=== PATIENT | male | born 1945 | race Caucasian/White ===

== ENCOUNTER 2018-02-23 17:27 | Inpatient (IN) ==
[2018-02-23] MEDS ORDERED: Sod Chloride 0.9% Inj 1,000 ML IV.SIG SCH ×2 (17:45→18:45)
[2018-02-23 18:09] LABS: Baso # (Auto) 0.1 th/mm3 (0.0-0.2); Baso % (Auto) 0.5 % (0.0-2.0); Eos # (Auto) 0.1 th/mm3 (0.0-0.4); Hematocrit 32.7 % (39.0-51.0); Hemoglobin 10.7 gm/dL (13.0-17.0); Lymph # (Auto) 1.8 th/mm3 (1.0-4.8); Mean Corpuscular HGB Conc 32.6 % (32.0-36.0); Mean Corpuscular Hemoglobin 29.9 pg (27.0-34.0); Mean Corpuscular Volume 91.6 fL (80.0-100.0); Mean Platelet Volume 8.6 fL (7.0-11.0); Mono # (Auto) 1.1 th/mm3 (0.0-0.9); Mono % (Auto) 7.4 % (0.0-8.0); Neut # (Auto) 11.9 th/mm3 (1.8-7.7); Neut % (Auto) 79.1 % (16.0-70.0); Platelet Count 286 th/mm3 (150-450); Red Blood Count 3.57 mil/mm3 (4.50-5.90); Red Cell Distribution Width 14.4 % (11.6-17.2)
--- NOTE | 2018-02-23 18:14 | ED ---
HPI General Chief complaint: Weakness Stated complaint: Medical,Evac Time Seen by Provider: 02/23/18 17:37 History of Present Illness HPI Narrative: This is a 72-year-old male with history of hypertension, diabetes mellitus, recent pneumonia, recent congestive heart failure, renal insufficiency, who presents via the [place] [facility] for complaints of weakness and low blood pressure. Apparently last night he was noted to have low blood pressure at the [facility]. It continued into today and when they noted his blood pressure to be below 100 systolic, they called 911 for EMS evaluation. When paramedics arrived, they found him to have a systolic blood pressure in the 60s. Given his CHF and renal insufficiency history, they administered 500 cc of normal saline. It did bring his blood pressure up into the 80s systolic. The patient started to perk up however we did appear to be confused. Son is at the bedside states that his father was doing okay yesterday when they went to visit him however he definitely seems more confused than baseline. Related Data Home Medications Medication Instructions Recorded Confirmed amoxicillin-pot clavulanate 1 tab PO Q12H 02/23/18 02/23/18 [Augmentin] atenolol [Tenormin] 50 mg PO DAILY 02/23/18 02/23/18 budesonide-formoterol [Symbicort] 2 puff INHALATION BID 02/23/18 02/23/18 clopidogrel [Plavix] 75 mg PO DAILY 02/23/18 02/23/18 cyanocobalamin (vitamin B-12) 1,000 mcg IM QMONTH 02/23/18 02/23/18 dexamethasone sodium phosphate 4 mg IV QWEEK 02/23/18 02/23/18 doxazosin 2 mg PO DAILY 02/23/18 02/23/18 fexofenadine [Shiloh Allergy] 60 mg PO BID 02/23/18 02/23/18 furosemide [Lasix] 40 mg PO BID 02/23/18 02/23/18 gabapentin 300 mg PO TID 02/23/18 02/23/18 glipizide 5 mg PO DAILY 02/23/18 02/23/18 guaifenesin [Mucinex] 600 mg PO Q12H 02/23/18 02/23/18 ipratropium-albuterol 3 ml INHALATION QID 02/23/18 02/23/18 lisinopril 10 mg PO DAILY 02/23/18 02/23/18 melatonin 3 mg PO HS PRN 02/23/18 02/23/18 montelukast 10 mg PO QPM 02/23/18 02/23/18 oxycodone-acetaminophen [Percocet] 1 tab PO Q4H PRN 02/23/18 02/23/18 pantoprazole [Protonix] 40 mg PO DAILY 02/23/18 02/23/18 potassium chloride 20 meq PO BID 02/23/18 02/23/18 propranolol 40 mg PO BID 02/23/18 02/23/18 ropinirole [Requip] 2 mg PO HS 02/23/18 02/23/18 sertraline [Zoloft] 50 mg PO DAILY 02/23/18 02/23/18 trazodone 150 mg PO DAILY 02/23/18 02/23/18 Allergies Allergy/AdvReac Type Severity Reaction Status Date / Time codeine Allergy Mild Constipatio Verified 02/23/18 17:36 n Review of Systems ROS Unobtainable ROS Unobtainable: unobtainable due to mental status ROS: all other systems reviewed are negative Constitutional Denies chills and Denies fever(s) Eyes Reports system reviewed and no additional complaints, except as docu ENT Reports system reviewed and no additional complaints, except as docu Cardiovascular Denies chest pain and Reports dyspnea Respiratory Reports chest congestion, Denies cough and Reports dyspnea Gastrointestinal Denies abdominal pain, Denies nausea and Denies vomiting Genitourinary Reports other (Decreased urine output.) Musculoskeletal Reports system reviewed and no additional complaints, except as docu Neurologic Reports confusion, Denies headache(s) and Reports weakness (Generalized) [facility] History Medical History CKD (chronic kidney disease) (Acute) COPD (chronic obstructive pulmonary disease) (Acute) Hypertension (Acute) Surgical History Surgical History Hx of BKA (Acute) Social History Social History Substance History: No History of Abuse Second Hand Smoke Exposure: No Smoking Status: Never smoker How Often Do You Have a Drink Containing Alcohol: Never Recent Travel in [facility] within the Last 8 Weeks: No Recent Out of Country Travel within the Last 8 Weeks: No Immunization History Tetanus Immunization: >5 Years Exam Narrative Exam Narrative: GENERAL: Well-developed well-nourished male in mild respiratory discomfort. SKIN: Focused skin assessment warm/dry. HEAD: Atraumatic. Normocephalic. EYES: No scleral icterus. No injection or drainage. ENT: No nasal bleeding or discharge. Mucous membranes pink and moist. NECK: Trachea midline. No JVD. Supple. CARDIOVASCULAR: Regular rate and rhythm. No murmur appreciated. RESPIRATORY: No obvious rales. Patient does have decreased respiratory effort. GASTROINTESTINAL: Abdomen soft, obese, non-tender, nondistended. MUSCULOSKELETAL: No obvious deformities. No clubbing. No cyanosis. Trace pretibial edema. NEUROLOGICAL: Awake and mildly confused. No obvious cranial nerve deficits. Motor grossly within normal limits. Normal speech. Course Initial Documented Vital Signs Temperature 98.7 F 02/23/18 17:27 Pulse Rate 56 L 02/23/18 17:27 Respiratory Rate 14 02/23/18 17:27 Blood Pressure 82/48 L 02/23/18 17:27 Pulse Oximetry 90 L 02/23/18 17:27 Last Documented Vital Signs Temperature 98.7 F 02/23/18 17:27 Pulse Rate 55 L 02/23/18 18:10 Respiratory Rate 14 02/23/18 18:10 Blood Pressure 81/48 L 02/23/18 18:10 Pulse Oximetry 96 02/23/18 18:10 Critical Care Time Critical Care Time: Yes Total Critical Care Time: 45 Attestation: Aggregate critical care time was 45 minutes. Time to perform other separately billable procedures was not included in the critical care time. My time did not include minutes spent treating any other patients simultaneously or on activities that did not directly contribute to the patient's treatment. The services I provided to this patient were to treat and/or prevent clinically significant deterioration that could result in: I provided critical care services requiring my management, as noted below: Chart data review, documentation time, medication orders and management, vital sign assessments/reviewing monitor data, ordering and reviewing lab tests, ordering and interpreting/reviewing x-rays and diagnostic studies, care of the patient and discussion of the patient with the admitting physicians. Medical Decision Making MDM Narrative Medical decision making narrative: This is a 72-year-old male who was reportedly recently admitted and discharged from [facility] for pneumonia and fluid overload, presents from the [facility] with reported hypotension. Patient reportedly had a systolic blood pressure in the 60s when paramedics arrived. Given his CHF history and fluid overload, they gave him 500 cc of fluid. This brought his blood pressure up into the 80s systolic. Labs show that his creatinine is extremely elevated from baseline. It is above 6. It usually in the 1-2 range. He is been given a second liter of IV fluid. His potassium was also 5.6. He was given 1 g of calcium chloride and 50 mEq of sodium bicarb. Urinalysis also showed a urinary tract infection for which he was given Rocephin. He has cultures pending at this time. Case was discussed with Dr. Treadwell, instructional design manager, who agrees with the above admission. He will see the patient and write admission orders. Medical Screen Exam Complete: Yes Emergency Medical Condition: Yes Differential Diagnosis Differential Diagnosis: Acute kidney injury versus metabolic derangement versus sepsis versus over diuresed Lab Data Result diagrams: 02/23/18 17:45 02/23/18 17:45 Lab Results 02/23/18 02/23/18 02/23/18 Range/Units 17:32 17:45 17:45 WBC 15.0 H (4.0-11.0) th/mm3 RBC 3.57 L (4.50-5.90) mil/mm3 Hgb 10.7 L (13.0-17.0) gm/dL Hct 32.7 L (39.0-51.0) % MCV 91.6 (80.0-100.0) fL MCH 29.9 (27.0-34.0) pg MCHC 32.6 (32.0-36.0) % RDW 14.4 (11.6-17.2) % Plt Count 286 (150-450) th/mm3 MPV 8.6 (7.0-11.0) fL Prelim Diff (Auto) Director Human Services Neut % (Auto) 79.1 H (16.0-70.0) % Lymph % (Auto) 12.0 (9.0-44.0) % [place] % (Auto) 7.4 (0.0-8.0) % Eos % (Auto) 1.0 (0.0-4.0) % Baso % (Auto) 0.5 (0.0-2.0) % Neut # (Auto) 11.9 H (1.8-7.7) th/mm3 Lymph # (Auto) 1.8 (1.0-4.8) th/mm3 [place] # (Auto) 1.1 H (0.0-0.9) th/mm3 Eos # (Auto) 0.1 (0.0-0.4) th/mm3 Baso # (Auto) 0.1 (0.0-0.2) th/mm3 WBC Differential . Differential Comment Auto diff final Sodium (136-145) meq/L Potassium (3.5-5.1) meq/L Chloride (98-107) meq/L Carbon Dioxide (21.0-32.0) meq/L Anion Gap (5-15) meq/L BUN (7-18) mg/dL Creatinine (0.60-1.30) mg/dL Estimated GFR (>89) mL/min Random Glucose (74-106) mg/dL Lactic Acid 0.9 (0.4-2.0) mmol/L Calcium (8.5-10.1) mg/dL Magnesium (1.5-2.5) mg/dL Total Bilirubin (0.2-1.0) mg/dL AST (15-37) U/L ALT (12-78) U/L Alkaline Phosphatase (45-117) U/L Total Creatine Kinase Cancelled CK-MB (CK-2) (0.5-3.6) ng/mL CK-MB (CK-2) % (0.0-4.0) % Troponin I Cancelled Total Protein (6.4-8.2) g/dL Albumin (3.4-5.0) g/dL Urine Color (Yellw/Straw) Urine Clarity (Clear) Urine pH (5.0-8.5) Ur Specific [place] (1.002-1.035) Urine Protein (Neg-Trace) mg/dL Urine Glucose (UA) (Negative) mg/dL Urine Ketones (Negative) mg/dL Urine Occult Blood (Negative) Urine Nitrate (Negative) Urine Bilirubin (Negative) Urine Ictotest (Negative) Urine Urobilinogen (Less than 2) mg/dL Ur Leukocyte Esterase (Negative) Urine RBC (0-3) /hpf Urine WBC (0-5) /hpf Ur Squamous Epith Cells (0-5) /hpf Calcium Oxalate Crystal (None) /hpf Hyaline Casts (0-3) /lpf Micro UA Comment Ur Microscopic Review Urine Culture Comments 02/23/18 02/23/18 Range/Units 17:45 18:00 WBC (4.0-11.0) th/mm3 RBC (4.50-5.90) mil/mm3 Hgb (13.0-17.0) gm/dL Hct (39.0-51.0) % MCV (80.0-100.0) fL MCH (27.0-34.0) pg MCHC (32.0-36.0) % RDW (11.6-17.2) % Plt Count (150-450) th/mm3 MPV (7.0-11.0) fL Prelim Diff (Auto) Neut % (Auto) (16.0-70.0) % Lymph % (Auto) (9.0-44.0) % [place] % (Auto) (0.0-8.0) % Eos % (Auto) (0.0-4.0) % Baso % (Auto) (0.0-2.0) % Neut # (Auto) (1.8-7.7) th/mm3 Lymph # (Auto) (1.0-4.8) th/mm3 [place] # (Auto) (0.0-0.9) th/mm3 Eos # (Auto) (0.0-0.4) th/mm3 Baso # (Auto) (0.0-0.2) th/mm3 WBC Differential Differential Comment Sodium 133 L (136-145) meq/L Potassium 5.6 H (3.5-5.1) meq/L Chloride 96 L (98-107) meq/L Carbon Dioxide 26.8 (21.0-32.0) meq/L Anion Gap 10 (5-15) meq/L BUN 61 H (7-18) mg/dL Creatinine 6.18 H (0.60-1.30) mg/dL Estimated GFR 9 L (>89) mL/min Random Glucose 97 (74-106) mg/dL Lactic Acid (0.4-2.0) mmol/L Calcium 7.9 L (8.5-10.1) mg/dL Magnesium 2.5 (1.5-2.5) mg/dL Total Bilirubin 0.5 (0.2-1.0) mg/dL AST 43 H (15-37) U/L ALT 27 (12-78) U/L Alkaline Phosphatase 76 (45-117) U/L Total Creatine Kinase 561 H CK-MB (CK-2) 1.4 (0.5-3.6) ng/mL CK-MB (CK-2) % 0.2 (0.0-4.0) % Troponin I Less than 0.02 L Total Protein 7.3 (6.4-8.2) g/dL Albumin 2.7 L (3.4-5.0) g/dL Urine Color Yellow (Yellw/Straw) Urine Clarity Cloudy H (Clear) Urine pH 5.0 (5.0-8.5) Ur Specific [place] 1.023 (1.002-1.035) Urine Protein 100 H (Neg-Trace) mg/dL Urine Glucose (UA) Negative (Negative) mg/dL Urine Ketones Trace H (Negative) mg/dL Urine Occult Blood Moderate H (Negative) Urine Nitrate Negative (Negative) Urine Bilirubin Negative (Negative) Urine Ictotest Negative (Negative) Urine Urobilinogen Less than 2 (Less than 2) mg/dL Ur Leukocyte Esterase Large H (Negative) Urine RBC 91 H (0-3) /hpf Urine WBC 50 H (0-5) /hpf Ur Squamous Epith Cells 1 (0-5) /hpf Calcium Oxalate Crystal Occasional H (None) /hpf Hyaline Casts 24 (0-3) /lpf Micro UA Comment Culture indicated Ur Microscopic Review Not Reportable Urine Culture Comments Culture indicated Imaging Data Radiologist's impression: Chest X-Ray 02/23/18 17:38 CONCLUSION: Dense consolidation right lung base with moderate right effusion. Mild left basilar airspace disease. Differential diagnosis includes pneumonia and parapneumonic effusion. Discharge Plan Discharge Disposition Patient Disposition: ED Admit(ED Internal Use Only) Discharge Order Discharge Orders: ED Use Only Admit Order (Routine); Ordered 02/23/18 Ordered By: Eduardo Price Discharge Details Diagnosis: Hypotension, [id number] kidney injury, History of pneumonia, Urinary tract infection Physicians Team ED Provider: Eduardo Price Primary Care Provider: Shahrzad Nevarez Attending Provider: Chay Treadwell Discharge Interventions Interventions: Vital Signs Last Done: 02/23/18 18:10 Status ED Status: Admitted Patient
[2018-02-23 18:20] LABS: Alanine Aminotransferase 27 U/L (12-78); Albumin 2.7 g/dL (3.4-5.0); Anion Gap 10 meq/L (5-15); Aspartate Aminotransferase 43 U/L (15-37); Blood Urea Nitrogen 61 mg/dL (7-18); Calcium 7.9 mg/dL (8.5-10.1); Carbon Dioxide 26.8 meq/L (21.0-32.0); Chloride 96 meq/L (98-107); Glomerular Filtration Rate 9 mL/min (>89); Glucose,Random 97 mg/dL (74-106); Magnesium 2.5 mg/dL (1.5-2.5); Potassium 5.6 meq/L (3.5-5.1); Sodium 133 meq/L (136-145)
[2018-02-23 18:25] LABS: Alkaline Phosphatase 76 U/L (45-117); Creatine Kinase 561 U/L (39-308); Total Protein 7.3 g/dL (6.4-8.2)
[2018-02-23 18:38] LABS: CKMB Percent 0.2 % (0.0-4.0); Creatine Kinase MB 1.4 ng/mL (0.5-3.6)
[2018-02-23 18:41] LABS: Calcium Oxalate Crystals,Urine Occasional /hpf; Clarity,Urine Cloudy (Clear); Glucose,Urine (UA) Negative (Negative); Hyaline Casts,Urine 24 /lpf (0-3); Leukocyte Esterase,Urine Large (Negative); Nitrite,Urine Negative (Negative); Specific Gravity,Urine 1.023 (1.002-1.035); Squamous Epithelial Cell,Urine 1 /hpf (0-5)
--- NOTE | 2018-02-23 18:47 | XR ---
EXAM DATE: 02/23/2018 6:31 PM EST AGE/SEX: 72 years / Male INDICATIONS: Fever and short of breath. CLINICAL DATA: This is the patient's initial encounter. Patient reports that signs and symptoms have been present for 3 days and indicates a pain score of 0/10. MEDICAL/SURGICAL HISTORY: . COPD, CHF, diabetic None. COMPARISON: [facility] [place], CHEST SINGLE AP, 11/03/2012. . FINDINGS: Bilateral airspace disease worse at the bases and right greater than left. Moderate right effusion. F indings are new prior exam from 2012. Previous fixation cervical spine. CONCLUSION: Dense consolidation right lung base with moderate right effusion. Mild left basilar airspace disease. Differential diagnosis includes pneumonia and parapneumonic effusion. Electronically signed by: Anam Escobar MD Board Certified Radiologist 02/23/2018 6:46 PM EST
[2018-02-23 18:49] LABS: Bilirubin,Urine Negative (Negative); Color,Urine Yellow (Yellw/Straw); Ictotest,Urine Negative (Negative)
[2018-02-23] MEDS ORDERED: Calcium Chloride Inj 1 GM/10 ML Syringe IV.PUSH ONE (18:50)
[2018-02-23] MEDS ORDERED: Bisacodyl 10 MG Supp RECTAL PRN (19:37)
[2018-02-23] MEDS ORDERED: DOPamine Inj 800 MG in Sodium Chlor 0.9% Inj 500 ML IV.CONT PRN (19:52)
--- NOTE | 2018-02-23 20:10 | P.HPCC ---
History of Present Illness Service: Critical care medicine Primary Care Physician: Shahrzad Nevarez MD Chief Complaint: Generalized weakness, altered mental status History of Present Illness: 72-year-old male with a medical history significant for diabetes mellitus, hypertension, CHF, CKD who was recently discharged from [facility] after being treated for questionable pneumonia and CHF. He was reportedly over diuresed. He was [facility] back to the [place] [facility] where he developed weakness and low blood pressure. EMS was called and patient was noted to have systolic blood pressure in the 60s. He was given 500 cc of normal saline and brought to the ER at [facility]. He was also noted to be bradycardic with heart rate in the 50s. He is on 2 beta blockers on his medication list including propranolol and atenolol in addition to lisinopril. On arrival in the ER he was given an additional 1 L normal saline bolus as he was felt to be dehydrated with over diuresis. He was also noted to be in worsening renal failure with creatinine of 6 and hyperkalemia. He was otherwise awake and alert and denied any chest pain. He was comfortable on nasal cannula. Denied any fevers or chills recently. His altered mental status improved somewhat after receiving fluids with improvement in his blood pressure. Patient was accepted for admission by critical care medicine service. When I evaluated the patient he was maintaining his mean arterial pressure at 65 with systolic blood pressure in the upper 80s. His heart rate was in the 60s. He was maintaining O2 sats on 3 L nasal cannula. Patient is not a very good historian possibly second to altered mental status. 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 Inpatient Certification: I certify that the inpatient services were ordered in accordance with Medicare regulations governing the order. 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 - Medical History Medical History: Medical History (Last Updated 02/23/18 @ 17:34 by Cuca Anderson) CKD (chronic kidney disease) COPD (chronic obstructive pulmonary disease) Hypertension - Surgical History Surgical History: Surgical History (Last Updated 02/23/18 @ 17:34 by Cuca Anderson) Hx of BKA - Tobacco History Second Hand Smoke Exposure: No Smoking Status: Never smoker - Alcohol History How Often Do You Have a Drink Containing Alcohol: Never - Substance Use History Substance History: No History of Abuse - Travel History Recent Travel in the [place] Within the Last 8 Weeks: No Recent Travel Out of the Country Within the Last 8 Weeks: No - Immunization History Tetanus Immunization: >5 Years Medications and Allergies Active Medications: Active Medications Al Hydroxide/Mg Hydroxide (Milk Of Magnesia Liq) 30 ml PO Q12H PRN PRN Reason: Mild Constipation Albuterol (Albuterol Neb (Denice)) 2.5 mg NEB Q2HR NEB PRN PRN Reason: SHORTNESS OF BREATH/WHEEZING Albuterol (Duoneb Neb (Prn)) 1 ampul NEB Q6HR NEB DENICE Bisacodyl (Dulcolax Supp) 10 mg RECTAL DAILY PRN PRN Reason: SEVERE CONSITIPATION Chlorhexidine Gluconate (Chlorhexidine 2% Cloth) 3 pack TOPICAL DAILY@0400 DENICE Stop: 03/01/18 03:59 Chlorhexidine Gluconate (Chlorhexidine 2% Cloth) 3 pack TOPICAL DAILY@0400 PRN PRN Reason: Extra cloth needed Stop: 03/01/18 03:59 Heparin Sodium (Porcine) (Heparin Inj) 5,000 units SQ Q12H [facility] Sodium Chloride (Ns Inj) 1,000 mls @ 84 mls/hr IV.CONT .[id number] [facility] Dopamine HCl 800 mg/ Sodium (Chloride) 520 mls @ 7.78 mls/hr IV.CONT TITRATE PRN; Protocol PRN Reason: See Protocol Lactulose (Lactulose Liq) 30 ml PO DAILY PRN PRN Reason: SEVERE CONSITIPATION Ondansetron HCl (Zofran Inj) 4 mg IV.PUSH Q6H PRN PRN Reason: NAUSEA OR VOMITING Senna/Docusate Sodium (Jo-Colace) 1 tab PO BID [facility] Sennosides (Senokot) 17.2 mg PO Q12H PRN PRN Reason: Moderate Constipation Sodium Chloride (Ns Flush) 2 ml IV.FLUSH BID [facility] Sodium Chloride (Ns Flush) 2 ml IV.FLUSH PRN PRN PRN Reason: FLUSH AFTER USING IV ACCESS Sodium Polystyrene Sulfonate (Kayexalate Liq) 30 gm PO Q2H DENICE Stop: 02/23/18 23:46 Terbutaline Sulfate (Brethine Inj) 1 mg SQ ONCE PRN PRN Reason: Extravasation Allergies Allergy/AdvReac Type Severity Reaction Status Date / Time codeine Allergy Mild Constipatio Verified 02/23/18 17:36 n Home Medications Medication Instructions Recorded Confirmed Type amoxicillin-pot clavulanate 1 tab PO Q12H 02/23/18 02/23/18 History [Augmentin] atenolol [Tenormin] 50 mg PO DAILY 02/23/18 02/23/18 History budesonide-formoterol [Symbicort] 2 puff INHALATION BID 02/23/18 02/23/18 History clopidogrel [Plavix] 75 mg PO DAILY 02/23/18 02/23/18 History cyanocobalamin (vitamin B-12) 1,000 mcg IM QMONTH 02/23/18 02/23/18 History dexamethasone sodium phosphate 4 mg IV QWEEK 02/23/18 02/23/18 History doxazosin 2 mg PO DAILY 02/23/18 02/23/18 History fexofenadine [Shiloh Allergy] 60 mg PO BID 02/23/18 02/23/18 History furosemide [Lasix] 40 mg PO BID 02/23/18 02/23/18 History gabapentin 300 mg PO TID 02/23/18 02/23/18 History glipizide 5 mg PO DAILY 02/23/18 02/23/18 History guaifenesin [Mucinex] 600 mg PO Q12H 02/23/18 02/23/18 History ipratropium-albuterol 3 ml INHALATION QID 02/23/18 02/23/18 History lisinopril 10 mg PO DAILY 02/23/18 02/23/18 History melatonin 3 mg PO HS PRN 02/23/18 02/23/18 History montelukast 10 mg PO QPM 02/23/18 02/23/18 History oxycodone-acetaminophen [Percocet] 1 tab PO Q4H PRN 02/23/18 02/23/18 History pantoprazole [Protonix] 40 mg PO DAILY 02/23/18 02/23/18 History potassium chloride 20 meq PO BID 02/23/18 02/23/18 History propranolol 40 mg PO BID 02/23/18 02/23/18 History ropinirole [Requip] 2 mg PO HS 02/23/18 02/23/18 History sertraline [Zoloft] 50 mg PO DAILY 02/23/18 02/23/18 History trazodone 150 mg PO DAILY 02/23/18 02/23/18 History Results - Labs CBC & Chem 7: 02/23/18 17:45 02/23/18 17:45 Labs: Short CBC 02/23/18 Range/Units 17:45 WBC 15.0 H (4.0-11.0) th/mm3 Hgb 10.7 L (13.0-17.0) gm/dL Hct 32.7 L (39.0-51.0) % Plt Count 286 (150-450) th/mm3 BMP 02/23/18 17:45 Sodium 133 L Potassium 5.6 H Chloride 96 L Carbon Dioxide 26.8 BUN 61 H Creatinine 6.18 H Calcium 7.9 L Cardiac Enzymes 02/23/18 02/23/18 Range/Units 17:45 17:45 Total Creatine Kinase Cancelled 561 H CK-MB (CK-2) 1.4 (0.5-3.6) ng/mL Troponin I Cancelled Less than 0.02 L Liver Function 02/23/18 Range/Units 17:45 Total Bilirubin 0.5 (0.2-1.0) mg/dL AST 43 H (15-37) U/L ALT 27 (12-78) U/L Alkaline Phosphatase 76 (45-117) U/L Albumin 2.7 L (3.4-5.0) g/dL Urine 02/23/18 Range/Units 18:00 Urine Color Yellow (Yellw/Straw) Urine Clarity Cloudy H (Clear) Urine pH 5.0 (5.0-8.5) Ur Specific [place] 1.023 (1.002-1.035) Urine Protein 100 H (Neg-Trace) mg/dL Urine Glucose (UA) Negative (Negative) mg/dL - Imaging Impressions Chest X-Ray 02/23/18 17:38 CONCLUSION: Dense consolidation right lung base with moderate right effusion. Mild left basilar airspace disease. Differential diagnosis includes pneumonia and parapneumonic effusion. Exam Vital signs: Vital Signs 02/23/18 17:27 02/23/18 17:48 02/23/18 18:10 Temperature 98.7 F Pulse Rate 56 L 55 L 55 L Respiratory Rate 14 14 Blood Pressure 82/48 L 81/48 L Pulse Oximetry 90 L 97 96 Intake & Output 02/23/18 02/23/18 02/24/18 06:59 18:59 06:59 Intake Total 1000 / 1000 Balance 1000 / 1000 Weight 99.79 kg Intake: IV 1000 / 1000 NS Inj 1,000 ML @ 1000 mls/hr 1000 / 1000 IV.SIG BOLUS DENICE Rx#:[id number] Narrative: HEENT/Neuro: No pallor or icterus, tongue moist, LIANG, Awake alert, however otherwise confused, nonfocal grossly, moving all 4 extremities Neck: No JVD Chest/pulmonary: Air entry decreased bilaterally, scattered rhonchi, no wheezing Cardiovascular: S1-S2 regular no gallop or murmur GI/abdomen: Soft, nontender, bowel sounds present Extremities: Left BKA status noted warm bilaterally, no edema Caprini VTE Risk Assessment Caprini VTE Risk Assessment: Moderate/High Risk (score >= 2) Caprini Risk Assessment Model: Point Value = 1 Point Value = 2 Point Value = 3 Point Value = 5 Age 41-60 Minor surgery BMI > 25 kg/m2 Swollen legs Varicose veins or History of unexplained or recurrent spontaneous Oral contraceptives or hormone replacement Sepsis (< 1 month) Serious lung disease, including pneumonia (< 1 month) Abnormal pulmonary function Acute myocardial infarction Congestive heart failure (< 1 month) History of inflammatory bowel disease Medical patient at bed rest Age 61-74 Arthroscopic surgery Major open surgery (> 45 min) Laparoscopic surgery (> 45 min) Malignancy Confined to bed (> 72 hours) Immobilizing plaster cast Central venous access Age >= 75 History of VTE Family history of VTE Factor V Leiden Prothrombin [id number] Lupus anticoagulant Anticardiolipin antibodies Elevated serum homocysteine Heparin-induced thrombocytopenia Other congenital or acquired thrombophilia Stroke (< 1 month) Elective arthroplasty Hip, pelvis, or leg fracture Acute spinal cord injury (< 1 month) Prophylaxis Regimen: Total Risk Factor Score Risk Level Prophylaxis Regimen 0-1 Low Early ambulation 2 Moderate Order ONE of the following: *Sequential Compression Device (SCD) *Heparin 5000 units SQ BID 3-4 Higher Order ONE of the following medications: *Heparin 5000 units SQ TID *Enoxaparin/Lovenox 40 mg SQ daily (WT < 150 kg, CrCl > 30 mL/min) *Enoxaparin/Lovenox 30 mg SQ daily (WT < 150 kg, CrCl > 10-29 mL/min) *Enoxaparin/Lovenox 30 mg SQ BID (WT < 150 kg, CrCl > 30 mL/min) AND/OR *Sequential Compression Device (SCD) 5 or more Highest Order ONE of the following medications: *Heparin 5000 units SQ TID (Preferred with Epidurals) *Enoxaparin/Lovenox 40 mg SQ daily (WT < 150 kg, CrCl > 30 mL/min) *Enoxaparin/Lovenox 30 mg SQ daily (WT < 150 kg, CrCl > 10-29 mL/min) *Enoxaparin/Lovenox 30 mg SQ BID (WT < 150 kg, CrCl > 30 mL/min) AND *Sequential Compression Device (SCD) Assessment and Plan - Assessment and Plan Plan: 72-year-old male with: Hypotension which is probably multifactorial secondary to overdiuresis, antihypertensives BETSEY/CKD Hyperkalemia History of CHF COPD Leukocytosis Possible sepsis History of hypertension Plan: Neuro: Avoid sedatives and narcotics, follow neuro status. Continue gabapentin Cardiovascular: Status post IV fluids. Initiate dopamine as needed to maintain MAP greater than 65. Hold all antihypertensives. Continue antiplatelet therapy. Troponin negative. Check BNP, 2D echo. Cardiology consult for further evaluation of CHF/cardiomyopathy Pulmonary: Supplemental O2, bronchodilators. GI/liver: Renal diet Renal/: Ordered CT abdomen pelvis to evaluate for obstruction. 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 Will consult nephrology for further evaluation of BETSEY/CKD. Hold lisinopril, antihypertensives, diuretics. Gentle hydration. ID: On oral Augmentin for recent diagnosis of pneumonia. Will initiate IV cefepime while awaiting culture results. Obtain medical records from [facility] regarding recent treatment Heme: Follow CBC Endocrine: Watch for hyperglycemia, SSI for glycemic control if needed Prophylaxis: Pepcid/SCDs. Subcu heparin Condition critical Time spent on critical care excluding procedures 60 minutes
[2018-02-23] MEDS: Sod Chloride 0.9% Inj 1,000 ML IV.CONT SCH (21:00)
[2018-02-23] MEDS: Heparin - SQ 10,000 UNITS/ML Vial SQ SCH (21:03)
[2018-02-23] MEDS: Sodium Polystyrene Sulfonate/Sorbitol Liq 15 GM/60 ML UDC PO SCH ×2 (21:10→22:41)
--- NOTE | 2018-02-23 21:25 | CT ---
EXAM DATE: 02/23/2018 9:03 PM EST AGE/SEX: 72 years / Male INDICATIONS: Acute kidney injury. Hypotension. CLINICAL DATA: This is the patient's initial encounter. Patient reports that signs and symptoms have been present for 1 day and indicates a pain score of 5/10. MEDICAL/SURGICAL HISTORY: Chronic obstructive pulmonary disease. Hypertension. None. RADIATION DOSE: 16.28 CTDI (mGy) COMPARISON: [facility], CT ABDOMEN AND PELVIS W/ CONTRAST, 07/13/2016. . TECHNIQUE: Multiple contiguous axial images were obtained through the abdomen. Images were obtained using multiple row detector helical technique. Using automated exposure control and adjustment of the mA and/or kV according to patient size, radiation dose was kept as low as reasonably achievable to o btain optimal diagnostic quality images. DICOM format image data is available electronically for rev iew and comparison. FINDINGS: Comparison is 2016. There is dense consolidation at the right lung base with right pleural effusion t hat appears to be at least partially loculated. Dependent atelectasis left lung base. No acute findings in the liver, spleen, adrenals, kidneys or pancreas. Previous cholecystectomy. There is no free fluid. No bowel obstruction. No adenopathy. Valdez catheter present in the bladder. CONCLUSION: 1. No acute findings within the abdomen and pelvis. Previous cholecystectomy. Mild renal cortical at rophy. Valdez catheter in the bladder. Small fat-containing umbilical hernia. 2. Dense consolidation right lung base with probable partially loculated right pleural effusion. Electronically signed by: Anam Escobar MD Board Certified Radiologist 02/23/2018 9:23 PM EST
[2018-02-23] MEDS: Senna/Docusate Sodium 8.6/50 MG Tablet PO SCH (22:37)
[2018-02-23 23:53] LABS: Calcium 8.5 mg/dL (8.5-10.1); Carbon Dioxide 26.9 meq/L (21.0-32.0); Potassium 4.3 meq/L (3.5-5.1)
[2018-02-24] MEDS: Sodium Polystyrene Sulfonate/Sorbitol Liq 15 GM/60 ML UDC PO SCH (01:08)
[2018-02-24 03:09] LABS: Baso % (Auto) 0.3 % (0.0-2.0); Eos # (Auto) 0.2 th/mm3 (0.0-0.4); Eos % (Auto) 1.3 % (0.0-4.0); Hematocrit 30.8 % (39.0-51.0); Hemoglobin 10.1 gm/dL (13.0-17.0); Lymph # (Auto) 1.5 th/mm3 (1.0-4.8); Lymph % (Auto) 13.5 % (9.0-44.0); Mean Corpuscular HGB Conc 32.8 % (32.0-36.0); Mean Corpuscular Hemoglobin 29.8 pg (27.0-34.0); Mean Corpuscular Volume 90.8 fL (80.0-100.0); Mean Platelet Volume 8.3 fL (7.0-11.0); Mono # (Auto) 1.1 th/mm3 (0.0-0.9); Mono % (Auto) 9.7 % (0.0-8.0); Neut # (Auto) 8.6 th/mm3 (1.8-7.7); Neut % (Auto) 75.2 % (16.0-70.0); Platelet Count 229 th/mm3 (150-450); Red Blood Count 3.39 mil/mm3 (4.50-5.90); Red Cell Distribution Width 14.5 % (11.6-17.2); White Blood Count 11.4 th/mm3 (4.0-11.0)
[2018-02-24 03:35] LABS: Alanine Aminotransferase 23 U/L (12-78); Albumin 2.5 g/dL (3.4-5.0); Anion Gap 9 meq/L (5-15); Aspartate Aminotransferase 21 U/L (15-37); Blood Urea Nitrogen 64 mg/dL (7-18); Carbon Dioxide 27.8 meq/L (21.0-32.0); Chloride 99 meq/L (98-107); Glomerular Filtration Rate 9 mL/min (>89); Glucose,Random 100 mg/dL (74-106); Magnesium 2.4 mg/dL (1.5-2.5); Potassium 4.3 meq/L (3.5-5.1); Sodium 136 meq/L (136-145)
[2018-02-24 03:37] LABS: Alkaline Phosphatase 71 U/L (45-117); Total Protein 6.8 g/dL (6.4-8.2)
[2018-02-24 03:57] LABS: Phosphorus 9.2 mg/dL (2.5-4.9)
[2018-02-24] MEDS ORDERED: Chlorhexidine Gluconate 2% 1 Pack (2 Cloths) TOPICAL PRN (04:00)
[2018-02-24] MEDS: Chlorhexidine Gluconate 2% 1 Pack (2 Cloths) TOPICAL SCH (04:00)
--- NOTE | 2018-02-24 05:58 | XR ---
EXAM DATE: 02/24/2018 5:18 AM EST AGE/SEX: 72 years / Male INDICATIONS: Shortness of breath, pneumonia and congestion by history. CLINICAL DATA: This is the patient's subsequent encounter. Patient reports that signs and symptoms h ave been present for 4 - 6 days and indicates a pain score of 0/10. MEDICAL/SURGICAL HISTORY: Chronic obstructive pulmonary disease. Congestive heart failure. Di abetes. Fusion, cervical. COMPARISON: [facility] – [place], CHEST 1V SINGLE AP, 02/23/2018. . FINDINGS: A single AP semierect view of the chest was obtained. This demonstrates a moderate size right pleural effusion and small left effusion. Hazy opacity remains in both lungs right greater than left. The he art size appears enlarged. The bony thorax is intact multiple overlying electrocardiogram leads. Neeru ent is status post lower cervical fusion. CONCLUSION: No significant change. The bilateral airspace disease and bilateral effusions remain right greater th an left. Electronically signed by: Dejon Avalos MD Board Certified Radiologist 02/24/2018 5:57 AM EST
[2018-02-24] MEDS: Sod Chloride 0.9% Inj 1,000 ML IV.CONT SCH ×2 (08:06→22:35)
[2018-02-24] MEDS: Heparin - SQ 10,000 UNITS/ML Vial SQ SCH ×2 (08:07→20:09)
[2018-02-24] MEDS: Senna/Docusate Sodium 8.6/50 MG Tablet PO SCH ×2 (08:07→21:11)
--- NOTE | 2018-02-24 12:30 | MB ---
cc: Ephraim Thacker MD DATE: 02/24/2018 REASON FOR CONSULTATION: Acute on chronic renal disease management. HISTORY OF PRESENT ILLNESS: This is a 72-year-old male with history of chronic kidney disease. 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 The patient apparently has a history of CKD otherwise. He was followed in the [facility] and was apparently admitted here yesterday. At the [facility], there was concern that the patient had developed volume depletion as well as overdiuresis for an underlying history of CHF. Apparently in the field, the patient was found to have a systolic blood pressure in the 60s and a heart rate in the 50s, as he had been on beta blockers as well. The patient was admitted here to the ICU. He was started on IV fluids and given dopamine initially and his systolic blood pressure has improved to the 100s now. Regarding his renal function, the patient presented with a creatinine level of 6.1 and potassium level of 5.6. Overnight with fluids, the creatinine has improved slightly to a level of 5.9 with a potassium of 4.3. He made 120 mL of urine output overnight; however, over the last 4 hours, he has made another 120 mL of urine. At this point, the patient is resting in bed comfortably. He denies any acute complaints other than some soreness on his hip. Nephrology was consulted for further evaluation. REVIEW OF SYSTEMS: The patient denies any fevers, chills. No nausea, no vomiting. Has had decreased p.o. intake, apparently for several weeks per the patient. No diarrhea, no constipation. Otherwise, review of systems negative. PAST MEDICAL HISTORY: Includes COPD, CKD, hypertension, dyslipidemia, diabetes with BKA, CHF. SOCIAL HISTORY: No alcohol, tobacco or drug use noted. The patient lives at [facility]. FAMILY HISTORY: Unknown. ALLERGIES: Include CODEINE allergy. ALLERGIES AT HOME: Included: 1. Augmentin 2. Tenormin. 3. Symbicort. 4. Plavix. 5. Vitamin B12. 6. Colace. 7. Doxazosin. 8. Lasix 40 mg p.o. b.i.d. 9. Gabapentin. 10. Glipizide. 11. Mucinex. 12. Albuterol. 13. Lisinopril 10 mg p.o. daily. 14. Melatonin. 15. Montelukast. 16. Percocet p.r.n. 17. Protonix. 18. Potassium chloride 20 mEq p.o. b.i.d. 19. Propranolol 40 mg p.o. b.i.d. 20. Ropinirole. 21. Zoloft. 22. Trazodone 150 mg p.o. daily. PHYSICAL EXAMINATION: GENERAL: At time of evaluation, awake, alert, some confusion; however, no apparent distress. HEENT: Neck is soft, supple. CARDIAC: Regular rate and rhythm. PULMONARY: Clear to auscultation. Decreased breath sounds at the bases. ABDOMEN: Soft, obese, nontender, nondistended. EXTREMITIES: No edema. NEUROLOGIC: Right BKA. VITAL SIGNS: Temperature 98.5, pulse 53, respiratory rate 17, blood pressure 81/49. LABORATORY DATA: Sodium 136, potassium 4.3, chloride 99, bicarbonate 27.8, BUN 64, creatinine 5.9 with glucose of 90, phosphorus of 9.2, calcium 8.0, albumin 2.5. White count 11.4, hemoglobin 10.1, hematocrit 30.8 with a platelet count of 229. ASSESSMENT AND PLAN: 1. Acute on chronic kidney disease, unknown baseline renal function. Previous creatinine level; however, of 1.8 in September 2017. Patient presented here with a creatinine of 6.1, which is improved slightly to a level of 5.9 today. The patient has urinalysis with significant hyaline cast suggestive of volume depletion. In addition, he presented with systolic blood pressures in the 60s. There was a concern of possible over diuresis from the [facility]. At this point, agree with IV fluids. The patient has been receiving IV fluids here currently with normal saline, currently at 80 mL an hour. He received IV fluid boluses previously. He also has been receiving dopamine and this is being titrated down as tolerated. The patient is making some urine output now, which is encouraging. He has made 125 mL of urine output over the last 4 hours. Continue with the fluid repletion at this point and blood pressure support as tolerated. No acute indication for dialysis at this point. His potassium level improved from a level of 5.6 to 4.3. We will continue to monitor for improvement in potassium level as well as creatinine levels with increasing in urine output. If there is little improvement or worsening dysfunction, hemodialysis may be considered. However, at this point his volume status and electrolytes are otherwise stable. Continue with IV fluids. 2. Hyperkalemia. The patient had initial potassium of 5.6, this is improved at this point to a level of 4.3. He had been receiving p.o. potassium supplementation at the [facility] as well. Continue with IV fluids. Hold any potassium supplementation at this point and continue to monitor. 3. Diabetes. Continue to monitor glucose levels. 4. Hypertension. The patient presented with hypotension here. Hold blood pressure medications and continue to monitor for improvement with volume repletion. 5. Congestive heart failure. The patient had been receiving Lasix p.o. at the [facility] with 40 mg p.o. b.i.d. dosing. At this point, hold any diuretics and continue to monitor for further improvement. The patient's volume status is stable at this point. 6. Bradycardia. The patient has a heart rate in the 50s. He has been on beta blockers at the [facility]. Continue to follow with the critical care team. 7. Recent pneumonia. Apparently, the patient had a recent pneumonia and had been on Augmentin. The patient is also coming from the [facility]. Continue followup with critical care. 8. Chronic kidney disease. We will evaluate renal ultrasound to evaluate for any signs of chronic kidney disease. MD GALILEA MontesP/ct , 11:56 AM , 12:08 PM MTDReagan
--- NOTE | 2018-02-24 13:42 | P.PNCC ---
Subjective Subjective Remarks/Hospital Course: 02/24: Patient alert and oriented. GCS of 15 patient continues on IV hydration per nephrology recommendations 84 cc/an hour. Renal diet initiated. The patient remains normotensive. No requirements for dopamine infusion last evening. Objective Vital Signs / I&O: Vital Signs 02/23/18 17:27 02/23/18 17:48 02/23/18 18:10 Temperature 98.7 F Pulse Rate 56 L 55 L 55 L Respiratory Rate 14 14 Blood Pressure 82/48 L 81/48 L Pulse Oximetry 90 L 97 96 02/23/18 19:00 02/23/18 19:30 02/23/18 20:00 Temperature Pulse Rate 54 L 56 L 62 Respiratory Rate 19 18 18 Blood Pressure 91/55 L 86/53 L 104/57 L Pulse Oximetry 97 96 100 02/23/18 21:22 02/23/18 21:29 02/23/18 21:30 Temperature 97.6 F Pulse Rate 65 68 57 L Respiratory Rate 24 18 Blood Pressure 99/55 L Pulse Oximetry 72 L 02/23/18 21:49 02/23/18 22:00 02/23/18 22:30 Temperature Pulse Rate 61 59 L 60 Respiratory Rate 12 23 12 Blood Pressure 99/53 L 94/51 L Pulse Oximetry 91 L 99 97 02/23/18 23:00 02/23/18 23:30 02/24/18 00:00 Temperature 97.6 F Pulse Rate 59 L 57 L 54 L Respiratory Rate 17 11 L 12 Blood Pressure 93/55 L 88/50 L 84/51 L Pulse Oximetry 97 100 100 02/24/18 00:30 02/24/18 01:00 02/24/18 01:28 Temperature Pulse Rate 53 L 51 L 57 L Respiratory Rate 9 L 8 L 20 Blood Pressure 85/49 L 83/48 L 94/50 L Pulse Oximetry 99 99 98 02/24/18 01:30 02/24/18 02:00 02/24/18 02:34 Temperature Pulse Rate 56 L 52 L 50 L Respiratory Rate 20 16 8 L Blood Pressure 100/52 L 90/54 L 92/51 L Pulse Oximetry 99 99 100 02/24/18 03:00 02/24/18 03:07 02/24/18 03:22 Temperature Pulse Rate 49 L 50 L 50 L Respiratory Rate 10 L 13 12 Blood Pressure 82/48 L 90/52 L Pulse Oximetry 100 100 02/24/18 03:30 02/24/18 04:00 02/24/18 04:30 Temperature 97.6 F Pulse Rate 49 L 50 L 49 L Respiratory Rate 14 13 8 L Blood Pressure 89/53 L 90/50 L 87/54 L Pulse Oximetry 100 100 100 02/24/18 05:00 02/24/18 05:30 02/24/18 06:00 Temperature Pulse Rate 51 L 52 L 51 L Respiratory Rate 10 L 12 15 Blood Pressure 98/55 L 91/52 L 91/53 L Pulse Oximetry 100 99 99 02/24/18 06:30 02/24/18 07:00 02/24/18 07:30 Temperature Pulse Rate 51 L 51 L 53 L Respiratory Rate 18 11 L 16 Blood Pressure 88/50 L 95/51 L 98/57 L Pulse Oximetry 99 100 99 02/24/18 08:00 02/24/18 08:30 02/24/18 09:00 Temperature 98.5 F Pulse Rate 51 L 52 L 53 L Respiratory Rate 15 17 33 H Blood Pressure 93/54 L 93/55 L 81/49 L Pulse Oximetry 100 100 99 02/24/18 09:06 02/24/18 09:30 02/24/18 10:00 Temperature Pulse Rate 52 L 51 L 51 L Respiratory Rate 20 14 16 Blood Pressure 90/52 L 98/53 L Pulse Oximetry 96 98 98 02/24/18 10:30 02/24/18 11:00 02/24/18 11:30 Temperature Pulse Rate 55 L 53 L 51 L Respiratory Rate 17 11 L 11 L Blood Pressure 95/76 L 101/59 L 101/57 L Pulse Oximetry 97 97 97 02/24/18 12:00 02/24/18 12:30 02/24/18 13:00 Temperature 97.5 F L Pulse Rate 51 L 52 L 53 L Respiratory Rate 11 L 15 31 H Blood Pressure 95/55 L 112/56 L 104/59 L Pulse Oximetry 97 98 96 02/24/18 13:30 Temperature Pulse Rate 60 Respiratory Rate 38 H Blood Pressure 106/57 L Pulse Oximetry 95 Intake & Output 02/23/18 02/24/18 02/24/18 18:59 06:59 18:59 Intake Total 1000 / 1000 1100 / 1100 1100 / 1100 Output Total 125 / 125 Balance 1000 / 1000 975 / 975 1100 / 1100 Weight 99.79 kg 108.9 kg Intake: IV 1000 / 1000 1100 / 1100 1100 / 1100 NS Inj 1,000 ML @ 84 mls/hr IV. 1000 / 1000 CONT .[id number] BASIL Rx#:[id number] Maxipime Inj 1,000 MG In NS Inj 100 / 100 100 / 100 100 ML @ 200 mls/hr IV.SIG Q12H BASIL Rx#:[id number] NS Inj 1,000 ML @ 1000 mls/hr 1000 / 1000 1000 / 1000 IV.SIG BOLUS BSAIL Rx#:[id number] Output: Urine Amount (Catheter) 125 / 125 Indwelling Urethral Catheter 125 / 125 Other: Date of Last Bowel Movement 02/24/18 # Bowel Movements 0 Weight On Admission 107.7 kg Result Diagrams: 02/24/18 02:35 02/24/18 02:35 Other Results: Laboratory Results WBC 11.4 th/mm3 (4.0-11.0) H 02/24/18 02:35 RBC 3.39 mil/mm3 (4.50-5.90) L 02/24/18 02:35 Hgb 10.1 gm/dL (13.0-17.0) L 02/24/18 02:35 Hct 30.8 % (39.0-51.0) L 02/24/18 02:35 MCV 90.8 fL (80.0-100.0) 02/24/18 02:35 MCH 29.8 pg (27.0-34.0) 02/24/18 02:35 MCHC 32.8 % (32.0-36.0) 02/24/18 02:35 RDW 14.5 % (11.6-17.2) 02/24/18 02:35 Plt Count 229 th/mm3 (150-450) 02/24/18 02:35 MPV 8.3 fL (7.0-11.0) 02/24/18 02:35 Prelim Diff (Auto) Bulb Packer 02/23/18 17:45 Neut % (Auto) 75.2 % (16.0-70.0) H 02/24/18 02:35 Lymph % (Auto) 13.5 % (9.0-44.0) 02/24/18 02:35 [place] % (Auto) 9.7 % (0.0-8.0) H 02/24/18 02:35 Eos % (Auto) 1.3 % (0.0-4.0) 02/24/18 02:35 Baso % (Auto) 0.3 % (0.0-2.0) 02/24/18 02:35 Neut # (Auto) 8.6 th/mm3 (1.8-7.7) H 02/24/18 02:35 Lymph # (Auto) 1.5 th/mm3 (1.0-4.8) 02/24/18 02:35 [place] # (Auto) 1.1 th/mm3 (0.0-0.9) H 02/24/18 02:35 Eos # (Auto) 0.2 th/mm3 (0.0-0.4) 02/24/18 02:35 Baso # (Auto) 0.0 th/mm3 (0.0-0.2) 02/24/18 02:35 WBC Differential . 02/24/18 02:35 Differential Comment Auto diff final 02/24/18 02:35 Sodium 136 meq/L (136-145) 02/24/18 02:35 Potassium 4.3 meq/L (3.5-5.1) 02/24/18 02:35 Chloride 99 meq/L (98-107) 02/24/18 02:35 Carbon Dioxide 27.8 meq/L (21.0-32.0) 02/24/18 02:35 Anion Gap 9 meq/L (5-15) 02/24/18 02:35 BUN 64 mg/dL (7-18) H 02/24/18 02:35 Creatinine 5.91 mg/dL (0.60-1.30) H 02/24/18 02:35 Estimated GFR 9 mL/min (>89) L 02/24/18 02:35 POC Glucose 90 mg/dl (68-110) 02/24/18 10:39 Random Glucose 100 mg/dL (74-106) 02/24/18 02:35 Lactic Acid 0.5 mmol/L (0.4-2.0) 02/24/18 02:35 Calcium 8.0 mg/dL (8.5-10.1) L 02/24/18 02:35 Phosphorus 9.2 mg/dL (2.5-4.9) H 02/24/18 02:35 Magnesium 2.4 mg/dL (1.5-2.5) 02/24/18 02:35 Total Bilirubin 0.4 mg/dL (0.2-1.0) 02/24/18 02:35 AST 21 U/L (15-37) 02/24/18 02:35 ALT 23 U/L (12-78) 02/24/18 02:35 Alkaline Phosphatase 71 U/L (45-117) 02/24/18 02:35 Total Creatine Kinase 561 U/L (39-308) H 02/23/18 17:45 CK-MB (CK-2) 1.4 ng/mL (0.5-3.6) 02/23/18 17:45 CK-MB (CK-2) % 0.2 % (0.0-4.0) 02/23/18 17:45 Troponin I Less than 0.02 ng/mL (0.02-0.05) L 02/23/18 17:45 B-Natriuretic Peptide 175 pg/mL (0-100) H 02/23/18 17:45 Total Protein 6.8 g/dL (6.4-8.2) 02/24/18 02:35 Albumin 2.5 g/dL (3.4-5.0) L 02/24/18 02:35 Urine Color Yellow (Yellw/Straw) 02/23/18 18:00 Urine Clarity Cloudy (Clear) H 02/23/18 18:00 Urine pH 5.0 (5.0-8.5) 02/23/18 18:00 Ur Specific [place] 1.023 (1.002-1.035) 02/23/18 18:00 Urine Protein 100 mg/dL (Neg-Trace) H 02/23/18 18:00 Urine Glucose (UA) Negative mg/dL (Negative) 02/23/18 18:00 Urine Ketones Trace mg/dL (Negative) H 02/23/18 18:00 Urine Occult Blood Moderate (Negative) H 02/23/18 18:00 Urine Nitrate Negative (Negative) 02/23/18 18:00 Urine Bilirubin Negative (Negative) 02/23/18 18:00 Urine Ictotest Negative (Negative) 02/23/18 18:00 Urine Urobilinogen Less than 2 mg/dL (Less than 2) 02/23/18 18:00 Ur Leukocyte Esterase Large (Negative) H 02/23/18 18:00 Urine RBC 91 /hpf (0-3) H 02/23/18 18:00 Urine WBC 50 /hpf (0-5) H 02/23/18 18:00 Ur Squamous Epith Cells 1 /hpf (0-5) 02/23/18 18:00 Calcium Oxalate Crystal Occasional /hpf (None) H 02/23/18 18:00 Hyaline Casts 24 /lpf (0-3) 02/23/18 18:00 Micro UA Comment Culture indicated 02/23/18 18:00 Ur Microscopic Review Not Reportable 02/23/18 18:00 Urine Culture Comments Culture indicated 02/23/18 18:00 Nasal Screen MRSA (PCR) Not detected (Negative) 02/23/18 21:30 Impressions Abdomen/Pelvis CT 02/23/18 00:00 CONCLUSION: 1. No acute findings within the abdomen and pelvis. Previous cholecystectomy. Mild renal cortical atrophy. Valdez catheter in the bladder. Small fat- containing umbilical hernia. 2. Dense consolidation right lung base with probable partially loculated right pleural effusion. Chest X-Ray 02/24/18 06:00 CONCLUSION: No significant change. The bilateral airspace disease and bilateral effusions remain right greater than left. Objective Remarks: GENERAL: A well-developed well-nourished elderly gentleman pleasantly conversant in no acute distress SKIN: Warm and dry. Ecchymotic bruising noted bilateral upper HEAD: Atraumatic. Normocephalic. EYES: Pupils equal and round. No scleral icterus. No injection or drainage. ENT: No nasal bleeding or discharge. Mucous membranes pink and moist. NECK: Trachea midline. No JVD. CARDIOVASCULAR: Normal rate, regular rhythm. RESPIRATORY: No accessory muscle use. Clear to auscultation. Breath sounds equal bilaterally. GASTROINTESTINAL: Abdomen soft, non-tender, nondistended. No guarding. MUSCULOSKELETAL: Extremities without clubbing, cyanosis, or edema. Right BKA NEUROLOGICAL: Awake and alert. RASS 0. No gross focal/sensory deficits. Follows commands in all 4 extremities. Assessment and Plan - Assessment and Plan Plan: 72-year-old male with: Hypotension which is probably multifactorial secondary to overdiuresis, antihypertensives BETSEY/CKD Hyperkalemia History of CHF COPD Leukocytosis Possible sepsis History of hypertension Plan: Neuro: Avoid sedatives and narcotics, follow neuro status. Continue gabapentin Cardiovascular: Status post IV fluids. Initiate dopamine as needed to maintain MAP greater than 65. Hold all antihypertensives. Continue antiplatelet therapy. Troponin negative. F/U BNP, 2D echo. Cardiology consult for further evaluation of CHF/cardiomyopathy Pulmonary: Supplemental O2, bronchodilators. GI/liver: Renal diet Renal/: Ordered CT abdomen pelvis to evaluate for obstruction. 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 Will consult nephrology for further evaluation of BETSEY/CKD. Hold lisinopril, antihypertensives, diuretics. Gentle hydration. ID: On oral Augmentin for recent diagnosis of pneumonia. Continue IV cefepime while awaiting culture results. Obtain medical records from [facility] regarding recent treatment Heme: Follow CBC Endocrine: Watch for hyperglycemia, SSI for glycemic control if needed Prophylaxis: Pepcid/SCDs. Subcu heparin Level 2 follow up Code Status: Full Discussed Condition With: Patient, son, and FOOD BEVERAGE SUPERVISOR at bedside
--- NOTE | 2018-02-24 14:05 | US ---
EXAM DATE: 02/24/2018 1:55 PM EST AGE/SEX: 72 years / Male INDICATIONS: Increased BUN/Creatnine. CLINICAL DATA: This is the patient's initial encounter. Patient reports that signs and symptoms have been present for 1 day and indicates a pain score of 0/10. MEDICAL/SURGICAL HISTORY: Chronic obstructive pulmonary disease. Hypertension. Chronic kidney disease. None. COMPARISON: No prior exams available for comparison. MEASUREMENTS: Right Kidney:__8.2 x 4.6 x 5.3 cm Left Kidney:__10.1 x 4.7 x 5.4 cm FINDINGS: Right Kidney: Increased echogenicity. No mass or hydronephrosis. Left Kidney: Increased echogenicity. No mass or hydronephrosis. Bladder: Valdez catheter is present. Bladder decompressed. Other: None. CONCLUSION: 1. Negative renal sonogram. Electronically signed by: Alexandria Womack MD Board Certified Radiologist 02/24/2018 2:04 PM EST
[2018-02-24] MEDS ORDERED: Dextrose 50% in Water 50 ML Vial IV.PUSH PRN (14:37)
--- NOTE | 2018-02-24 15:14 | ECHRPT ---
Indication: Cardiomyopathy CONCLUSIONS Normal left ventricular size. Mildly dilated right heart Mild concentric left ventricular hypertrophy. The left ventricular systolic function is normal with an estimated ejection fraction in the range of 55-60%. Trace mitral valve regurgitation. There is moderate tricuspid regurgitation. The estimated pulmonary arterial pressure is 71 mmHg. Moderate to severe pulmonary HTN Mild pulmonary valve regurgitation. BP: 106 / 57 HR: Rhythm: MEASUREMENTS (Male / Female) Normal Values Technical Quality:Technically difficult study 2D ECHO LV Diastolic Diameter PLAX 2.8 cm 4.2 - 5.9 / 3.9 - 5.3 cm LV Systolic Diameter PLAX 2.1 cm IVS Diastolic Thickness 1.2 cm 0.6 - 1.0 / 0.6 - 0.9 cm LVPW Diastolic Thickness 1.2 cm 0.6 - 1.0 / 0.6 - 0.9 cm LV Relative Wall Thickness 0.9 LVOT Diameter 2.2 cm Aortic Root Diameter 3.2 cm LA Systolic Diameter LX 3.3 cm 3.0 - 4.0 / 2.7 - 3.8 cm DOPPLER AV Peak Velocity 153.0 cm/s AV Peak Gradient 9.4 mmHg LVOT Peak Velocity 107.0 cm/s LVOT Peak Gradient 4.6 mmHg AV Area Cont Eq pk 2.7 cm Mitral E Point Velocity 99.7 cm/s Mitral A Point Velocity 79.0 cm/s Mitral E to A Ratio 1.3 LV E' Lateral Velocity 13.4 cm/s Mitral E to LV E' Lateral Ratio 7.4 LV E' Septal Velocity 5.9 cm/s Mitral E to LV E' Septal Ratio 17.0 TR Peak Velocity 391.0 cm/s TR Peak Gradient 61.2 mmHg Right Atrial Pressure 10.0 mmHg Pulmonary Artery Systolic Pressu 71.2 mmHg Right Ventricular Systolic Press 71.2 mmHg PV Peak Velocity 106.0 cm/s PV Peak Gradient 4.5 mmHg FINDINGS LEFT VENTRICLE Normal left ventricular size. Mild concentric left ventricular hypertrophy. The left ventricular systolic function is normal with an estimated ejection fraction in the range of 55-60%. RIGHT VENTRICLE The right ventricle is mildly dilated. LEFT ATRIUM The left atrial size is normal. RIGHT ATRIUM The right atrial size is mildly dilated. ATRIAL SEPTUM Normal atrial septal thickness without atrial level shunting by limited color doppler interrogation. AORTA The aortic root and proximal ascending aorta are normal in size on limited imaging. MITRAL VALVE Trace mitral valve regurgitation. AORTIC VALVE Trileaflet aortic valve. TRICUSPID VALVE There is moderate tricuspid regurgitation. The estimated pulmonary arterial pressure is 71 mmHg. There is estimated moderate to severe pulmonary hypertension present ( > 70 mmHg). PULMONARY VALVE Mild pulmonary valve regurgitation. VESSELS The inferior vena cava is normal in size. PERICARDIUM No pericardial effusion. Elliott Reyna MD (Electronically Signed) Final Date:24 February 2018 15:13
[2018-02-24] MEDS: Insulin NovoLOG Aspart Correctional Sugar Inj SQ SCH ×3 (16:26→21:32)
[2018-02-24] MEDS ORDERED: Sodium Chlor 0.9% Inj 250 ML IV.SIG ONE (17:00)
--- NOTE | 2018-02-24 17:03 | MB ---
cc: Ignacio Ledemsa MD DATE: 02/24/2018 LEAD MINER BLASTING: Dionte Garcia MD ATTENDING PROVIDER: Chay Treadwell MD PRIMARY CARE PHYSICIAN: Shahrzad Nevarez MD REASON FOR CONSULTATION: I was asked to evaluate the patient with bradycardia and hypotension. Andrea Cotton is a very pleasant 72-year-old gentleman with a past medical history significant for diabetes mellitus, hypertension, chronic renal disease and congestive heart failure attributed to diastolic dysfunction. He was recently discharged from [facility] for pneumonia and congestive heart failure. He was discharged to a [place] [facility]. He is now admitted for hypotension and bradycardia. His heart rate was noted to be in the 50s and systolic blood pressure 60s mmHg. Apparently, he was on 2 beta blockers, atenolol and propranolol in addition to being on lisinopril. He is a vague historian. He reports no recent episodes of chest pain suggestive of angina. He has baseline shortness of breath that has not significantly increased. He is interviewed and examined in the intensive care unit. Presently, he offers no complaints. MEDICATIONS: Reviewed and noted in MAR. PAST MEDICAL HISTORY: As above. Additionally, he has a history of chronic renal insufficiency, acute renal failure, COPD, hypertension. PAST SURGICAL HISTORY: Status post right BKA. SOCIAL HISTORY: He has never smoked. He does not drink alcohol. FAMILY HISTORY: No history of substance abuse. REVIEW OF SYSTEMS: As above, 12-point review of systems reviewed and noted. He denies recent fever, chills, cough and sputum production. No recent gastrointestinal or genitourinary symptoms. PHYSICAL EXAMINATION: VITAL SIGNS: Temperature 97.8, pulse 58, blood pressure 103/57, O2 saturation 94%. GENERAL: He is morbidly obese. HEENT: Anicteric. No acute distress. PERRLA. No xanthelasmas. Thick neck. No carotid bruit. LUNGS: Few bibasilar crackles. HEART: Regular rate and rhythm. Distant, soft. 1-2/6 systolic murmur at left lower sternal border. ABDOMEN: Soft and nontender. EXTREMITIES: Status post right BKA. Left lower extremity with 2+ pitting edema. LABORATORY DATA: WBC 11.4, hemoglobin is 10.1, hematocrit is 30.8, platelet count 229,000. Sodium 136, potassium 4.3, BUN 64, creatinine 5.91. Lactic acid 0.5, calcium 8.0. CPK 561. Troponin less than 0.02. ECHOCARDIOGRAM: Normal left ventricle size with mild concentric hypertrophy, normal systolic function, ejection fraction 55%-60%. Mild right ventricle dilatation. Moderate tricuspid valve regurgitation, pulmonary artery systolic pressure 71 mmHg. Mild pulmonic valve regurgitation. IVC is normal in size. IMPRESSION: 1. Hypotension, likely due to volume depletion and beta blockers. 2. Bradycardia secondary to being on 2 beta blockers. 3. Normal left ventricular systolic function. 4. Pulmonary hypertension. Pulmonary artery systolic pressure greater than 70 mmHg. 5. History of hypertension. 6. Acute on chronic renal insufficiency. 7. Diabetes mellitus. 8. Recent pneumonia. PLAN: 1. Continue IV fluid resuscitation. 2. Okay to hold dopamine for now, to keep heart rate greater than 50 BPM and MAP greater than 65. 3. Beta blockers and CHAPIN inhibitors have been discontinued. 4. Lovenox subcutaneously, high risk for DVT/PE. 5. May need right heart catheterization to evaluate volume status to evaluate for volume depletion versus sepsis syndrome for persistent hypotension. MD NICKY MosesV/ct , 04:21 PM , 04:33 PM
--- NOTE | 2018-02-24 17:32 | MB ---
cc: Dragan Julio MD DATE: 02/24/2018 REQUESTING PHYSICIAN: Chay Treadwell MD REASON FOR CONSULTATION: Shortness of breath and COPD. HISTORY OF PRESENT ILLNESS: Mr. Cotton is a 72-year-old white male with hypertension, chronic lung disease, CHF, and COPD, is oxygen dependent, uses oxygen 3 liters nasal cannula. The patient lives in the [facility] for the last 3 years or so is not able to ambulate because of his right BKA. He was using prosthetic before, he is not using it. The patient was sent to the ER with episode of hypotension and worsening of his renal function. The patient was evaluated in the emergency room. His creatinine was high, potassium was high. He was given IV fluid bolus and is admitted to the intensive care unit. He is currently weaned down to 3 liters nasal cannula. Has mild shortness of breath with no wheezing. No fever, chills. No night sweats. PAST MEDICAL HISTORY: Significant history of hypertension, chronic kidney disease, diabetes mellitus, COPD, is oxygen dependent, history of right below-knee amputation. MEDICATIONS: He is currently takin. Albuterol nebulizer treatment. 2. Atrovent nebulizer treatment. 3. Dulcolax. 4. Phosphorus. 5. Cefepime 1 gram q.12 hours. 2. Heparin 5000 q.12 hours. 3. Insulin medication. ALLERGIES: ALLERGIC TO CODEINE. SOCIAL HISTORY: He has a history of smoking, which he quit 28 years ago. He used to drink before. He was injured in [place] and he has right BKA. He is disabled. FAMILY HISTORY: He is a , [facility]. He has 3 children. REVIEW OF SYSTEMS: He does not walk because of his BKA. No seizure, stroke, or epilepsy. PHYSICAL EXAMINATION: GENERAL: Well-built, well-nourished male, mildly short of breath, not in any acute distress. VITAL SIGNS: His blood pressure 95/52, heart rate 58, respirations 20, temperature 98. HEENT: Pupils are equal and reactive to light. Oral mucosa and nasal mucosa normal. NECK: Supple. JVD not raised. CHEST: With decreased breath sounds at the bases. HEART: S1, S2 normal. ABDOMEN: Soft, nondistended. Bowel sounds are present. EXTREMITIES: Right BKA. IMPRESSION: 1. Chronic obstructive pulmonary disease with mild exacerbation. 2. Acute on chronic renal failure, possible over diuresis. 3. Hyperkalemia, improved. 4. Right BKA. 5. Pleural effusion. PLAN: I discussed with the patient he has weaned down to 3 liter nasal cannula supplement to keep saturation greater than 90% aerosol treatment. He is getting gentle hydration, monitor his renal function. Monitor pleural effusion. If effusion increases, then he will need thoracentesis. Further treatment depending on the course in the hospital. Thank you Dr. Chay Treadwell for this consult. Dragan Julio MD ADA/ct/rr , 03:07 PM , 03:17 PM [email or web address]
--- NOTE | 2018-02-24 19:51 | ECG ---
Date Performed: 02/23/2018 Time Performed: 17:33:15 PTAGE: 72 years EKG: SINUS BRADYCARDIA Compared to previous tracing, HR IS SLOWER, OTHERWISE NO SIGNIFICANT HUMPHREY GE BORDERLINE ECG PREVIOUS TRACING : 03/18/2014 14.09 DOCTOR: Juvenal Trent Interpretating Date/Time 02/24/2018 19:51:17
[2018-02-25] MEDS: Insulin NovoLOG Aspart Correctional Sugar Inj SQ SCH ×5 (03:07→22:26)
[2018-02-25] MEDS: Chlorhexidine Gluconate 2% 1 Pack (2 Cloths) TOPICAL SCH (03:50)
[2018-02-25 05:08] LABS: Baso % (Auto) 0.3 % (0.0-2.0); Eos # (Auto) 0.2 th/mm3 (0.0-0.4); Eos % (Auto) 3.1 % (0.0-4.0); Hematocrit 30.2 % (39.0-51.0); Hemoglobin 9.9 gm/dL (13.0-17.0); Lymph # (Auto) 1.2 th/mm3 (1.0-4.8); Lymph % (Auto) 16.1 % (9.0-44.0); Mean Corpuscular HGB Conc 32.7 % (32.0-36.0); Mean Corpuscular Hemoglobin 30.1 pg (27.0-34.0); Mean Platelet Volume 8.3 fL (7.0-11.0); Mono # (Auto) 0.9 th/mm3 (0.0-0.9); Mono % (Auto) 11.2 % (0.0-8.0); Neut # (Auto) 5.4 th/mm3 (1.8-7.7); Neut % (Auto) 69.3 % (16.0-70.0); Platelet Count 222 th/mm3 (150-450); Red Blood Count 3.28 mil/mm3 (4.50-5.90); Red Cell Distribution Width 14.6 % (11.6-17.2); White Blood Count 7.8 th/mm3 (4.0-11.0)
[2018-02-25 05:42] LABS: Calcium 7.6 mg/dL (8.5-10.1); Carbon Dioxide 25.3 meq/L (21.0-32.0); Magnesium 2.5 mg/dL (1.5-2.5); Phosphorus 7.9 mg/dL (2.5-4.9); Potassium 4.2 meq/L (3.5-5.1)
[2018-02-25] MEDS: Heparin - SQ 10,000 UNITS/ML Vial SQ SCH ×2 (08:38→22:16)
[2018-02-25] MEDS: Senna/Docusate Sodium 8.6/50 MG Tablet PO SCH ×2 (08:39→22:17)
[2018-02-25] MEDS: Sod Chloride 0.9% Inj 1,000 ML IV.CONT SCH ×2 (10:23→22:23)
--- NOTE | 2018-02-25 11:03 | P.PNIM ---
Subjective Interval history: 72-year-old male admitted for hypotension and secondary acute kidney injury. His blood pressures have remained stable over the last 24 hours. He has no new complaints, eating breakfast and sitting in bed comfortably. Physical Exam Vital signs: Last Vital Signs Temp 97.9 F 02/25/18 08:00 Pulse 60 02/25/18 10:00 Resp 15 02/25/18 10:00 BP 132/60 02/25/18 10:00 Pulse Ox 95 02/25/18 10:00 Intake & Output 02/23/18 02/24/18 02/25/18 02/26/18 06:59 06:59 06:59 06:59 Intake Total 2100 / 2100 3350 / 3350 1200 / 1200 Output Total 125 / 125 700 / 700 Balance 1974 2650 / 2650 1200 / 1200 Weight 108.9 kg 108.9 kg Narrative: GENERAL: AAOx3, no acute distress SKIN: Warm and dry. No rashes HEAD: Atruamtic, normocephalic. EYES: No scleral icterus. No injection or drainage. ENT: Moist mucous membranes, patent nares, no erythema of oropharynx. NECK: Supple, trachea midline. No JVD or lymphadenopathy. Normal thyroid. CARDIOVASCULAR: Regular rate and rhythm. No murmurs, gallops, or rubs. RESPIRATORY: Breath sounds clear equal bilaterally. No crackles or wheezes. No accessory muscle use. GASTROINTESTINAL: Abdomen soft, non-tender, nondistended, normal active bowel sounds MUSCULOSKELETAL: BKA right leg, left leg is weak at baseline, trace edema left ankle NEURO: CN II-XII grossly intact, no focal deficits, no slurring of speech Urinary Catheter Management Indwelling Urethral Catheter: Cath placed during this visit: no Results Labs CBC & Chem 7: 02/25/18 04:00 02/25/18 04:00 Labs: Microbiology 02/23/18 18:00 Clean Catch Urine Urine Culture - Preliminary Yeast species 02/23/18 17:50 Blood - Peripheral Aerobic Blood Culture - Preliminary No growth in 1 day 02/23/18 17:50 Blood - Peripheral Anaerobic Blood Culture - Preliminary No growth in 1 day 02/23/18 17:45 Blood - Peripheral Aerobic Blood Culture - Preliminary No growth in 1 day 02/23/18 17:45 Blood - Peripheral Anaerobic Blood Culture - Preliminary No growth in 1 day Imaging Imaging: Impressions Abdomen/Bladder Ultrasound 02/24/18 11:56 CONCLUSION: 1. Negative renal sonogram. Assessment and Plan Plan 72-year-old male admitted for hypotension and acute kidney injury Hypotension Likely secondary to overdiuresis, dehydration, antihypertensives He was rehydrated and his pressures have remained stable for the last 24 hours Continue with gentle IV fluids Patient is stable for transfer to [facility] Acute kidney injury Patient has chronic kidney disease, creatinine last September was 1.82 Markedly elevated on admission to 6.3 secondary to dehydration, hypoperfusion Creatinines are improving daily, down to 4.67 today Continue gentle IV fluids, continue daily BMP to monitor creatinine Leukocytosis, sepsis risk Patient was risky for sepsis due to hypotension, though this was likely more of a picture of dehydration Continue empiric coverage with cefepime Follow blood culture results h/o COPD Stable on this admission PRN medications in place, nebulizer, supplemental oxygen DVT Prophylaxis Heparin Progress Note: Quality VTE Deep Vein Thrombosis/Pulmonary Embolism Present on Admission: No
--- NOTE | 2018-02-25 11:22 | P.PNNP ---
Subjective Interval history: Feeling better today Physical Exam Vital signs: Vital Signs 02/24/18 11:30 02/24/18 12:00 02/24/18 12:30 Temperature 97.5 F L Pulse Rate 51 L 51 L 52 L Respiratory Rate 11 L 11 L 15 Blood Pressure 101/57 L 95/55 L 112/56 L Pulse Oximetry 97 97 98 02/24/18 13:00 02/24/18 13:30 02/24/18 14:00 Temperature Pulse Rate 53 L 60 58 L Respiratory Rate 31 H 38 H 16 Blood Pressure 104/59 L 106/57 L 95/52 L Pulse Oximetry 96 95 93 L 02/24/18 14:31 02/24/18 14:50 02/24/18 15:00 Temperature Pulse Rate 61 58 L 57 L Respiratory Rate 24 20 20 Blood Pressure 74/57 L 82/51 L Pulse Oximetry 83 L 100 02/24/18 16:00 02/24/18 17:00 02/24/18 18:00 Temperature 97.8 F Pulse Rate 58 L 52 L 49 L Respiratory Rate 16 9 L 10 L Blood Pressure 103/57 L 89/53 L 86/48 L Pulse Oximetry 94 L 97 97 02/24/18 19:00 02/24/18 19:01 02/24/18 20:00 Temperature 98.2 F Pulse Rate 57 L 58 L 55 L Respiratory Rate 29 H 22 14 Blood Pressure 112/57 L 121/56 L Pulse Oximetry 90 L 87 L 96 02/24/18 20:14 02/24/18 21:00 02/24/18 22:00 Temperature Pulse Rate 56 L 59 L 61 Respiratory Rate 16 54 H 21 Blood Pressure 103/54 L Pulse Oximetry 96 98 93 L 02/24/18 22:01 02/24/18 23:00 02/24/18 23:10 Temperature Pulse Rate 62 58 L 58 L Respiratory Rate 28 H 18 18 Blood Pressure 103/54 L 171/106 H Pulse Oximetry 88 L 96 95 02/24/18 23:38 02/24/18 23:40 02/24/18 23:43 Temperature Pulse Rate 52 L 51 L 53 L Respiratory Rate 9 L 9 L 8 L Blood Pressure 82/46 L 84/48 L 80/42 L Pulse Oximetry 99 99 98 02/24/18 23:44 02/25/18 00:00 02/25/18 00:01 Temperature 97.8 F Pulse Rate 53 L 58 L 58 L Respiratory Rate 8 L 20 12 Blood Pressure 82/46 L 104/56 L Pulse Oximetry 99 96 96 02/25/18 01:00 02/25/18 02:00 02/25/18 02:08 Temperature Pulse Rate 56 L 56 L 56 L Respiratory Rate 9 L 10 L 8 L Blood Pressure 109/57 L Pulse Oximetry 88 L 93 L 93 L 02/25/18 03:00 02/25/18 03:56 02/25/18 04:00 Temperature 97.1 F L Pulse Rate 56 L 54 L 60 Respiratory Rate 10 L 18 19 Blood Pressure 126/59 L 130/62 Pulse Oximetry 97 100 02/25/18 05:00 02/25/18 06:00 02/25/18 07:00 Temperature Pulse Rate 56 L 58 L 56 L Respiratory Rate 24 13 20 Blood Pressure 118/58 L 111/66 117/58 L Pulse Oximetry 97 97 99 02/25/18 08:00 02/25/18 08:29 02/25/18 09:00 Temperature 97.9 F Pulse Rate 56 L 56 L 65 Respiratory Rate 11 L 20 22 Blood Pressure 125/59 L 144/65 H Pulse Oximetry 97 95 91 L 02/25/18 10:00 Temperature Pulse Rate 60 Respiratory Rate 15 Blood Pressure 132/60 Pulse Oximetry 95 Intake & Output 02/24/18 02/25/18 02/25/18 18:59 06:59 18:59 Intake Total 1850 / 1850 1500 / 1500 1200 / 1200 Output Total 350 / 350 350 / 350 Balance 1500 / 1500 1150 / 1150 1200 / 1200 Weight 108.9 kg Intake: IV 1350 / 1350 1000 / 1000 1200 / 1200 NS Inj 1,000 ML @ 84 mls/hr IV. 1000 / 1000 1000 / 1000 1000 / 1000 CONT .[id number] [facility] Rx#:[id number] Maxipime Inj 1,000 MG In NS Inj 100 / 100 200 / 200 100 ML @ 200 mls/hr IV.SIG Q12H [facility] Rx#:[id number] NS Inj 250 ML @ As Directed IV. 250 / 250 SIG NOW ONE Rx#:[id number] Oral 500 / 500 500 / 500 Output: Urine Amount (Catheter) 350 / 350 350 / 350 Indwelling Urethral Catheter 350 / 350 350 / 350 Other: Date of Last Bowel Movement 02/24/18 02/24/18 02/24/18 # Bowel Movements 0 # Incontinent Bowel Movements 1 1 - Constitutional no acute distress - Routine HEENT Exam Head: Present: normocephalic Eye: Present: EOMI ENT: Present: mucous membranes moist - Routine Neck Exam Present: supple - Routine Respiratory Exam Present: decreased breath sounds - Routine Cardiovascular Exam Present: RRR - Routine Abdominal Exam Present: soft - Routine Skin Exam Present: intact - Routine Neurological Exam Present: alert, oriented X3 - Detailed Neurological Exam: Coma Scale Eye Opening: Spontaneous - Urinary Catheter Management Indwelling Urethral Catheter Cath placed during this visit: no Assessment and Plan - Assessment (1) [id number] kidney injury Code(s): N17.9 - Acute kidney failure, unspecified; N18.9 - Chronic kidney disease, unspecified Status: Acute Qualifiers: Acute renal failure type: unspecified Plan: BETSEY secondary to volume depletion/ over-diuresis Creatinine 1.8 in September of 2017 Creatinine 6.1 -> 5.9 -> 4.6 today On NS at 84cc/hour 700cc UOP/24 hours. Continue IVFs for now, renal function improving. Renal ultrasound with increased echogenicity, suggestive of CKD Apparently has seen a information systems operator as an outpatient before for CKD, however patient is uncertain as to who he saw. (2) Hyperkalemia Code(s): E87.5 - Hyperkalemia Status: Acute Plan: 6.1 on admisssion. Improved, continue to monitor (3) CHF (congestive heart failure) Code(s): I50.9 - Heart failure, unspecified Status: Acute Plan: On IVFs now, continue to monitor. (4) Diabetes Code(s): E11.9 - Type 2 diabetes mellitus without complications Status: Acute Plan: Continue to monitor glucose
--- NOTE | 2018-02-25 17:08 | P.PNCA ---
Subjective Interval history: Feels better. No complaints of chest pain or sob Heart rate improved 50-60s bpm Renal function also improved Medications and Allergies Active Medications: Active Medications Al Hydroxide/Mg Hydroxide (Milk Of Magnesia Liq) 30 ml PO Q12H PRN PRN Reason: Mild Constipation Albuterol (Albuterol Neb (Prn)) 2.5 mg NEB Q2HR NEB PRN PRN Reason: SHORTNESS OF BREATH/WHEEZING Albuterol (Duoneb Neb ([facility])) 1 ampul NEB Q6HR NEB [facility] Last Admin: 02/25/18 15:55 Dose: 1 ampul Bisacodyl (Dulcolax Supp) 10 mg RECTAL DAILY PRN PRN Reason: SEVERE CONSITIPATION Chlorhexidine Gluconate (Chlorhexidine 2% Cloth) 3 pack TOPICAL DAILY@0400 [facility] Stop: 03/01/18 03:59 Last Admin: 02/25/18 03:50 Dose: 3 pack Chlorhexidine Gluconate (Chlorhexidine 2% Cloth) 3 pack TOPICAL DAILY@0400 PRN PRN Reason: Extra cloth needed Stop: 03/01/18 03:59 Dextrose (D50w Vial) 50 ml IV.PUSH UNSCH PRN PRN Reason: PER HYPOGLYCEMIA PROTOCOL Glucagon (Glucagon Inj) 1 mg OTHER PRN PRN PRN Reason: for Hypoglycemia Protocol Heparin Sodium (Porcine) (Heparin Inj) 5,000 units SQ Q12H [facility] Last Admin: 02/25/18 08:38 Dose: 5,000 units Sodium Chloride (Ns Inj) 1,000 mls @ 84 mls/hr IV.CONT .[id number] [facility] Last Admin: 02/25/18 10:23 Dose: 84 mls/hr Cefepime HCl 1,000 mg/ Sodium (Chloride) 100 mls @ 200 mls/hr IV.SIG Q12H [facility] Last Infusion: 02/25/18 09:36 Dose: Infused Insulin Aspart (Novolog Insulin Correctional Sugar Inj) 0 unit SQ ACHS AND 3AM [facility]; Protocol Last Admin: 02/25/18 11:53 Dose: 4 unit Lactulose (Lactulose Liq) 30 ml PO DAILY PRN PRN Reason: SEVERE CONSITIPATION Ondansetron HCl (Zofran Inj) 4 mg IV.PUSH Q6H PRN PRN Reason: NAUSEA OR VOMITING Senna/Docusate Sodium (Jo-Colace) 1 tab PO BID [facility] Last Admin: 02/25/18 08:39 Dose: Not Given Sennosides (Senokot) 17.2 mg PO Q12H PRN PRN Reason: Moderate Constipation Sodium Chloride (Ns Flush) 2 ml IV.FLUSH BID [facility] Last Admin: 02/25/18 08:39 Dose: 2 ml Sodium Chloride (Ns Flush) 2 ml IV.FLUSH PRN PRN PRN Reason: FLUSH AFTER USING IV ACCESS Last Admin: 02/25/18 08:39 Dose: 2 ml Allergies Allergy/AdvReac Type Severity Reaction Status Date / Time codeine Allergy Mild Constipatio Verified 02/23/18 17:36 n Home Medications Medication Instructions Recorded Confirmed Type amoxicillin-pot clavulanate 1 tab PO Q12H 02/23/18 02/23/18 History [Augmentin] atenolol [Tenormin] 50 mg PO DAILY 02/23/18 02/23/18 History budesonide-formoterol [Symbicort] 2 puff INHALATION BID 02/23/18 02/23/18 History clopidogrel [Plavix] 75 mg PO DAILY 02/23/18 02/23/18 History cyanocobalamin (vitamin B-12) 1,000 mcg IM QMONTH 02/23/18 02/23/18 History dexamethasone sodium phosphate 4 mg IV QWEEK 02/23/18 02/23/18 History doxazosin 2 mg PO DAILY 02/23/18 02/23/18 History fexofenadine [Shiloh Allergy] 60 mg PO BID 02/23/18 02/23/18 History furosemide [Lasix] 40 mg PO BID 02/23/18 02/23/18 History gabapentin 300 mg PO TID 02/23/18 02/23/18 History glipizide 5 mg PO DAILY 02/23/18 02/23/18 History guaifenesin [Mucinex] 600 mg PO Q12H 02/23/18 02/23/18 History ipratropium-albuterol 3 ml INHALATION QID 02/23/18 02/23/18 History lisinopril 10 mg PO DAILY 02/23/18 02/23/18 History melatonin 3 mg PO HS PRN 02/23/18 02/23/18 History montelukast 10 mg PO QPM 02/23/18 02/23/18 History oxycodone-acetaminophen [Percocet] 1 tab PO Q4H PRN 02/23/18 02/23/18 History pantoprazole [Protonix] 40 mg PO DAILY 02/23/18 02/23/18 History potassium chloride 20 meq PO BID 02/23/18 02/23/18 History propranolol 40 mg PO BID 02/23/18 02/23/18 History ropinirole [Requip] 2 mg PO HS 02/23/18 02/23/18 History sertraline [Zoloft] 50 mg PO DAILY 02/23/18 02/23/18 History trazodone 150 mg PO DAILY 02/23/18 02/23/18 History Physical Exam Vital signs: Vital Signs 02/24/18 18:00 02/24/18 19:00 02/24/18 19:01 Temperature Pulse Rate 49 L 57 L 58 L Respiratory Rate 10 L 29 H 22 Blood Pressure 86/48 L 112/57 L Pulse Oximetry 97 90 L 87 L 02/24/18 20:00 02/24/18 20:14 02/24/18 21:00 Temperature 98.2 F Pulse Rate 55 L 56 L 59 L Respiratory Rate 14 16 54 H Blood Pressure 121/56 L Pulse Oximetry 96 96 98 02/24/18 22:00 02/24/18 22:01 02/24/18 23:00 Temperature Pulse Rate 61 62 58 L Respiratory Rate 21 28 H 18 Blood Pressure 103/54 L 103/54 L Pulse Oximetry 93 L 88 L 96 02/24/18 23:10 02/24/18 23:38 02/24/18 23:40 Temperature Pulse Rate 58 L 52 L 51 L Respiratory Rate 18 9 L 9 L Blood Pressure 171/106 H 82/46 L 84/48 L Pulse Oximetry 95 99 99 02/24/18 23:43 02/24/18 23:44 02/25/18 00:00 Temperature Pulse Rate 53 L 53 L 58 L Respiratory Rate 8 L 8 L 20 Blood Pressure 80/42 L 82/46 L Pulse Oximetry 98 99 96 02/25/18 00:01 02/25/18 01:00 02/25/18 02:00 Temperature 97.8 F Pulse Rate 58 L 56 L 56 L Respiratory Rate 12 9 L 10 L Blood Pressure 104/56 L Pulse Oximetry 96 88 L 93 L 02/25/18 02:08 02/25/18 03:00 02/25/18 03:56 Temperature Pulse Rate 56 L 56 L 54 L Respiratory Rate 8 L 10 L 18 Blood Pressure 109/57 L 126/59 L Pulse Oximetry 93 L 97 02/25/18 04:00 02/25/18 05:00 02/25/18 06:00 Temperature 97.1 F L Pulse Rate 60 56 L 58 L Respiratory Rate 19 24 13 Blood Pressure 130/62 118/58 L 111/66 Pulse Oximetry 100 97 97 02/25/18 07:00 02/25/18 08:00 02/25/18 08:29 Temperature 97.9 F Pulse Rate 56 L 56 L 56 L Respiratory Rate 20 11 L 20 Blood Pressure 117/58 L 125/59 L Pulse Oximetry 99 97 95 02/25/18 09:00 02/25/18 10:00 02/25/18 11:00 Temperature Pulse Rate 65 60 63 Respiratory Rate 22 15 16 Blood Pressure 144/65 H 132/60 134/62 Pulse Oximetry 91 L 95 87 L 02/25/18 12:00 02/25/18 13:00 02/25/18 14:00 Temperature 98.0 F Pulse Rate 71 64 55 L Respiratory Rate 28 H 12 9 L Blood Pressure 109/56 L 121/58 L 108/58 L Pulse Oximetry 92 L 93 L 96 02/25/18 15:00 02/25/18 15:55 02/25/18 16:00 Temperature 98.1 F Pulse Rate 58 L 63 66 Respiratory Rate 10 L 20 25 H Blood Pressure 119/59 L 126/59 L Pulse Oximetry 93 L 100 Intake & Output 02/24/18 02/25/18 02/25/18 18:59 06:59 18:59 Intake Total 1850 / 1850 1500 / 1500 1200 / 1200 Output Total 350 / 350 350 / 350 Balance 1500 / 1500 1150 / 1150 1200 / 1200 Weight 108.9 kg Intake: IV 1350 / 1350 1000 / 1000 1200 / 1200 NS Inj 1,000 ML @ 84 mls/hr IV. 1000 / 1000 1000 / 1000 1000 / 1000 CONT .[id number] [facility] Rx#:[id number] Maxipime Inj 1,000 MG In NS Inj 100 / 100 200 / 200 100 ML @ 200 mls/hr IV.SIG Q12H [facility] Rx#:[id number] NS Inj 250 ML @ As Directed IV. 250 / 250 SIG NOW ONE Rx#:[id number] Oral 500 / 500 500 / 500 Output: Urine Amount (Catheter) 350 / 350 350 / 350 Indwelling Urethral Catheter 350 / 350 350 / 350 Other: Date of Last Bowel Movement 02/24/18 02/24/18 02/24/18 # Bowel Movements 0 # Incontinent Bowel Movements 1 1 - Constitutional no acute distress - Routine HEENT Exam Head: Present: normocephalic Eye: Present: EOMI, PERRL ENT: Present: mucous membranes moist - Routine Neck Exam Present: supple - Routine Respiratory Exam Present: CTA bilaterally - Routine Cardiovascular Exam Present: RRR, murmur - Routine Abdominal Exam Present: soft, normoactive bowel sounds - Routine Extremities Exam Present: normal capillary refill - Routine Skin Exam Present: dry - Routine Neurological Exam Present: alert, oriented X3 - Detailed Neurological Exam: Coma Scale Eye Opening: Spontaneous Verbal Response: Oriented - Routine Psychiatric Exam Present: normal affect - Urinary Catheter Management Indwelling Urethral Catheter Cath placed during this visit: no Results 02/25/18 04:00 02/25/18 04:00 Cardiac Enzymes 02/23/18 02/23/18 02/23/18 Range/Units 17:45 17:45 17:45 AST 43 H (15-37) U/L CK-MB (CK-2) 1.4 (0.5-3.6) ng/mL Troponin I Cancelled Less than 0.02 L B-Natriuretic Peptide 175 H (0-100) pg/mL 02/24/18 02/25/18 Range/Units 02:35 04:00 AST 21 (15-37) U/L CK-MB (CK-2) (0.5-3.6) ng/mL Troponin I B-Natriuretic Peptide 337 H (0-100) pg/mL Coagulation 02/23/18 02/25/18 Range/Units 17:45 04:00 B-Natriuretic Peptide 175 H 337 H (0-100) pg/mL CBC 02/23/18 02/24/18 02/25/18 Range/Units 17:45 02:35 04:00 WBC 15.0 H 11.4 H 7.8 (4.0-11.0) th/mm3 RBC 3.57 L 3.39 L 3.28 L (4.50-5.90) mil/mm3 Hgb 10.7 L 10.1 L 9.9 L (13.0-17.0) gm/dL Hct 32.7 L 30.8 L 30.2 L (39.0-51.0) % Plt Count 286 229 222 (150-450) th/mm3 Neut # (Auto) 11.9 H 8.6 H 5.4 (1.8-7.7) th/mm3 Lymph # (Auto) 1.8 1.5 1.2 (1.0-4.8) th/mm3 [place] # (Auto) 1.1 H 1.1 H 0.9 (0.0-0.9) th/mm3 Eos # (Auto) 0.1 0.2 0.2 (0.0-0.4) th/mm3 Baso # (Auto) 0.1 0.0 0.0 (0.0-0.2) th/mm3 Comprehensive Metabolic Panel 02/23/18 02/23/18 02/24/18 Range/Units 17:45 22:54 02:35 Sodium 133 L 134 L 136 (136-145) meq/L Potassium 5.6 H 4.3 D 4.3 (3.5-5.1) meq/L Chloride 96 L 98 99 (98-107) meq/L Carbon Dioxide 26.8 26.9 27.8 (21.0-32.0) meq/L BUN 61 H 60 H 64 H (7-18) mg/dL Creatinine 6.18 H 5.92 H 5.91 H (0.60-1.30) mg/dL Calcium 7.9 L 8.5 8.0 L (8.5-10.1) mg/dL AST 43 H 21 (15-37) U/L ALT 27 23 (12-78) U/L Alkaline Phosphatase 76 71 (45-117) U/L Total Protein 7.3 6.8 (6.4-8.2) g/dL Albumin 2.7 L 2.5 L (3.4-5.0) g/dL 02/25/18 Range/Units 04:00 Sodium 138 (136-145) meq/L Potassium 4.2 (3.5-5.1) meq/L Chloride 104 (98-107) meq/L Carbon Dioxide 25.3 (21.0-32.0) meq/L BUN 64 H (7-18) mg/dL Creatinine 4.67 H (0.60-1.30) mg/dL Calcium 7.6 L (8.5-10.1) mg/dL AST (15-37) U/L ALT (12-78) U/L Alkaline Phosphatase (45-117) U/L Total Protein (6.4-8.2) g/dL Albumin (3.4-5.0) g/dL Intake and Output 02/25/18 02/25/18 02/25/18 06:59 14:59 22:59 Intake Total 500 / 500 1200 / 1200 Output Total 350 / 350 Balance 150 / 150 1200 / 1200 Intake: IV 1200 / 1200 NS Inj 1,000 ML @ 84 mls/hr IV. 1000 / 1000 CONT .[id number] [facility] Rx#:[id number] Maxipime Inj 1,000 MG In NS Inj 200 / 200 100 ML @ 200 mls/hr IV.SIG Q12H [facility] Rx#:[id number] Oral 500 / 500 Output: Urine Amount (Catheter) 350 / 350 Indwelling Urethral Catheter 350 / 350 Other: Date of Last Bowel Movement 02/24/18 02/24/18 02/24/18 # Bowel Movements 0 # Incontinent Bowel Movements 1 Weight 108.9 kg - Imaging and Cardiology Imaging: Impressions Abdomen/Pelvis CT 02/23/18 00:00 CONCLUSION: 1. No acute findings within the abdomen and pelvis. Previous cholecystectomy. Mild renal cortical atrophy. Valdez catheter in the bladder. Small fat- containing umbilical hernia. 2. Dense consolidation right lung base with probable partially loculated right pleural effusion. Chest X-Ray 02/23/18 17:38 CONCLUSION: Dense consolidation right lung base with moderate right effusion. Mild left basilar airspace disease. Differential diagnosis includes pneumonia and parapneumonic effusion. Chest X-Ray 02/24/18 06:00 CONCLUSION: No significant change. The bilateral airspace disease and bilateral effusions remain right greater than left. Abdomen/Bladder Ultrasound 02/24/18 11:56 CONCLUSION: 1. Negative renal sonogram. Assessment and Plan - Plan Bradycardia, improved Hypotension, improved ARF/CRI, improved Plan: Continue IVF resuscitation BP meds and diuretics on hold. Dr. Garcia will return in AM.
--- NOTE | 2018-02-25 17:23 | P.PNPL ---
Subjective Interval history: 72 YOWM with COPD Ac on ch renal failure, overdiureased Breathing better On NC No Wheezing No CP Physical Exam Vital signs: Vital Signs 02/24/18 18:00 02/24/18 19:00 02/24/18 19:01 Temperature Pulse Rate 49 L 57 L 58 L Respiratory Rate 10 L 29 H 22 Blood Pressure 86/48 L 112/57 L Pulse Oximetry 97 90 L 87 L 02/24/18 20:00 02/24/18 20:14 02/24/18 21:00 Temperature 98.2 F Pulse Rate 55 L 56 L 59 L Respiratory Rate 14 16 54 H Blood Pressure 121/56 L Pulse Oximetry 96 96 98 02/24/18 22:00 02/24/18 22:01 02/24/18 23:00 Temperature Pulse Rate 61 62 58 L Respiratory Rate 21 28 H 18 Blood Pressure 103/54 L 103/54 L Pulse Oximetry 93 L 88 L 96 02/24/18 23:10 02/24/18 23:38 02/24/18 23:40 Temperature Pulse Rate 58 L 52 L 51 L Respiratory Rate 18 9 L 9 L Blood Pressure 171/106 H 82/46 L 84/48 L Pulse Oximetry 95 99 99 02/24/18 23:43 02/24/18 23:44 02/25/18 00:00 Temperature Pulse Rate 53 L 53 L 58 L Respiratory Rate 8 L 8 L 20 Blood Pressure 80/42 L 82/46 L Pulse Oximetry 98 99 96 02/25/18 00:01 02/25/18 01:00 02/25/18 02:00 Temperature 97.8 F Pulse Rate 58 L 56 L 56 L Respiratory Rate 12 9 L 10 L Blood Pressure 104/56 L Pulse Oximetry 96 88 L 93 L 02/25/18 02:08 02/25/18 03:00 02/25/18 03:56 Temperature Pulse Rate 56 L 56 L 54 L Respiratory Rate 8 L 10 L 18 Blood Pressure 109/57 L 126/59 L Pulse Oximetry 93 L 97 02/25/18 04:00 02/25/18 05:00 02/25/18 06:00 Temperature 97.1 F L Pulse Rate 60 56 L 58 L Respiratory Rate 19 24 13 Blood Pressure 130/62 118/58 L 111/66 Pulse Oximetry 100 97 97 02/25/18 07:00 02/25/18 08:00 02/25/18 08:29 Temperature 97.9 F Pulse Rate 56 L 56 L 56 L Respiratory Rate 20 11 L 20 Blood Pressure 117/58 L 125/59 L Pulse Oximetry 99 97 95 02/25/18 09:00 02/25/18 10:00 02/25/18 11:00 Temperature Pulse Rate 65 60 63 Respiratory Rate 22 15 16 Blood Pressure 144/65 H 132/60 134/62 Pulse Oximetry 91 L 95 87 L 02/25/18 12:00 02/25/18 13:00 02/25/18 14:00 Temperature 98.0 F Pulse Rate 71 64 55 L Respiratory Rate 28 H 12 9 L Blood Pressure 109/56 L 121/58 L 108/58 L Pulse Oximetry 92 L 93 L 96 02/25/18 15:00 02/25/18 15:55 02/25/18 16:00 Temperature 98.1 F Pulse Rate 58 L 63 66 Respiratory Rate 10 L 20 25 H Blood Pressure 119/59 L 126/59 L Pulse Oximetry 93 L 100 Intake & Output 02/24/18 02/25/18 02/25/18 18:59 06:59 18:59 Intake Total 1850 / 1850 1500 / 1500 1200 / 1200 Output Total 350 / 350 350 / 350 Balance 1500 / 1500 1150 / 1150 1200 / 1200 Weight 108.9 kg Intake: IV 1350 / 1350 1000 / 1000 1200 / 1200 NS Inj 1,000 ML @ 84 mls/hr IV. 1000 / 1000 1000 / 1000 1000 / 1000 CONT .[id number] [facility] Rx#:[id number] Maxipime Inj 1,000 MG In NS Inj 100 / 100 200 / 200 100 ML @ 200 mls/hr IV.SIG Q12H [facility] Rx#:[id number] NS Inj 250 ML @ As Directed IV. 250 / 250 SIG NOW ONE Rx#:[id number] Oral 500 / 500 500 / 500 Output: Urine Amount (Catheter) 350 / 350 350 / 350 Indwelling Urethral Catheter 350 / 350 350 / 350 Other: Date of Last Bowel Movement 02/24/18 02/24/18 02/24/18 # Bowel Movements 0 # Incontinent Bowel Movements 1 1 GENERAL: Elderly WM, mild sob SKIN: Warm and dry. HEAD: Normocephalic. EYES: No scleral icterus. No injection or drainage. NECK: Supple, trachea midline. No JVD or lymphadenopathy. CARDIOVASCULAR: Regular rate and rhythm without murmurs, gallops, or rubs. RESPIRATORY: Breath sounds equal bilaterally. No accessory muscle use. Decreased BS at bases GASTROINTESTINAL: Abdomen soft, non-tender, nondistended. MUSCULOSKELETAL: No cyanosis, or edema. BACK: Nontender without obvious deformity. No CVA tenderness. - Urinary Catheter Management Indwelling Urethral Catheter Cath placed during this visit: no Assessment and Plan - Plan IMPRESSION: 1. Chronic obstructive pulmonary disease with mild exacerbation. 2. Acute on chronic renal failure, possible over diuresis. 3. Hyperkalemia, improved. 4. Right BKA. 5. Pleural effusion. PLAN: Supplement 02 aerosol nebs Cont Abx SQ Heparin monitor renal functions
[2018-02-26] MEDS ORDERED: Sod Chloride 0.9% Inj 1,000 ML IV.SIG ONE (03:15)
[2018-02-26] MEDS ORDERED: Sod Chloride 0.9% Inj 1,000 ML IV.SIG SCH (03:15)
[2018-02-26] MEDS: Chlorhexidine Gluconate 2% 1 Pack (2 Cloths) TOPICAL SCH (04:00)
[2018-02-26] MEDS: Insulin NovoLOG Aspart Correctional Sugar Inj SQ SCH ×5 (04:23→20:11)
[2018-02-26 06:43] LABS: Hematocrit 29.5 % (39.0-51.0); Hemoglobin 9.9 gm/dL (13.0-17.0); Mean Corpuscular HGB Conc 33.5 % (32.0-36.0); Mean Corpuscular Hemoglobin 30.5 pg (27.0-34.0); Mean Corpuscular Volume 91.1 fL (80.0-100.0); Mean Platelet Volume 8.5 fL (7.0-11.0); Platelet Count 286 th/mm3 (150-450); Red Blood Count 3.24 mil/mm3 (4.50-5.90); Red Cell Distribution Width 14.6 % (11.6-17.2); White Blood Count 9.2 th/mm3 (4.0-11.0)
[2018-02-26 07:08] LABS: Calcium 8.4 mg/dL (8.5-10.1); Carbon Dioxide 27.9 meq/L (21.0-32.0); Potassium 4.1 meq/L (3.5-5.1)
[2018-02-26] MEDS: Heparin - SQ 10,000 UNITS/ML Vial SQ SCH (09:02)
[2018-02-26] MEDS: Senna/Docusate Sodium 8.6/50 MG Tablet PO SCH ×2 (09:03→20:02)
--- NOTE | 2018-02-26 10:49 | P.PNIM ---
Subjective Interval history: Patient reports no changes overnight, he is receiving a nebulizer treatment from respiratory therapy that is routine for some increased airway congestion but no dyspnea. He is awaiting a bed to become available for transfer out of the ICU. His creatinine is nearing baseline. Physical Exam Vital signs: Last Vital Signs Temp 98.3 F 02/26/18 07:00 Pulse 82 02/26/18 07:54 Resp 19 02/26/18 07:54 BP 148/70 H 02/26/18 07:00 Pulse Ox 93 L 02/26/18 07:54 Intake & Output 02/24/18 02/25/18 02/26/18 02/27/18 06:59 06:59 06:59 06:59 Intake Total 2100 / 2100 3350 / 3350 3200 / 3200 Output Total 125 / 125 700 / 700 3850 / 3850 Balance 1974 / 1974 2650 / 2650 -650 / -650 Weight 108.9 kg 108.9 kg 111 kg Narrative: GENERAL: AAOx3, no acute distress SKIN: Warm and dry. No rashes HEAD: Atruamtic, normocephalic. EYES: No scleral icterus. No injection or drainage. ENT: Moist mucous membranes, patent nares, no erythema of oropharynx. NECK: Supple, trachea midline. No JVD or lymphadenopathy. Normal thyroid. CARDIOVASCULAR: Regular rate and rhythm. No murmurs, gallops, or rubs. RESPIRATORY: Breath sounds clear equal bilaterally. No crackles or wheezes. No accessory muscle use. GASTROINTESTINAL: Abdomen soft, non-tender, nondistended, normal active bowel sounds MUSCULOSKELETAL: BKA right leg, left leg is weak at baseline, trace edema left ankle NEURO: CN II-XII grossly intact, no focal deficits, no slurring of speech Urinary Catheter Management Indwelling Urethral Catheter: Cath placed during this visit: no Results Labs CBC & Chem 7: 02/26/18 04:39 02/26/18 04:39 Labs: Microbiology 02/23/18 17:50 Blood - Peripheral Aerobic Blood Culture - Preliminary No growth in 2 days 02/23/18 17:50 Blood - Peripheral Anaerobic Blood Culture - Preliminary No growth in 2 days 02/23/18 17:45 Blood - Peripheral Aerobic Blood Culture - Preliminary No growth in 2 days 02/23/18 17:45 Blood - Peripheral Anaerobic Blood Culture - Preliminary No growth in 2 days 02/23/18 18:00 Clean Catch Urine Urine Culture - Preliminary Yeast species Assessment and Plan (1) Fjinf-sk-phevlfr kidney injury: Code(s): N17.9 - Acute kidney failure, unspecified; N18.9 - Chronic kidney disease, unspecified Status: Acute (2) Hyperkalemia: Code(s): E87.5 - Hyperkalemia Status: Acute (3) CHF (congestive heart failure): Code(s): I50.9 - Heart failure, unspecified Status: Acute (4) Diabetes: Code(s): E11.9 - Type 2 diabetes mellitus without complications Status: Acute Plan 72-year-old male admitted for hypotension and acute kidney injury Hypotension Likely secondary to overdiuresis, dehydration, antihypertensives He was rehydrated and his pressures have remained stable for the last 24 hours May discontinue IV fluids due to normalization of creatinine Patient awaiting a [facility] bed to become available Acute kidney injury Patient has chronic kidney disease, creatinine last September was 1.82 Markedly elevated on admission to 6.3 secondary to dehydration, hypoperfusion Remarkable improvement in creatinine since yesterday, now close to baseline at 1.92 (baseline 1.8) Continue gentle IV fluids, continue daily BMP to monitor creatinine Leukocytosis, sepsis risk Patient was risky for sepsis due to hypotension, though this was likely more of a picture of dehydration Continue empiric coverage with cefepime Follow blood culture results h/o COPD Stable on this admission PRN medications in place, nebulizer, supplemental oxygen DVT Prophylaxis Heparin Progress Note: Quality VTE Deep Vein Thrombosis/Pulmonary Embolism Present on Admission: No _ (1) [id number] kidney injury Qualifiers: Acute renal failure type: unspecified Chronic kidney disease stage: (2) CHF (congestive heart failure) Qualifiers: Heart failure type: Heart failure chronicity: (3) Diabetes Qualifiers: Diabetes mellitus type: Diabetes mellitus care home insulin use: Diabetes mellitus complication status: Diabetes mellitus complication detail: Diabetic retinopathy severity: Proliferative retinopathy type: Diabetes mellitus macular edema: Laterality: Chronic kidney disease stage:
[2018-02-26] MEDS: Sod Chloride 0.9% Inj 1,000 ML IV.CONT SCH (11:07)
--- NOTE | 2018-02-26 13:06 | US ---
EXAM DATE: 02/26/2018 12:55 PM EST AGE/SEX: 72 years / Male INDICATIONS: Left arm swelling and redness. CLINICAL DATA: This is the patient's initial encounter. Patient reports that signs and symptoms have been present for 1 day and indicates a pain score of 0/10. MEDICAL/SURGICAL HISTORY: Renal insufficiency, chronic. Chronic obstructive pulmonary disease. Hypertension. Diabetes. CHF. Acute kidney injury. . Below the knee amputation. COMPARISON: No prior exams available for comparison. FINDINGS: Deep venous system appears to be patent throughout. However, occlusive thrombus is identif ied in the cephalic vein from the antecubital fossa centrally with nonocclusive thrombus in the regio n of the antecubital basilic vein. .Other: Additionally, there is a 2.4 x 2.1 cm cystic structure adjacent to the left subclavian arter y and vein. This does not appear to communicate with either vascular structure and does not show any Doppler blood flow itself. Area is subjacent to a region of scarring. CONCLUSION: 1. No deep venous thrombosis. 2. There is occlusive and nonocclusive thrombus in the superficial venous system of the left upper e xtremity. Occlusive thrombus in the cephalic vein from the antecubital fossa centrally with nonocclus mat thrombus in the basilic vein in the region of the antecubital fossa. 3. 2.4 x 2.1 cm benign-appearing cystic structure adjacent to the left subclavian artery and vein. T his does not communicate with either vascular structure and appears to be subjacent to a superficial scar where the patient reports prior shrapnel. I suspect that this represents a chronic seroma. Electronically signed by: Yomi Camejo MD Board Certified Radiologist 02/26/2018 1:04 PM EST
--- NOTE | 2018-02-26 13:23 | US ---
EXAM DATE: 02/26/2018 1:15 PM EST AGE/SEX: 72 years / Male INDICATIONS: Right arm swelling. CLINICAL DATA: This is the patient's initial encounter. Patient reports that signs and symptoms have been present for 1 day and indicates a pain score of 0/10. MEDICAL/SURGICAL HISTORY: . Renal insufficiency, chronic. Chronic obstructive pulmonary diseas e. Hypertension. Diabetes. CHF. Acute kidney injury. . . Below the knee amputation. COMPARISON: No prior exams available for comparison. FINDINGS: The vessels are compressible and augmentation response is documented. No filling defects a re seen. The flow is phasic with respiration. Other: Complex thyroid nodule right neck measuring 1.9 cm. CONCLUSION: 1. Negative for deep vein thrombosis 2. 1.9 cm complex thyroid nodule Electronically signed by: Mynor Whiteside MD Board Certified Radiologist 02/26/2018 1:22 PM EST
--- NOTE | 2018-02-26 16:04 | P.PNCA ---
Subjective Interval history: Patient denies any CP, pressure, palpitations, dizziness, edema or SOB. Medications and Allergies Allergies Allergy/AdvReac Type Severity Reaction Status Date / Time codeine Allergy Mild Constipatio Verified 02/23/18 17:36 n Home Medications Medication Instructions Recorded Confirmed Type amoxicillin-pot clavulanate 1 tab PO Q12H 02/23/18 02/23/18 History [Augmentin] atenolol [Tenormin] 50 mg PO DAILY 02/23/18 02/23/18 History budesonide-formoterol [Symbicort] 2 puff INHALATION BID 02/23/18 02/23/18 History clopidogrel [Plavix] 75 mg PO DAILY 02/23/18 02/23/18 History cyanocobalamin (vitamin B-12) 1,000 mcg IM QMONTH 02/23/18 02/23/18 History dexamethasone sodium phosphate 4 mg IV QWEEK 02/23/18 02/23/18 History doxazosin 2 mg PO DAILY 02/23/18 02/23/18 History fexofenadine [Shiloh Allergy] 60 mg PO BID 02/23/18 02/23/18 History furosemide [Lasix] 40 mg PO BID 02/23/18 02/23/18 History gabapentin 300 mg PO TID 02/23/18 02/23/18 History glipizide 5 mg PO DAILY 02/23/18 02/23/18 History guaifenesin [Mucinex] 600 mg PO Q12H 02/23/18 02/23/18 History ipratropium-albuterol 3 ml INHALATION QID 02/23/18 02/23/18 History lisinopril 10 mg PO DAILY 02/23/18 02/23/18 History melatonin 3 mg PO HS PRN 02/23/18 02/23/18 History montelukast 10 mg PO QPM 02/23/18 02/23/18 History oxycodone-acetaminophen [Percocet] 1 tab PO Q4H PRN 02/23/18 02/23/18 History pantoprazole [Protonix] 40 mg PO DAILY 02/23/18 02/23/18 History potassium chloride 20 meq PO BID 02/23/18 02/23/18 History propranolol 40 mg PO BID 02/23/18 02/23/18 History ropinirole [Requip] 2 mg PO HS 02/23/18 02/23/18 History sertraline [Zoloft] 50 mg PO DAILY 02/23/18 02/23/18 History trazodone 150 mg PO DAILY 02/23/18 02/23/18 History Active Medications: Active Medications Al Hydroxide/Mg Hydroxide (Milk Of Magnesia Liq) 30 ml PO Q12H PRN PRN Reason: Mild Constipation Albuterol (Albuterol Neb (Prn)) 2.5 mg NEB Q2HR NEB PRN PRN Reason: SHORTNESS OF BREATH/WHEEZING Albuterol (Duoneb Neb (Denice)) 1 ampul NEB Q6HR NEB [facility] Last Admin: 02/26/18 07:53 Dose: 1 ampul Apixaban (Eliquis) 10 mg PO BID [facility] Stop: 03/04/18 23:59 Last Admin: 02/26/18 15:36 Dose: 10 mg Bisacodyl (Dulcolax Supp) 10 mg RECTAL DAILY PRN PRN Reason: SEVERE CONSITIPATION Chlorhexidine Gluconate (Chlorhexidine 2% Cloth) 3 pack TOPICAL DAILY@0400 [facility] Stop: 03/01/18 03:59 Last Admin: 02/26/18 04:00 Dose: 3 pack Chlorhexidine Gluconate (Chlorhexidine 2% Cloth) 3 pack TOPICAL DAILY@0400 PRN PRN Reason: Extra cloth needed Stop: 03/01/18 03:59 Dextrose (D50w Vial) 50 ml IV.PUSH UNSCH PRN PRN Reason: PER HYPOGLYCEMIA PROTOCOL Glucagon (Glucagon Inj) 1 mg OTHER PRN PRN PRN Reason: for Hypoglycemia Protocol Cefepime HCl 1,000 mg/ Sodium (Chloride) 100 mls @ 200 mls/hr IV.SIG Q12H [facility] Last Infusion: 02/26/18 11:06 Dose: Infused Insulin Aspart (Novolog Insulin Correctional Sugar Inj) 0 unit SQ ACHS AND 3AM [facility]; Protocol Last Admin: 02/26/18 12:22 Dose: 4 unit Lactulose (Lactulose Liq) 30 ml PO DAILY PRN PRN Reason: SEVERE CONSITIPATION Ondansetron HCl (Zofran Inj) 4 mg IV.PUSH Q6H PRN PRN Reason: NAUSEA OR VOMITING Senna/Docusate Sodium (Jo-Colace) 1 tab PO BID [facility] Last Admin: 02/26/18 09:03 Dose: 1 tab Sennosides (Senokot) 17.2 mg PO Q12H PRN PRN Reason: Moderate Constipation Sodium Chloride (Ns Flush) 2 ml IV.FLUSH BID [facility] Last Admin: 02/26/18 09:03 Dose: 2 ml Sodium Chloride (Ns Flush) 2 ml IV.FLUSH PRN PRN PRN Reason: FLUSH AFTER USING IV ACCESS Last Admin: 02/25/18 08:39 Dose: 2 ml Temazepam (Restoril) 7.5 mg PO HS PRN PRN Reason: INSOMNIA Last Admin: 02/25/18 23:03 Dose: 7.5 mg Physical Exam Vital signs: Vital Signs 02/25/18 15:55 02/25/18 16:00 02/25/18 17:00 Temperature 98.1 F Pulse Rate 63 66 74 Respiratory Rate 20 25 H 26 H Blood Pressure 126/59 L 142/62 H Pulse Oximetry 100 91 L 02/25/18 18:00 02/25/18 19:00 02/25/18 20:00 Temperature 98.4 F Pulse Rate 78 80 80 Respiratory Rate 33 H 18 18 Blood Pressure 138/63 124/60 111/54 L Pulse Oximetry 93 L 93 L 93 L 02/25/18 21:00 02/25/18 22:00 02/25/18 22:43 Temperature 98.4 F 98.4 F Pulse Rate 82 79 74 Respiratory Rate 23 26 H 16 Blood Pressure 156/74 H 154/72 H Pulse Oximetry 93 L 95 92 L 02/25/18 23:00 02/26/18 00:00 02/26/18 01:00 Temperature 98.4 F 98.4 F 98.4 F Pulse Rate 73 62 60 Respiratory Rate 20 12 10 L Blood Pressure 133/63 111/53 L 115/56 L Pulse Oximetry 95 96 96 02/26/18 02:00 02/26/18 03:00 02/26/18 04:00 Temperature 98.2 F 98.2 F 98.2 F Pulse Rate 61 63 69 Respiratory Rate 10 L 10 L 21 Blood Pressure 139/64 139/67 145/65 H Pulse Oximetry 98 98 94 L 02/26/18 04:10 02/26/18 05:00 02/26/18 06:00 Temperature 98.2 F 98.2 F Pulse Rate 70 70 77 Respiratory Rate 16 16 16 Blood Pressure 158/72 H 121/59 L Pulse Oximetry 95 95 02/26/18 07:00 02/26/18 07:54 02/26/18 08:00 Temperature 98.3 F Pulse Rate 79 82 78 Respiratory Rate 16 19 18 Blood Pressure 148/70 H 157/73 H Pulse Oximetry 96 93 L 95 02/26/18 09:00 02/26/18 10:00 02/26/18 10:01 Temperature Pulse Rate 75 80 80 Respiratory Rate 21 19 19 Blood Pressure 164/77 H 147/70 H Pulse Oximetry 91 L 92 L 02/26/18 11:00 02/26/18 12:00 02/26/18 13:00 Temperature 98.5 F Pulse Rate 68 80 71 Respiratory Rate 24 34 H Blood Pressure 143/65 H 166/77 H Pulse Oximetry 98 94 L 95 02/26/18 13:15 02/26/18 14:00 Temperature Pulse Rate 69 63 Respiratory Rate 18 15 Blood Pressure 162/73 H 154/67 H Pulse Oximetry 95 96 Intake & Output 02/25/18 02/26/18 02/26/18 18:59 06:59 18:59 Intake Total 1900 / 1900 1300 / 1300 1050 / 1050 Output Total 1800 / 1800 2049 Balance 100 / 100 -750 / -750 1050 / 1050 Weight 111 kg Intake: IV 1200 / 1200 1100 / 1100 1050 / 1050 NS Inj 1,000 ML @ 84 mls/hr IV. 1000 / 1000 1000 / 1000 950 / 950 CONT .[id number] [facility] Rx#:[id number] Maxipime Inj 1,000 MG In NS Inj 200 / 200 100 / 100 100 / 100 100 ML @ 200 mls/hr IV.SIG Q12H [facility] Rx#:[id number] Oral 700 / 700 200 / 200 Output: Stool 0 / 0 Urine/Stool Mix 0 / 0 Urine Amount (Catheter) 1799 Indwelling Urethral Catheter 1799 Other: Date of Last Bowel Movement 02/24/18 02/24/18 02/24/18 # Bowel Movements 0 # Incontinent Bowel Movements 0 - Constitutional no acute distress - Routine HEENT Exam Head: Present: normocephalic Eye: Present: PERRL ENT: Present: mucous membranes moist - Routine Neck Exam Present: full ROM - Routine Respiratory Exam Present: CTA bilaterally - Routine Cardiovascular Exam Present: S1, S2. Absent: gallop, rubs - Routine Abdominal Exam Present: normoactive bowel sounds - Routine Extremities Exam Present: edema, full ROM, pulses intact, normal capillary refill, amputation. Absent: cyanosis, clubbing Comments: right BKA - Routine Skin Exam Present: erythema, warm, ecchymosis Comments: left arm - Routine Neurological Exam Present: oriented X3 - Detailed Neurological Exam: Coma Scale Eye Opening: Spontaneous Verbal Response: Oriented Motor Response: Obey commands Jose Coma Scale Total: 15 - Routine Psychiatric Exam Present: normal affect - Urinary Catheter Management Indwelling Urethral Catheter Cath placed during this visit: no Results 02/26/18 04:39 02/26/18 04:39 Cardiac Enzymes 02/25/18 Range/Units 04:00 B-Natriuretic Peptide 337 H (0-100) pg/mL Coagulation 02/25/18 Range/Units 04:00 B-Natriuretic Peptide 337 H (0-100) pg/mL CBC 02/25/18 02/26/18 Range/Units 04:00 04:39 WBC 7.8 9.2 (4.0-11.0) th/mm3 RBC 3.28 L 3.24 L (4.50-5.90) mil/mm3 Hgb 9.9 L 9.9 L (13.0-17.0) gm/dL Hct 30.2 L 29.5 L (39.0-51.0) % Plt Count 222 286 (150-450) th/mm3 Neut # (Auto) 5.4 (1.8-7.7) th/mm3 Lymph # (Auto) 1.2 (1.0-4.8) th/mm3 [place] # (Auto) 0.9 (0.0-0.9) th/mm3 Eos # (Auto) 0.2 (0.0-0.4) th/mm3 Baso # (Auto) 0.0 (0.0-0.2) th/mm3 Comprehensive Metabolic Panel 02/25/18 02/26/18 Range/Units 04:00 04:39 Sodium 138 144 (136-145) meq/L Potassium 4.2 4.1 (3.5-5.1) meq/L Chloride 104 111 H (98-107) meq/L Carbon Dioxide 25.3 27.9 (21.0-32.0) meq/L BUN 64 H 49 H (7-18) mg/dL Creatinine 4.67 H 1.92 H (0.60-1.30) mg/dL Calcium 7.6 L 8.4 L D (8.5-10.1) mg/dL Intake and Output 02/26/18 02/26/18 02/26/18 06:59 14:59 22:59 Intake Total 300 / 300 1050 / 1050 Output Total 2049 Balance -1750 / -1750 1050 / 1050 Intake: IV 100 / 100 1050 / 1050 NS Inj 1,000 ML @ 84 mls/hr IV. 950 / 950 CONT .[id number] [facility] Rx#:[id number] Maxipime Inj 1,000 MG In NS Inj 100 / 100 100 / 100 100 ML @ 200 mls/hr IV.SIG Q12H [facility] Rx#:[id number] Oral 200 / 200 Output: Stool 0 / 0 Urine/Stool Mix 0 / 0 Urine Amount (Catheter) 2049 Indwelling Urethral Catheter 2049 Other: Date of Last Bowel Movement 02/24/18 02/24/18 # Bowel Movements 0 # Incontinent Bowel Movements 0 Weight 111 kg - Imaging and Cardiology Imaging: Impressions Venous Doppler Study 02/26/18 00:00 CONCLUSION: 1. No deep venous thrombosis. 2. There is occlusive and nonocclusive thrombus in the superficial venous system of the left upper extremity. Occlusive thrombus in the cephalic vein from the antecubital fossa centrally with nonocclusive thrombus in the basilic vein in the region of the antecubital fossa. 3. 2.4 x 2.1 cm benign-appearing cystic structure adjacent to the left subclavian artery and vein. This does not communicate with either vascular structure and appears to be subjacent to a superficial scar where the patient reports prior shrapnel. I suspect that this represents a chronic seroma. Venous Doppler Study 02/26/18 00:00 CONCLUSION: 1. Negative for deep vein thrombosis 2. 1.9 cm complex thyroid nodule Assessment and Plan - Assessment (1) Hypotension Code(s): I95.9 - Hypotension, unspecified Status: Acute (2) Rpuci-[id number]-ziognnb kidney injury Code(s): N17.9 - Acute kidney failure, unspecified; N18.9 - Chronic kidney disease, unspecified Status: Acute (3) History of pneumonia Code(s): Z87.01 - Personal history of pneumonia (recurrent) Status: Acute (4) Urinary tract infection Code(s): N39.0 - Urinary tract infection, site not specified Status: Acute (5) Hyperkalemia Code(s): E87.5 - Hyperkalemia Status: Acute (6) CHF (congestive heart failure) Code(s): I50.9 - Heart failure, unspecified Status: Acute (7) Diabetes Code(s): E11.9 - Type 2 diabetes mellitus without complications Status: Acute - Plan Patient is currently hypertensive, start amlodipine 10mg PO QD. Patient is SR in the 80's, continue to monitor on telemetry. 2D echo 02/24/18 showed mild LV hypertrophy, EF 55-60%, trace mitral regurgitation , moderate tricuspid regurgitation, mild pulmonary valve regurgitation, moderate - severe pulmonary hypertension, pulmonary artery pressure 71 mmHg. Patient has BETSEY/CKD, nephrology evaluation in progress. Patient has pleural effusions/pneumonia, pulmonary evaluation in progress. We will continue to monitor the patient during his hospitalization. The patient was seen and evaluated by Dr. Garcia who participated in care, management and decision making. - Attending Attestation Patient seen and examined. I reviewed and agree with the evaluation and plan as presented. Renal fx improving. BP elevated, start amlodipine. Continue monitoring on tele. Transfer to floor as planned. Increase activity, PT. Will schedule f/u in our office after discharge. (1) Hypotension Qualifiers: Hypotension type: hypotension due to hypovolemia Qualified Code(s): I95.89 - Other hypotension; E86.1 - Hypovolemia (2) Xgldo-[id number] kidney injury Qualifiers: Acute renal failure type: unspecified (4) Urinary tract infection Qualifiers: Urinary tract infection type: acute cystitis Hematuria presence: without hematuria Qualified Code(s): N30.00 - Acute cystitis without hematuria
[2018-02-26] MEDS: amLODIPine 10 MG Tablet PO SCH (16:50)
--- NOTE | 2018-02-26 20:27 | P.PNPL ---
Subjective Interval history: 72 YOWM with COPD Ac on ch renal failure, overdiureased Breathing better On NC No Wheezing No CP Temazepam helps with sleep ,not enough Physical Exam Vital signs: Vital Signs 02/25/18 21:00 02/25/18 22:00 02/25/18 22:43 Temperature 98.4 F 98.4 F Pulse Rate 82 79 74 Respiratory Rate 23 26 H 16 Blood Pressure 156/74 H 154/72 H Pulse Oximetry 93 L 95 92 L 02/25/18 23:00 02/26/18 00:00 02/26/18 01:00 Temperature 98.4 F 98.4 F 98.4 F Pulse Rate 73 62 60 Respiratory Rate 20 12 10 L Blood Pressure 133/63 111/53 L 115/56 L Pulse Oximetry 95 96 96 02/26/18 02:00 02/26/18 03:00 02/26/18 04:00 Temperature 98.2 F 98.2 F 98.2 F Pulse Rate 61 63 69 Respiratory Rate 10 L 10 L 21 Blood Pressure 139/64 139/67 145/65 H Pulse Oximetry 98 98 94 L 02/26/18 04:10 02/26/18 05:00 02/26/18 06:00 Temperature 98.2 F 98.2 F Pulse Rate 70 70 77 Respiratory Rate 16 16 16 Blood Pressure 158/72 H 121/59 L Pulse Oximetry 95 95 02/26/18 07:00 02/26/18 07:54 02/26/18 08:00 Temperature 98.3 F Pulse Rate 79 82 78 Respiratory Rate 16 19 18 Blood Pressure 148/70 H 157/73 H Pulse Oximetry 96 93 L 95 02/26/18 09:00 02/26/18 10:00 02/26/18 10:01 Temperature Pulse Rate 75 80 80 Respiratory Rate 21 19 19 Blood Pressure 164/77 H 147/70 H Pulse Oximetry 91 L 92 L 02/26/18 11:00 02/26/18 12:00 02/26/18 13:00 Temperature 98.5 F Pulse Rate 68 80 71 Respiratory Rate 24 34 H Blood Pressure 143/65 H 166/77 H Pulse Oximetry 98 94 L 95 02/26/18 13:15 02/26/18 14:00 02/26/18 15:00 Temperature Pulse Rate 69 63 66 Respiratory Rate 18 15 18 Blood Pressure 162/73 H 154/67 H 162/72 H Pulse Oximetry 95 96 94 L 02/26/18 15:54 02/26/18 16:00 02/26/18 17:00 Temperature Pulse Rate 63 62 69 Respiratory Rate 15 16 19 Blood Pressure 176/73 H 169/76 H Pulse Oximetry 100 93 L 02/26/18 18:00 02/26/18 18:20 Temperature Pulse Rate 80 81 Respiratory Rate 22 Blood Pressure 173/79 H 174/74 H Pulse Oximetry 92 L Intake & Output 02/26/18 02/26/18 02/27/18 06:59 18:59 06:59 Intake Total 1300 / 1300 1530 / 1530 Output Total 2049 Balance -750 / -750 -470 / -470 Weight 111 kg Intake: IV 1100 / 1100 1050 / 1050 NS Inj 1,000 ML @ 84 mls/hr IV. 1000 / 1000 950 / 950 CONT .[id number] [facility] Rx#:[id number] Maxipime Inj 1,000 MG In NS Inj 100 / 100 100 / 100 100 ML @ 200 mls/hr IV.SIG Q12H [facility] Rx#:[id number] Oral 200 / 200 480 / 480 Output: Stool 0 / 0 Urine/Stool Mix 0 / 0 Urine Amount (Catheter) 2049 Indwelling Urethral Catheter 2049 Other: Date of Last Bowel Movement 02/24/18 02/24/18 # Bowel Movements 0 1 # Incontinent Bowel Movements 0 GENERAL: Obese WM, Mild sob SKIN: Warm and dry. HEAD: Normocephalic. EYES: No scleral icterus. No injection or drainage. NECK: Supple, trachea midline. No JVD or lymphadenopathy. CARDIOVASCULAR: Regular rate and rhythm without murmurs, gallops, or rubs. RESPIRATORY: Breath sounds equal bilaterally. No accessory muscle use. GASTROINTESTINAL: Abdomen soft, non-tender, nondistended. MUSCULOSKELETAL: No cyanosis, or edema. BACK: Nontender without obvious deformity. No CVA tenderness. - Urinary Catheter Management Indwelling Urethral Catheter Cath placed during this visit: no Assessment and Plan - Plan IMPRESSION: 1. Chronic obstructive pulmonary disease with mild exacerbation. 2. Acute on chronic renal failure, possible over diuresis. 3. Hyperkalemia, improved. 4. Right BKA. 5. Pleural effusion. PLAN: Supplement 02 aerosol nebs Cont Abx SQ Heparin monitor renal functions Temazepam 7.5 mg prn for sleep
--- NOTE | 2018-02-26 21:04 | P.PNNP ---
Subjective Interval history: Patient seen in the afternoon,alert, mild SOB, not in distress. Physical Exam Vital signs: Vital Signs 02/25/18 22:00 02/25/18 22:43 02/25/18 23:00 Temperature 98.4 F 98.4 F Pulse Rate 79 74 73 Respiratory Rate 26 H 16 20 Blood Pressure 154/72 H 133/63 Pulse Oximetry 95 92 L 95 02/26/18 00:00 02/26/18 01:00 02/26/18 02:00 Temperature 98.4 F 98.4 F 98.2 F Pulse Rate 62 60 61 Respiratory Rate 12 10 L 10 L Blood Pressure 111/53 L 115/56 L 139/64 Pulse Oximetry 96 96 98 02/26/18 03:00 02/26/18 04:00 02/26/18 04:10 Temperature 98.2 F 98.2 F Pulse Rate 63 69 70 Respiratory Rate 10 L 21 16 Blood Pressure 139/67 145/65 H Pulse Oximetry 98 94 L 02/26/18 05:00 02/26/18 06:00 02/26/18 07:00 Temperature 98.2 F 98.2 F 98.3 F Pulse Rate 70 77 79 Respiratory Rate 16 16 16 Blood Pressure 158/72 H 121/59 L 148/70 H Pulse Oximetry 95 95 96 02/26/18 07:54 02/26/18 08:00 02/26/18 09:00 Temperature Pulse Rate 82 78 75 Respiratory Rate 19 18 21 Blood Pressure 157/73 H 164/77 H Pulse Oximetry 93 L 95 02/26/18 10:00 02/26/18 10:01 02/26/18 11:00 Temperature Pulse Rate 80 80 68 Respiratory Rate 19 19 Blood Pressure 147/70 H 143/65 H Pulse Oximetry 91 L 92 L 98 02/26/18 12:00 02/26/18 13:00 02/26/18 13:15 Temperature 98.5 F Pulse Rate 80 71 69 Respiratory Rate 24 34 H 18 Blood Pressure 166/77 H 162/73 H Pulse Oximetry 94 L 95 95 02/26/18 14:00 02/26/18 15:00 02/26/18 15:54 Temperature Pulse Rate 63 66 63 Respiratory Rate 15 18 15 Blood Pressure 154/67 H 162/72 H Pulse Oximetry 96 94 L 02/26/18 16:00 02/26/18 17:00 02/26/18 18:00 Temperature Pulse Rate 62 69 80 Respiratory Rate 16 19 Blood Pressure 176/73 H 169/76 H 173/79 H Pulse Oximetry 100 93 L 02/26/18 18:20 Temperature Pulse Rate 81 Respiratory Rate 22 Blood Pressure 174/74 H Pulse Oximetry 92 L Intake & Output 02/26/18 02/26/18 02/27/18 06:59 18:59 06:59 Intake Total 1300 / 1300 1530 / 1530 Output Total 2049 Balance -750 / -750 -470 / -470 Weight 111 kg Intake: IV 1100 / 1100 1050 / 1050 NS Inj 1,000 ML @ 84 mls/hr IV. 1000 / 1000 950 / 950 CONT .[id number] [facility] Rx#:[id number] Maxipime Inj 1,000 MG In NS Inj 100 / 100 100 / 100 100 ML @ 200 mls/hr IV.SIG Q12H [facility] Rx#:[id number] Oral 200 / 200 480 / 480 Output: Stool 0 / 0 Urine/Stool Mix 0 / 0 Urine Amount (Catheter) 2049 Indwelling Urethral Catheter 2049 Other: Date of Last Bowel Movement 02/24/18 02/24/18 # Bowel Movements 0 1 # Incontinent Bowel Movements 0 Narrative: GENERAL: AAOx3, no acute distress SKIN: Warm and dry. No rashes HEAD: Atruamtic, normocephalic. EYES: No scleral icterus. No injection or drainage. ENT: Moist mucous membranes, patent nares, no erythema of oropharynx. NECK: Supple, trachea midline. No JVD or lymphadenopathy. Normal thyroid. CARDIOVASCULAR: Regular rate and rhythm. No murmurs, gallops, or rubs. RESPIRATORY: Breath sounds clear equal bilaterally. No crackles or wheezes. No accessory muscle use. GASTROINTESTINAL: Abdomen soft, non-tender, nondistended, normal active bowel sounds MUSCULOSKELETAL: BKA right leg, left leg is weak at baseline, trace edema left ankle NEURO: CN II-XII grossly intact, no focal deficits, no slurring of speech - Urinary Catheter Management Indwelling Urethral Catheter Cath placed during this visit: no Assessment and Plan - Assessment (1) Qynys-ge-aveykjm kidney injury Code(s): N17.9 - Acute kidney failure, unspecified; N18.9 - Chronic kidney disease, unspecified Status: Acute Qualifiers: Acute renal failure type: unspecified Plan: Patient with chronic kidney disease and admitted with BETSEY. He was recently discharge from [facility] BETSEY secondary to volume depletion/ over-diuresis Creatinine 1.8 in September of 2017 Creatinine continue to improve and now 1.92, Avoid Nephrotoxins, Renal ultrasound with increased echogenicity, suggestive of CKD Follow the urine out put and BMP. (2) Hyperkalemia Code(s): E87.5 - Hyperkalemia Status: Acute Plan: 6.1 on admisssion. Improved, continue to monitor (3) CHF (congestive heart failure) Code(s): I50.9 - Heart failure, unspecified Status: Acute Plan: On IVFs now, continue to monitor. (4) Diabetes Code(s): E11.9 - Type 2 diabetes mellitus without complications Status: Acute Plan: Continue to monitor glucose
[2018-02-27 06:41] LABS: Hematocrit 32.5 % (39.0-51.0); Hemoglobin 10.7 gm/dL (13.0-17.0); Mean Corpuscular HGB Conc 32.8 % (32.0-36.0); Mean Corpuscular Hemoglobin 29.9 pg (27.0-34.0); Mean Corpuscular Volume 91.1 fL (80.0-100.0); Mean Platelet Volume 7.8 fL (7.0-11.0); Platelet Count 288 th/mm3 (150-450); Red Blood Count 3.57 mil/mm3 (4.50-5.90); Red Cell Distribution Width 14.2 % (11.6-17.2); White Blood Count 8.3 th/mm3 (4.0-11.0)
[2018-02-27] MEDS: Insulin NovoLOG Aspart Correctional Sugar Inj SQ SCH ×5 (06:48→20:34)
[2018-02-27] MEDS: Chlorhexidine Gluconate 2% 1 Pack (2 Cloths) TOPICAL SCH (06:49)
[2018-02-27 07:12] LABS: Calcium 8.6 mg/dL (8.5-10.1)
[2018-02-27 07:16] LABS: Potassium 3.9 meq/L (3.5-5.1)
[2018-02-27] MEDS: amLODIPine 10 MG Tablet PO SCH (08:44)
[2018-02-27] MEDS: Senna/Docusate Sodium 8.6/50 MG Tablet PO SCH ×2 (08:45→20:34)
[2018-02-27] MEDS ORDERED: Lisinopril 5 MG Tablet PO SCH (10:00)
[2018-02-27] MEDS: Artificial Tears Opth Drops 15 ML Bottle EACH EYE SCH ×4 (10:25→22:32)
--- NOTE | 2018-02-27 13:33 | P.PNCA ---
Subjective Interval history: Patient denies any CP, pressure, palpitations, dizziness, edema or SOB. Medications and Allergies Allergies Allergy/AdvReac Type Severity Reaction Status Date / Time codeine Allergy Mild Constipatio Verified 02/23/18 17:36 n Home Medications Medication Instructions Recorded Confirmed Type amoxicillin-pot clavulanate 1 tab PO Q12H 02/23/18 02/23/18 History [Augmentin] atenolol [Tenormin] 50 mg PO DAILY 02/23/18 02/23/18 History budesonide-formoterol [Symbicort] 2 puff INHALATION BID 02/23/18 02/23/18 History clopidogrel [Plavix] 75 mg PO DAILY 02/23/18 02/23/18 History cyanocobalamin (vitamin B-12) 1,000 mcg IM QMONTH 02/23/18 02/23/18 History dexamethasone sodium phosphate 4 mg IV QWEEK 02/23/18 02/23/18 History doxazosin 2 mg PO DAILY 02/23/18 02/23/18 History fexofenadine [Shiloh Allergy] 60 mg PO BID 02/23/18 02/23/18 History furosemide [Lasix] 40 mg PO BID 02/23/18 02/23/18 History gabapentin 300 mg PO TID 02/23/18 02/23/18 History glipizide 5 mg PO DAILY 02/23/18 02/23/18 History guaifenesin [Mucinex] 600 mg PO Q12H 02/23/18 02/23/18 History ipratropium-albuterol 3 ml INHALATION QID 02/23/18 02/23/18 History lisinopril 10 mg PO DAILY 02/23/18 02/23/18 History melatonin 3 mg PO HS PRN 02/23/18 02/23/18 History montelukast 10 mg PO QPM 02/23/18 02/23/18 History oxycodone-acetaminophen [Percocet] 1 tab PO Q4H PRN 02/23/18 02/23/18 History pantoprazole [Protonix] 40 mg PO DAILY 02/23/18 02/23/18 History potassium chloride 20 meq PO BID 02/23/18 02/23/18 History propranolol 40 mg PO BID 02/23/18 02/23/18 History ropinirole [Requip] 2 mg PO HS 02/23/18 02/23/18 History sertraline [Zoloft] 50 mg PO DAILY 02/23/18 02/23/18 History trazodone 150 mg PO DAILY 02/23/18 02/23/18 History Active Medications: Active Medications Al Hydroxide/Mg Hydroxide (Milk Of Magnesia Liq) 30 ml PO Q12H PRN PRN Reason: Mild Constipation Albuterol (Albuterol Neb (Prn)) 2.5 mg NEB Q2HR NEB PRN PRN Reason: SHORTNESS OF BREATH/WHEEZING Albuterol (Duoneb Neb (Denice)) 1 ampul NEB Q6HR NEB [facility] Last Admin: 02/27/18 08:12 Dose: 1 ampul Amlodipine Besylate (Norvasc) 10 mg PO DAILY [facility] Last Admin: 02/27/18 08:44 Dose: 10 mg Apixaban (Eliquis) 10 mg PO BID [facility] Stop: 03/04/18 23:59 Last Admin: 02/27/18 08:44 Dose: 10 mg Artificial Tears (Tears Naturale Opth Drops) 1 drop EACH EYE Q4H [facility] Last Admin: 02/27/18 10:25 Dose: 1 drop Bisacodyl (Dulcolax Supp) 10 mg RECTAL DAILY PRN PRN Reason: SEVERE CONSITIPATION Chlorhexidine Gluconate (Chlorhexidine 2% Cloth) 3 pack TOPICAL DAILY@0400 [facility] Stop: 03/01/18 03:59 Last Admin: 02/27/18 06:49 Dose: 3 pack Chlorhexidine Gluconate (Chlorhexidine 2% Cloth) 3 pack TOPICAL DAILY@0400 PRN PRN Reason: Extra cloth needed Stop: 03/01/18 03:59 Dextrose (D50w Vial) 50 ml IV.PUSH UNSCH PRN PRN Reason: PER HYPOGLYCEMIA PROTOCOL Glucagon (Glucagon Inj) 1 mg OTHER PRN PRN PRN Reason: for Hypoglycemia Protocol Cefepime HCl 1,000 mg/ Sodium (Chloride) 100 mls @ 200 mls/hr IV.SIG Q12H [facility] Last Infusion: 02/27/18 09:17 Dose: Infused Insulin Aspart (Novolog Insulin Correctional Sugar Inj) 0 unit SQ ACHS AND 3AM DENICE; Protocol Last Admin: 02/27/18 11:21 Dose: Not Given Lactulose (Lactulose Liq) 30 ml PO DAILY PRN PRN Reason: SEVERE CONSITIPATION Lisinopril (Prinivil) 5 mg PO DAILY [facility] Last Admin: 02/27/18 10:25 Dose: 5 mg Ondansetron HCl (Zofran Inj) 4 mg IV.PUSH Q6H PRN PRN Reason: NAUSEA OR VOMITING Last Admin: 02/27/18 09:41 Dose: 4 mg Senna/Docusate Sodium (Jo-Colace) 1 tab PO BID [facility] Last Admin: 02/27/18 08:45 Dose: Not Given Sennosides (Senokot) 17.2 mg PO Q12H PRN PRN Reason: Moderate Constipation Sodium Chloride (Ns Flush) 2 ml IV.FLUSH BID [facility] Last Admin: 02/27/18 08:44 Dose: 2 ml Sodium Chloride (Ns Flush) 2 ml IV.FLUSH PRN PRN PRN Reason: FLUSH AFTER USING IV ACCESS Last Admin: 02/25/18 08:39 Dose: 2 ml Temazepam (Restoril) 7.5 mg PO HS PRN PRN Reason: INSOMNIA Last Admin: 02/26/18 20:58 Dose: 7.5 mg Physical Exam Vital signs: Vital Signs 02/26/18 14:00 02/26/18 15:00 02/26/18 15:54 Temperature Pulse Rate 63 66 63 Respiratory Rate 15 18 15 Blood Pressure 154/67 H 162/72 H Pulse Oximetry 96 94 L 02/26/18 16:00 02/26/18 17:00 02/26/18 18:00 Temperature Pulse Rate 62 69 80 Respiratory Rate 16 19 Blood Pressure 176/73 H 169/76 H 173/79 H Pulse Oximetry 100 93 L 02/26/18 18:20 02/26/18 19:00 02/26/18 20:00 Temperature 98.3 F 98.3 F Pulse Rate 81 80 80 Respiratory Rate 22 14 22 Blood Pressure 174/74 H 148/67 H 164/75 H Pulse Oximetry 92 L 94 L 90 L 02/26/18 21:00 02/26/18 21:18 02/26/18 21:20 Temperature Pulse Rate 79 74 Respiratory Rate 40 H 22 Blood Pressure 164/74 H Pulse Oximetry 89 L 94 L 02/26/18 22:00 02/26/18 23:00 02/27/18 00:00 Temperature Pulse Rate 67 67 71 Respiratory Rate 13 14 28 H Blood Pressure 146/64 H 152/67 H 166/75 H Pulse Oximetry 94 L 94 L 92 L 02/27/18 00:32 02/27/18 01:00 02/27/18 02:00 Temperature Pulse Rate 69 79 Respiratory Rate 14 27 H Blood Pressure 173/74 H 179/81 H Pulse Oximetry 95 92 L 87 L 02/27/18 03:00 02/27/18 03:44 02/27/18 03:48 Temperature Pulse Rate 79 74 81 Respiratory Rate 17 24 22 Blood Pressure 164/105 H 164/74 H Pulse Oximetry 85 L 88 L 02/27/18 03:50 02/27/18 04:00 02/27/18 05:00 Temperature Pulse Rate 76 88 Respiratory Rate 25 H 17 Blood Pressure 161/76 H 188/76 H Pulse Oximetry 96 97 89 L 02/27/18 06:00 02/27/18 08:00 02/27/18 08:13 Temperature 98.8 F 98.6 F Pulse Rate 83 78 80 Respiratory Rate 19 24 17 Blood Pressure 190/86 H 170/81 H Pulse Oximetry 94 L 92 L 92 L 02/27/18 10:00 02/27/18 12:00 Temperature 98.4 F Pulse Rate 81 70 Respiratory Rate 23 Blood Pressure 157/75 H Pulse Oximetry 93 L Intake & Output 02/26/18 02/27/18 02/27/18 18:59 06:59 18:59 Intake Total 1530 / 1530 400 / 400 100 / 100 Output Total 1999 1300 / 1300 Balance -470 / -470 -900 / -900 100 / 100 Weight 109 kg Intake: IV 1050 / 1050 100 / 100 100 / 100 NS Inj 1,000 ML @ 84 mls/hr IV. 950 / 950 CONT .[id number] DENICE Rx#:[id number] Maxipime Inj 1,000 MG In NS Inj 100 / 100 100 / 100 100 / 100 100 ML @ 200 mls/hr IV.SIG Q12H [facility] Rx#:[id number] Oral 480 / 480 300 / 300 Output: Stool 0 / 0 Urine/Stool Mix 0 / 0 Urine Amount (Catheter) 1999 1300 / 1300 Indwelling Urethral Catheter 1999 1300 / 1300 Other: Date of Last Bowel Movement 0102/24/18 02/27/18 # Bowel Movements 1 0 1 # Incontinent Bowel Movements 0 - Constitutional no acute distress - Routine HEENT Exam Head: Present: normocephalic Eye: Present: PERRL ENT: Present: mucous membranes moist - Routine Neck Exam Present: full ROM - Routine Respiratory Exam Present: crackles Comments: crackles bilateral lower lobes. - Routine Cardiovascular Exam Present: S1, S2. Absent: gallop, rubs, S3 - Routine Abdominal Exam Present: normoactive bowel sounds - Routine Extremities Exam Present: full ROM, pulses intact, normal capillary refill, amputation. Absent: cyanosis, clubbing, edema Comments: RBKA - Routine Skin Exam Present: intact - Routine Neurological Exam Present: oriented X3 - Detailed Neurological Exam: Coma Scale Eye Opening: Spontaneous Verbal Response: Oriented Motor Response: Obey commands Rodney Coma Scale Total: 15 - Routine Psychiatric Exam Present: normal affect - Urinary Catheter Management Indwelling Urethral Catheter Cath placed during this visit: no Results 02/27/18 05:56 02/27/18 05:56 CBC 02/26/18 02/27/18 Range/Units 04:39 05:56 WBC 9.2 8.3 (4.0-11.0) th/mm3 RBC 3.24 L 3.57 L (4.50-5.90) mil/mm3 Hgb 9.9 L 10.7 L (13.0-17.0) gm/dL Hct 29.5 L 32.5 L (39.0-51.0) % Plt Count 286 288 (150-450) th/mm3 Comprehensive Metabolic Panel 02/26/18 02/27/18 Range/Units 04:39 05:56 Sodium 144 148 H (136-145) meq/L Potassium 4.1 3.9 (3.5-5.1) meq/L Chloride 111 H 112 H (98-107) meq/L Carbon Dioxide 27.9 30.0 (21.0-32.0) meq/L BUN 49 H 24 H (7-18) mg/dL Creatinine 1.92 H 1.01 (0.60-1.30) mg/dL Calcium 8.4 L D 8.6 (8.5-10.1) mg/dL Intake and Output 02/26/18 02/27/18 02/27/18 22:59 06:59 14:59 Intake Total 480 / 480 400 / 400 100 / 100 Output Total 1999 1300 / 1300 Balance -1520 / -1520 -900 / -900 100 / 100 Intake: IV 100 / 100 100 / 100 Maxipime Inj 1,000 MG In NS Inj 100 / 100 100 / 100 100 ML @ 200 mls/hr IV.SIG Q12H [facility] Rx#:[id number] Oral 480 / 480 300 / 300 Output: Stool 0 / 0 Urine/Stool Mix 0 / 0 Urine Amount (Catheter) 1999 1300 / 1300 Indwelling Urethral Catheter 1999 1300 1300 Other: Date of Last Bowel Movement 02/24/18 02/24/18 02/27/18 # Bowel Movements 1 0 1 # Incontinent Bowel Movements 0 Weight 109 kg - Imaging and Cardiology Imaging: Impressions Venous Doppler Study 02/26/18 00:00 CONCLUSION: 1. No deep venous thrombosis. 2. There is occlusive and nonocclusive thrombus in the superficial venous system of the left upper extremity. Occlusive thrombus in the cephalic vein from the antecubital fossa centrally with nonocclusive thrombus in the basilic vein in the region of the antecubital fossa. 3. 2.4 x 2.1 cm benign-appearing cystic structure adjacent to the left subclavian artery and vein. This does not communicate with either vascular structure and appears to be subjacent to a superficial scar where the patient reports prior shrapnel. I suspect that this represents a chronic seroma. Venous Doppler Study 02/26/18 00:00 CONCLUSION: 1. Negative for deep vein thrombosis 2. 1.9 cm complex thyroid nodule Assessment and Plan - Assessment (1) Hypotension Code(s): I95.9 - Hypotension, unspecified Status: Acute (2) Qyiut-yl-sanhvgx kidney injury Code(s): N17.9 - Acute kidney failure, unspecified; N18.9 - Chronic kidney disease, unspecified Status: Acute (3) History of pneumonia Code(s): Z87.01 - Personal history of pneumonia (recurrent) Status: Acute (4) Urinary tract infection Code(s): N39.0 - Urinary tract infection, site not specified Status: Acute (5) Hyperkalemia Code(s): E87.5 - Hyperkalemia Status: Acute (6) CHF (congestive heart failure) Code(s): I50.9 - Heart failure, unspecified Status: Acute (7) Diabetes Code(s): E11.9 - Type 2 diabetes mellitus without complications Status: Acute - Plan Patient's kidney function continues to improve, nephrology evaluation in progress. Patient remains hypertensive, Lisinopril 5mg was started, increase lisinopril and add low dose atenolol. We will continue to monitor patient's blood pressure and adjust as needed. Pulmonary evaluation in progress due to pleural effusions/pneumonia. Continue to increase patient's activity as tolerated. OK to transfer patient to step down from a cardiac standpoint. We will continue to monitor the patient during his hospitalization and f/u in office in 1-2 weeks after discharge from hospital. The patient was seen and evaluated by Dr. Garcia who participated in care, management and decision making. - Attending Attestation Patient seen and examined. I reviewed and agree with the evaluation and plan as presented. Continue adjusting antihypertensive tx. OK to transfer out of ICU. DC home once BP better controlled. Will schedule outpt f/u. (1) Hypotension Qualifiers: Hypotension type: hypotension due to hypovolemia Qualified Code(s): I95.89 - Other hypotension; E86.1 - Hypovolemia (2) Xipmc-jx-suafgqk kidney injury Qualifiers: Acute renal failure type: unspecified (4) Urinary tract infection Qualifiers: Urinary tract infection type: acute cystitis Hematuria presence: without hematuria Qualified Code(s): N30.00 - Acute cystitis without hematuria
[2018-02-27] MEDS ORDERED: Lisinopril 5 MG Tablet PO ONE ×2 (15:08→21:00)
[2018-02-27] MEDS: Atenolol 25 MG Tablet PO SCH (15:32)
[2018-02-27] MEDS ORDERED: Temazepam 15 MG Capsule PO PRN (15:47)
--- NOTE | 2018-02-27 19:21 | P.PNIM ---
Subjective Interval history: Patient laying down in bed. Complains of some shortness of breath. No other complaints from the patient. Physical Exam Vital signs: Vital Signs 02/26/18 19:00 02/26/18 20:00 02/26/18 21:00 Temperature 98.3 F 98.3 F Pulse Rate 80 80 79 Respiratory Rate 14 22 40 H Blood Pressure 148/67 H 164/75 H 164/74 H Pulse Oximetry 94 L 90 L 89 L 02/26/18 21:18 02/26/18 21:20 02/26/18 22:00 Temperature Pulse Rate 74 67 Respiratory Rate 22 13 Blood Pressure 146/64 H Pulse Oximetry 94 L 94 L 02/26/18 23:00 02/27/18 00:00 02/27/18 00:32 Temperature Pulse Rate 67 71 Respiratory Rate 14 28 H Blood Pressure 152/67 H 166/75 H Pulse Oximetry 94 L 92 L 95 02/27/18 01:00 02/27/18 02:00 02/27/18 03:00 Temperature Pulse Rate 69 79 79 Respiratory Rate 14 27 H 17 Blood Pressure 173/74 H 179/81 H 164/105 H Pulse Oximetry 92 L 87 L 85 L 02/27/18 03:44 02/27/18 03:48 02/27/18 03:50 Temperature Pulse Rate 74 81 Respiratory Rate 24 22 Blood Pressure 164/74 H Pulse Oximetry 88 L 96 02/27/18 04:00 02/27/18 05:00 02/27/18 06:00 Temperature 98.8 F Pulse Rate 76 88 83 Respiratory Rate 25 H 17 19 Blood Pressure 161/76 H 188/76 H 190/86 H Pulse Oximetry 97 89 L 94 L 02/27/18 08:00 02/27/18 08:13 02/27/18 10:00 Temperature 98.6 F Pulse Rate 78 80 81 Respiratory Rate 24 17 Blood Pressure 170/81 H Pulse Oximetry 92 L 92 L 02/27/18 12:00 02/27/18 14:00 02/27/18 15:27 Temperature 98.4 F Pulse Rate 70 71 77 Respiratory Rate 23 22 Blood Pressure 157/75 H Pulse Oximetry 93 L 02/27/18 15:55 02/27/18 16:00 02/27/18 18:00 Temperature 98.4 F Pulse Rate 77 61 Respiratory Rate 21 Blood Pressure 166/78 H Pulse Oximetry 92 L 94 L Intake & Output 02/26/18 02/27/18 02/27/18 18:59 06:59 18:59 Intake Total 1530 / 1530 400 / 400 580 / 580 Output Total 1999 1300 / 1300 1035 / 1035 Balance -470 / -470 -900 / -900 -455 / -455 Weight 109 kg Intake: IV 1050 / 1050 100 / 100 100 / 100 NS Inj 1,000 ML @ 84 mls/hr IV. 950 / 950 CONT .[id number] BAS[facility] Rx#:[id number] Maxipime Inj 1,000 MG In NS Inj 100 / 100 100 / 100 100 / 100 100 ML @ 200 mls/hr IV.SIG Q12H [facility] Rx#:[id number] Oral 480 / 480 300 / 300 480 / 480 Output: Stool 0 / 0 Urine/Stool Mix 0 / 0 Urine Amount (Catheter) 1999 1300 / 1300 1035 / 1035 Indwelling Urethral Catheter 1999 1300 / 1300 1035 / 1035 Other: Date of Last Bowel Movement 02/24/18 02/24/18 02/27/18 # Bowel Movements 1 0 1 # Incontinent Bowel Movements 0 Narrative: alert and oriented x 3 S1S2 decreased breath sounds at bases b/l abd soft, nontender, normal bowel sounds right bka, 1+ edema of b/l lower exts No focal neuro deficits. - Urinary Catheter Management Indwelling Urethral Catheter Cath placed during this visit: no Results - Labs CBC & Chem 7: 02/27/18 05:56 02/27/18 05:56 Laboratory Results - last 24 hr 02/26/18 02/27/18 02/27/18 20:08 02:50 05:56 WBC 8.3 RBC 3.57 L Hgb 10.7 L Hct 32.5 L MCV 91.1 MCH 29.9 MCHC 32.8 RDW 14.2 Plt Count 288 MPV 7.8 Sodium Potassium Chloride Carbon Dioxide Anion Gap BUN Creatinine Estimated GFR POC Glucose 176 H 137 H Random Glucose Calcium 02/27/18 02/27/18 02/27/18 05:56 08:11 11:11 WBC RBC Hgb Hct MCV MCH MCHC RDW Plt Count MPV Sodium 148 H Potassium 3.9 Chloride 112 H Carbon Dioxide 30.0 Anion Gap 6 BUN 24 H Creatinine 1.01 Estimated GFR 73 L POC Glucose 136 H 157 H Random Glucose 149 H Calcium 8.6 02/27/18 17:24 WBC RBC Hgb Hct MCV MCH MCHC RDW Plt Count MPV Sodium Potassium Chloride Carbon Dioxide Anion Gap BUN Creatinine Estimated GFR POC Glucose 152 H Random Glucose Calcium Microbiology 02/23/18 17:50 Blood - Peripheral Aerobic Blood Culture - Preliminary No growth in 4 days 02/23/18 17:50 Blood - Peripheral Anaerobic Blood Culture - Preliminary No growth in 4 days 02/23/18 17:45 Blood - Peripheral Aerobic Blood Culture - Preliminary No growth in 4 days 02/23/18 17:45 Blood - Peripheral Anaerobic Blood Culture - Preliminary No growth in 4 days Assessment and Plan - Assessment (1) Mnppn-jr-yfdwypy kidney injury Code(s): N17.9 - Acute kidney failure, unspecified; N18.9 - Chronic kidney disease, unspecified Status: Acute (2) Hyperkalemia Code(s): E87.5 - Hyperkalemia Status: Acute (3) CHF (congestive heart failure) Code(s): I50.9 - Heart failure, unspecified Status: Acute (4) Diabetes Code(s): E11.9 - Type 2 diabetes mellitus without complications Status: Acute - Plan 72 y/o Male admitted for hypotension and Acute Kidney Injury 1. Hypotension resolved, pt now Hypertensive Continue amlodipine, atenolol, Lisinopril dose increased. I will continue to monitor the blood pressure and adjust the medications as needed. Patient is stable and will be transferred to the [facility] floor today. 2. Left upper ext DVT Patient had an u/s which showed an occlusive thrombus of the cephalic vein. Started on eliquis 10mg bid for 7 days then 5mg daily. 3. BETSEY on CKD prerenal 2/2 volume depletion overdiuresis Serum cr 6.1 on admission, now 1.0 BETSEY resolved, likely 2/2 to low blood pressure. U/s kidneys shows echogenicity suggestive of CKD. Nephrology following. 4. Acute Hypoxic respiratory failure 2/2 b/l pleural effusions. 5. COPD on 3L baseline oxygen Patient requiring 6 L of supplemental oxygen, which is more supplemental oxygen over the past few days. CXR from the 5th shows b/l pleural effusions, worse on the right. Will start the patient on iv lasix today. Case discussed with the pulmonary team. If no improvement with diuresis we will discuss with IR for thoracentesis. Continue breathing txs as needed. 6. Nery UTI Start diflucan DVT prophylaxis, pt on eliquis for dvt. (1) Fbkeg-hy-vissfge kidney injury Qualifiers: Acute renal failure type: unspecified
--- NOTE | 2018-02-27 19:32 | P.PNPL ---
Subjective Interval history: 72 YOWM with COPD Ac on ch renal failure, overdiureased Requiring 5LNC On NC No Wheezing No CP Did't sleep well Physical Exam Vital signs: Vital Signs 02/26/18 20:00 02/26/18 21:00 02/26/18 21:18 Temperature 98.3 F Pulse Rate 80 79 74 Respiratory Rate 22 40 H 22 Blood Pressure 164/75 H 164/74 H Pulse Oximetry 90 L 89 L 02/26/18 21:20 02/26/18 22:00 02/26/18 23:00 Temperature Pulse Rate 67 67 Respiratory Rate 13 14 Blood Pressure 146/64 H 152/67 H Pulse Oximetry 94 L 94 L 94 L 02/27/18 00:00 02/27/18 00:32 02/27/18 01:00 Temperature Pulse Rate 71 69 Respiratory Rate 28 H 14 Blood Pressure 166/75 H 173/74 H Pulse Oximetry 92 L 95 92 L 02/27/18 02:00 02/27/18 03:00 02/27/18 03:44 Temperature Pulse Rate 79 79 74 Respiratory Rate 27 H 17 24 Blood Pressure 179/81 H 164/105 H 164/74 H Pulse Oximetry 87 L 85 L 88 L 02/27/18 03:48 02/27/18 03:50 02/27/18 04:00 Temperature Pulse Rate 81 76 Respiratory Rate 22 25 H Blood Pressure 161/76 H Pulse Oximetry 96 97 02/27/18 05:00 02/27/18 06:00 02/27/18 08:00 Temperature 98.8 F 98.6 F Pulse Rate 88 83 78 Respiratory Rate 17 19 24 Blood Pressure 188/76 H 190/86 H 170/81 H Pulse Oximetry 89 L 94 L 92 L 02/27/18 08:13 02/27/18 10:00 02/27/18 12:00 Temperature 98.4 F Pulse Rate 80 81 70 Respiratory Rate 17 23 Blood Pressure 157/75 H Pulse Oximetry 92 L 93 L 02/27/18 14:00 02/27/18 15:27 02/27/18 15:55 Temperature Pulse Rate 71 77 Respiratory Rate 22 Blood Pressure Pulse Oximetry 92 L 02/27/18 16:00 02/27/18 18:00 Temperature 98.4 F Pulse Rate 77 61 Respiratory Rate 21 Blood Pressure 166/78 H Pulse Oximetry 94 L Intake & Output 02/27/18 02/27/18 02/28/18 06:59 18:59 06:59 Intake Total 400 / 400 580 / 580 Output Total 1300 / 1300 1035 / 1035 Balance -900 / -900 -455 / -455 Weight 109 kg Intake: IV 100 / 100 100 / 100 Maxipime Inj 1,000 MG In NS Inj 100 / 100 100 / 100 100 ML @ 200 mls/hr IV.SIG Q12H [facility] Rx#:[id number] Oral 300 / 300 480 / 480 Output: Stool 0 / 0 Urine/Stool Mix 0 / 0 Urine Amount (Catheter) 1300 / 1300 1035 / 1035 Indwelling Urethral Catheter 1300 / 1300 1035 / 1035 Other: Date of Last Bowel Movement 02/24/18 02/27/18 # Bowel Movements 0 1 # Incontinent Bowel Movements 0 GENERAL: Obese WM, NAD SKIN: Warm and dry. HEAD: Normocephalic. EYES: No scleral icterus. No injection or drainage. NECK: Supple, trachea midline. No JVD or lymphadenopathy. CARDIOVASCULAR: Regular rate and rhythm without murmurs, gallops, or rubs. RESPIRATORY: Breath sounds equal bilaterally. No accessory muscle use. GASTROINTESTINAL: Abdomen soft, non-tender, nondistended. MUSCULOSKELETAL: No cyanosis, or edema. BACK: Nontender without obvious deformity. No CVA tenderness. - Urinary Catheter Management Indwelling Urethral Catheter Cath placed during this visit: no Assessment and Plan - Plan IMPRESSION: 1. Chronic obstructive pulmonary disease with mild exacerbation. 2. Acute on chronic renal failure, possible over diuresis. 3. Hyperkalemia, improved. 4. Right BKA. 5. Pleural effusion. PLAN: Supplement 02 aerosol nebs Cont Abx SQ Heparin monitor renal functions CXR in AM Resume home meds, Neurontin 300 mg tid Trazodone 150 mg q HS
[2018-02-27] MEDS: Gabapentin 300 MG Capsule PO SCH (20:17)
[2018-02-27] MEDS: traZODone 100 MG Tablet PO SCH (20:17)
--- NOTE | 2018-02-27 20:22 | P.PNNP ---
Subjective Interval history: Patient seen, alert, has mild nausea, no SOB. Physical Exam Vital signs: Vital Signs 02/26/18 21:00 02/26/18 21:18 02/26/18 21:20 Temperature Pulse Rate 79 74 Respiratory Rate 40 H 22 Blood Pressure 164/74 H Pulse Oximetry 89 L 94 L 02/26/18 22:00 02/26/18 23:00 02/27/18 00:00 Temperature Pulse Rate 67 67 71 Respiratory Rate 13 14 28 H Blood Pressure 146/64 H 152/67 H 166/75 H Pulse Oximetry 94 L 94 L 92 L 02/27/18 00:32 02/27/18 01:00 02/27/18 02:00 Temperature Pulse Rate 69 79 Respiratory Rate 14 27 H Blood Pressure 173/74 H 179/81 H Pulse Oximetry 95 92 L 87 L 02/27/18 03:00 02/27/18 03:44 02/27/18 03:48 Temperature Pulse Rate 79 74 81 Respiratory Rate 17 24 22 Blood Pressure 164/105 H 164/74 H Pulse Oximetry 85 L 88 L 02/27/18 03:50 02/27/18 04:00 02/27/18 05:00 Temperature Pulse Rate 76 88 Respiratory Rate 25 H 17 Blood Pressure 161/76 H 188/76 H Pulse Oximetry 96 97 89 L 02/27/18 06:00 02/27/18 08:00 02/27/18 08:13 Temperature 98.8 F 98.6 F Pulse Rate 83 78 80 Respiratory Rate 19 24 17 Blood Pressure 190/86 H 170/81 H Pulse Oximetry 94 L 92 L 92 L 02/27/18 10:00 02/27/18 12:00 02/27/18 14:00 Temperature 98.4 F Pulse Rate 81 70 71 Respiratory Rate 23 Blood Pressure 157/75 H Pulse Oximetry 93 L 02/27/18 15:27 02/27/18 15:55 02/27/18 16:00 Temperature 98.4 F Pulse Rate 77 77 Respiratory Rate 22 21 Blood Pressure 166/78 H Pulse Oximetry 92 L 94 L 02/27/18 18:00 Temperature Pulse Rate 61 Respiratory Rate Blood Pressure Pulse Oximetry Intake & Output 02/27/18 02/27/18 02/28/18 06:59 18:59 06:59 Intake Total 400 / 400 580 / 580 Output Total 1300 / 1300 1035 / 1035 Balance -900 / -900 -455 / -455 Weight 109 kg Intake: IV 100 / 100 100 / 100 Maxipime Inj 1,000 MG In NS Inj 100 / 100 100 / 100 100 ML @ 200 mls/hr IV.SIG Q12H [facility] Rx#:[id number] Oral 300 / 300 480 / 480 Output: Stool 0 / 0 Urine/Stool Mix 0 / 0 Urine Amount (Catheter) 1299 / 1299 1035 / 1035 Indwelling Urethral Catheter 1299 / 1299 1035 / 1035 Other: Date of Last Bowel Movement 02/24/18 02/27/18 # Bowel Movements 0 1 # Incontinent Bowel Movements 0 Narrative: alert and oriented x 3 S1S2 decreased breath sounds at bases b/l abd soft, nontender, normal bowel sounds right bka, 1+ edema of b/l lower exts No focal neuro deficits. - Urinary Catheter Management Indwelling Urethral Catheter Cath placed during this visit: no Assessment and Plan - Assessment (1) Slnyw-ty-pjkgytv kidney injury Code(s): N17.9 - Acute kidney failure, unspecified; N18.9 - Chronic kidney disease, unspecified Status: Acute Qualifiers: Acute renal failure type: unspecified Plan: Patient with chronic kidney disease and admitted with BETSEY. He was recently discharge from [facility] BETSEY secondary to volume depletion/ over-diuresis Creatinine 1.8 in September of 2017 Creatinine continue to improve and now 1.0. Avoid Nephrotoxins, Follow the urine out put and BMP. I will sign off from Nephrology, see PRN. (2) Hyperkalemia Code(s): E87.5 - Hyperkalemia Status: Acute Plan: 6.1 on admisssion. Improved, continue to monitor (3) CHF (congestive heart failure) Code(s): I50.9 - Heart failure, unspecified Status: Acute Plan: On IVFs now, continue to monitor. (4) Diabetes Code(s): E11.9 - Type 2 diabetes mellitus without complications Status: Acute Plan: Continue to monitor glucose
[2018-02-28] MEDS: Chlorhexidine Gluconate 2% 1 Pack (2 Cloths) TOPICAL SCH (04:30)
[2018-02-28] MEDS: Insulin NovoLOG Aspart Correctional Sugar Inj SQ SCH ×5 (04:30→20:06)
[2018-02-28] MEDS: Artificial Tears Opth Drops 15 ML Bottle EACH EYE SCH ×6 (04:30→23:12)
[2018-02-28 05:09] LABS: Calcium 8.7 mg/dL (8.5-10.1); Carbon Dioxide 32.5 meq/L (21.0-32.0); Magnesium 1.8 mg/dL (1.5-2.5); Potassium 3.9 meq/L (3.5-5.1)
--- NOTE | 2018-02-28 07:44 | XR ---
EXAM DATE: 02/28/2018 7:22 AM EST AGE/SEX: 72 years / Male INDICATIONS: Short of breath. CLINICAL DATA: This is the patient's subsequent encounter. Patient reports that signs and symptoms h ave been present for 1 week and indicates a pain score of Nonresponsive. MEDICAL/SURGICAL HISTORY: Chronic obstructive pulmonary disease. Renal insufficiency, chronic. Hypertension. Diabetes. CHF. Acute kidney injury. . Below the knee amputation. COMPARISON: [facility] – [place], CHEST 1V SINGLE AP, 02/24/2018. . FINDINGS: Increasing consolidative changes in the right lung with increasing right pleural effusion. Mild interstitial edema on the left The heart and pulmonary vascularity are normal. Degenerative changes about both shoulders. CONCLUSION: Increasing consolidative changes and effusion on the right Electronically signed by: Mynor Whiteside MD Board Certified Radiologist 02/28/2018 7:42 AM EST
[2018-02-28] MEDS: Fluconazole 100 MG Tablet PO SCH (08:37)
[2018-02-28] MEDS: amLODIPine 10 MG Tablet PO SCH (08:38)
[2018-02-28] MEDS: Atenolol 25 MG Tablet PO SCH (08:38)
[2018-02-28] MEDS: Senna/Docusate Sodium 8.6/50 MG Tablet PO SCH ×2 (08:39→20:06)
[2018-02-28] MEDS: Gabapentin 300 MG Capsule PO SCH ×3 (08:39→17:07)
[2018-02-28] MEDS ORDERED: Lisinopril 10 MG Tablet PO SCH (09:00)
--- NOTE | 2018-02-28 15:07 | P.PNIM ---
Subjective Interval history: Patient complains of shortness of breath when moving around. Otherwise no complaints. Physical Exam Vital signs: Vital Signs 02/27/18 15:00 02/27/18 15:01 02/27/18 15:27 Temperature Pulse Rate 69 72 77 Respiratory Rate 32 H 29 H 22 Blood Pressure 174/77 H Pulse Oximetry 93 L 94 L 02/27/18 15:55 02/27/18 16:00 02/27/18 16:38 Temperature 98.4 F Pulse Rate 77 62 Respiratory Rate 29 H 20 Blood Pressure 177/84 H 166/78 H Pulse Oximetry 92 L 89 L 93 L 02/27/18 17:00 02/27/18 18:00 02/27/18 19:00 Temperature Pulse Rate 69 61 62 Respiratory Rate 28 H 19 20 Blood Pressure 172/81 H 166/78 H 164/78 H Pulse Oximetry 89 L 88 L 91 L 02/27/18 20:00 02/27/18 20:52 02/27/18 20:53 Temperature 98.6 F Pulse Rate 61 94 H Respiratory Rate 13 21 Blood Pressure 167/79 H Pulse Oximetry 91 L 94 L 02/27/18 21:00 02/27/18 21:01 02/27/18 22:00 Temperature Pulse Rate 55 L 63 68 Respiratory Rate 27 H 32 H 35 H Blood Pressure 144/81 H 173/84 H Pulse Oximetry 98 98 92 L 02/27/18 23:00 02/27/18 23:01 02/28/18 00:00 Temperature 98.6 F Pulse Rate 60 63 56 L Respiratory Rate 22 25 H 19 Blood Pressure 146/70 H 141/65 H Pulse Oximetry 95 95 92 L 02/28/18 00:05 02/28/18 01:00 02/28/18 02:00 Temperature Pulse Rate 56 L 54 L Respiratory Rate 19 21 Blood Pressure 141/66 H 139/65 Pulse Oximetry 96 93 L 90 L 02/28/18 03:00 02/28/18 03:45 02/28/18 04:00 Temperature 98.2 F Pulse Rate 58 L 55 L Respiratory Rate 17 20 Blood Pressure 149/71 H 145/70 H Pulse Oximetry 93 L 94 L 92 L 02/28/18 06:00 02/28/18 08:00 02/28/18 08:54 Temperature 98.2 F Pulse Rate 59 L 59 L Respiratory Rate 28 H Blood Pressure 165/74 H Pulse Oximetry 89 L 92 L 02/28/18 09:00 02/28/18 10:00 02/28/18 11:00 Temperature Pulse Rate 56 L 60 62 Respiratory Rate 24 25 H 37 H Blood Pressure 170/76 H 175/78 H Pulse Oximetry 95 90 L 93 L 02/28/18 11:01 02/28/18 12:00 02/28/18 13:00 Temperature 99 F Pulse Rate 66 57 L 61 Respiratory Rate 29 H 28 H 29 H Blood Pressure 157/79 H 161/76 H 168/74 H Pulse Oximetry 92 L 91 L 92 L 02/28/18 14:00 Temperature Pulse Rate 57 L Respiratory Rate 49 H Blood Pressure Pulse Oximetry 92 L Intake & Output 02/27/18 02/28/18 02/28/18 18:59 06:59 18:59 Intake Total 580 / 580 100 / 100 100 / 100 Output Total 1035 / 1035 600 / 600 Balance -455 / -455 -500 / -500 100 / 100 Weight 109 kg Intake: IV 100 / 100 100 / 100 100 / 100 Maxipime Inj 1,000 MG In NS Inj 100 / 100 100 / 100 100 / 100 100 ML @ 200 mls/hr IV.SIG Q12H BASIL Rx#:[id number] Oral 480 / 480 Output: Urine 600 / 600 Urine Amount (Catheter) 1035 / 1035 Indwelling Urethral Catheter 1035 / 1035 Other: # Voids 3 Date of Last Bowel Movement 02/27/18 02/27/18 02/28/18 # Bowel Movements 1 Narrative: alert and oriented x 3 S1S2 decreased breath sounds at bases b/l abd soft, nontender, normal bowel sounds right bka, 1+ edema of b/l lower exts No focal neuro deficits. - Urinary Catheter Management Indwelling Urethral Catheter Cath placed during this visit: no Results - Labs CBC & Chem 7: 02/27/18 05:56 02/28/18 04:22 Laboratory Results - last 24 hr 02/27/18 02/27/18 02/28/18 17:24 20:14 03:22 Sodium Potassium Chloride Carbon Dioxide Anion Gap BUN Creatinine Estimated GFR POC Glucose 152 H 136 H 114 H Random Glucose Calcium Magnesium 02/28/18 02/28/18 02/28/18 04:22 07:18 11:17 Sodium 147 H Potassium 3.9 Chloride 110 H Carbon Dioxide 32.5 H Anion Gap 5 BUN 17 Creatinine 0.94 Estimated GFR 79 L POC Glucose 133 H 130 H Random Glucose 121 H Calcium 8.7 Magnesium 1.8 Microbiology 02/23/18 17:50 Blood - Peripheral Aerobic Blood Culture - Final No growth in 5 days 02/23/18 17:50 Blood - Peripheral Anaerobic Blood Culture - Final No growth in 5 days 02/23/18 17:45 Blood - Peripheral Aerobic Blood Culture - Final No growth in 5 days 02/23/18 17:45 Blood - Peripheral Anaerobic Blood Culture - Final No growth in 5 days - Imaging Impressions Chest X-Ray 02/28/18 00:00 CONCLUSION: Increasing consolidative changes and effusion on the right Assessment and Plan - Assessment (1) Qeuis-pb-frdamet kidney injury Code(s): N17.9 - Acute kidney failure, unspecified; N18.9 - Chronic kidney disease, unspecified Status: Acute (2) Hyperkalemia Code(s): E87.5 - Hyperkalemia Status: Acute (3) CHF (congestive heart failure) Code(s): I50.9 - Heart failure, unspecified Status: Acute (4) Diabetes Code(s): E11.9 - Type 2 diabetes mellitus without complications Status: Acute - Plan 72 y/o Male admitted for hypotension and Acute Kidney Injury 1. Hypotension resolved, pt now Hypertensive Continue amlodipine, atenolol, Lisinopril dose increased. I will continue to monitor the blood pressure and adjust the medications as needed. Patient is stable and will be transferred to the [facility] floor today. 2. Left upper ext DVT Patient had an u/s which showed an occlusive thrombus of the cephalic vein. Started on eliquis 10mg bid for 7 days then 5mg daily. 3. BETSEY on CKD prerenal 2/2 volume depletion overdiuresis Serum cr 6.1 on admission, now 1.0 BETSEY resolved, likely 2/2 to low blood pressure. U/s kidneys shows echogenicity suggestive of CKD. Nephrology following. 4. Acute Hypoxic respiratory failure 2/2 b/l pleural effusions. 5. COPD on 3L baseline oxygen Patient requiring 6 L of supplemental oxygen, which is more supplemental oxygen over the past few days. CXR from the 02/24/18 shows b/l pleural effusions, worse on the right. Patient given a dose of lasix yesterday. Will give another dose today. Repeat cxr looks worse. Will talk to Pulmonary today for possible thoracentesis. Continue breathing txs as needed. 6. Nery UTI Continue diflucan. DVT prophylaxis, pt on eliquis for dvt. (1) [id number] kidney injury Qualifiers: Acute renal failure type: unspecified
--- NOTE | 2018-02-28 16:37 | P.PNCA ---
Subjective Interval history: Patient denies any CP, pressure, palpitations, dizziness, edema or SOB. Medications and Allergies Active Medications: Active Medications Al Hydroxide/Mg Hydroxide (Milk Of Taj Liq) 30 ml PO Q12H PRN PRN Reason: Mild Constipation Albuterol (Albuterol Neb (Prn)) 2.5 mg NEB Q2HR NEB PRN PRN Reason: SHORTNESS OF BREATH/WHEEZING Amlodipine Besylate (Norvasc) 10 mg PO DAILY COUNT INCLUDES THE [facility] Last Admin: 02/28/18 08:38 Dose: 10 mg Apixaban (Eliquis) 10 mg PO BID COUNT INCLUDES THE [facility] Stop: 03/04/18 23:59 Last Admin: 02/28/18 08:43 Dose: 10 mg Artificial Tears (Tears Naturale Opth Drops) 1 drop EACH EYE Q4H COUNT INCLUDES THE [facility] Last Admin: 02/28/18 15:17 Dose: 1 drop Atenolol (Tenormin) 25 mg PO DAILY COUNT INCLUDES THE [facility] Last Admin: 02/28/18 08:38 Dose: 25 mg Bisacodyl (Dulcolax Supp) 10 mg RECTAL DAILY PRN PRN Reason: SEVERE CONSITIPATION Chlorhexidine Gluconate (Chlorhexidine 2% Cloth) 3 pack TOPICAL DAILY@0400 BASIL Stop: 03/01/18 03:59 Last Admin: 02/28/18 04:30 Dose: 3 pack Chlorhexidine Gluconate (Chlorhexidine 2% Cloth) 3 pack TOPICAL DAILY@0400 PRN PRN Reason: Extra cloth needed Stop: 03/01/18 03:59 Dextrose (D50w Vial) 50 ml IV.PUSH UNSCH PRN PRN Reason: PER HYPOGLYCEMIA PROTOCOL Fluconazole (Diflucan) 150 mg PO DAILY COUNT INCLUDES THE [facility] Last Admin: 02/28/18 08:37 Dose: 150 mg Furosemide (Lasix) 20 mg PO DAILY COUNT INCLUDES THE [facility] Gabapentin (Neurontin) 300 mg PO TID COUNT INCLUDES THE [facility] Last Admin: 02/28/18 13:00 Dose: 300 mg Glucagon (Glucagon Inj) 1 mg OTHER PRN PRN PRN Reason: for Hypoglycemia Protocol Cefepime HCl 1,000 mg/ Sodium (Chloride) 100 mls @ 200 mls/hr IV.SIG Q12H COUNT INCLUDES THE [facility] Last Infusion: 02/28/18 09:21 Dose: Infused Insulin Aspart (Novolog Insulin Correctional Sugar Inj) 0 unit SQ ACHS AND 3AM BASIL; Protocol Last Admin: 02/28/18 11:18 Dose: Not Given Lactulose (Lactulose Liq) 30 ml PO DAILY PRN PRN Reason: SEVERE CONSITIPATION Lisinopril (Prinivil) 10 mg PO DAILY COUNT INCLUDES THE [facility] Last Admin: 02/28/18 08:38 Dose: 10 mg Miscellaneous (Pill Splitter) 1 each OTHER UNSCH PRN PRN Reason: SEE LABEL COMMENTS Ondansetron HCl (Zofran Inj) 4 mg IV.PUSH Q6H PRN PRN Reason: NAUSEA OR VOMITING Last Admin: 02/27/18 17:24 Dose: 4 mg Oxycodone/Acetaminophen (Percocet 5/325 Mg) 1 tab PO Q6H PRN PRN Reason: PAIN SCALE 6 TO 10 Pantoprazole Sodium (Protonix) 40 mg PO DAILY COUNT INCLUDES THE [facility] Last Admin: 02/28/18 08:38 Dose: 40 mg Senna/Docusate Sodium (Jo-Colace) 1 tab PO BID COUNT INCLUDES THE [facility] Last Admin: 02/28/18 08:39 Dose: Not Given Sennosides (Senokot) 17.2 mg PO Q12H PRN PRN Reason: Moderate Constipation Sodium Chloride (Ns Flush) 2 ml IV.FLUSH BID COUNT INCLUDES THE [facility] Last Admin: 02/28/18 08:43 Dose: 2 ml Sodium Chloride (Ns Flush) 2 ml IV.FLUSH PRN PRN PRN Reason: FLUSH AFTER USING IV ACCESS Last Admin: 02/25/18 08:39 Dose: 2 ml Spironolactone (Aldactone) 25 mg PO DAILY COUNT INCLUDES THE [facility] Trazodone HCl (Desyrel) 150 mg PO [facility] Last Admin: 02/27/18 20:17 Dose: 150 mg Allergies Allergy/AdvReac Type Severity Reaction Status Date / Time codeine Allergy Mild Constipatio Verified 02/23/18 17:36 n Home Medications Medication Instructions Recorded Confirmed Type amoxicillin-pot clavulanate 1 tab PO Q12H 02/23/18 02/23/18 History [Augmentin] atenolol [Tenormin] 50 mg PO DAILY 02/23/18 02/23/18 History budesonide-formoterol [Symbicort] 2 puff INHALATION BID 02/23/18 02/23/18 History clopidogrel [Plavix] 75 mg PO DAILY 02/23/18 02/23/18 History cyanocobalamin (vitamin B-12) 1,000 mcg IM QMONTH 02/23/18 02/23/18 History dexamethasone sodium phosphate 4 mg IV QWEEK 02/23/18 02/23/18 History doxazosin 2 mg PO DAILY 02/23/18 02/23/18 History fexofenadine [Shiloh Allergy] 60 mg PO BID 02/23/18 02/23/18 History furosemide [Lasix] 40 mg PO BID 02/23/18 02/23/18 History gabapentin 300 mg PO TID 02/23/18 02/23/18 History glipizide 5 mg PO DAILY 02/23/18 02/23/18 History guaifenesin [Mucinex] 600 mg PO Q12H 02/23/18 02/23/18 History ipratropium-albuterol 3 ml INHALATION QID 02/23/18 02/23/18 History lisinopril 10 mg PO DAILY 02/23/18 02/23/18 History melatonin 3 mg PO HS PRN 02/23/18 02/23/18 History montelukast 10 mg PO QPM 02/23/18 02/23/18 History oxycodone-acetaminophen [Percocet] 1 tab PO Q4H PRN 02/23/18 02/23/18 History pantoprazole [Protonix] 40 mg PO DAILY 02/23/18 02/23/18 History potassium chloride 20 meq PO BID 02/23/18 02/23/18 History propranolol 40 mg PO BID 02/23/18 02/23/18 History ropinirole [Requip] 2 mg PO HS 02/23/18 02/23/18 History sertraline [Zoloft] 50 mg PO DAILY 02/23/18 02/23/18 History trazodone 150 mg PO DAILY 02/23/18 02/23/18 History Physical Exam Vital signs: Vital Signs 02/27/18 16:38 02/27/18 17:00 02/27/18 18:00 Temperature Pulse Rate 62 69 61 Respiratory Rate 20 28 H 19 Blood Pressure 166/78 H 172/81 H 166/78 H Pulse Oximetry 93 L 89 L 88 L 02/27/18 19:00 02/27/18 20:00 02/27/18 20:52 Temperature 98.6 F Pulse Rate 62 61 94 H Respiratory Rate 20 13 21 Blood Pressure 164/78 H 167/79 H Pulse Oximetry 91 L 91 L 02/27/18 20:53 02/27/18 21:00 02/27/18 21:01 Temperature Pulse Rate 55 L 63 Respiratory Rate 27 H 32 H Blood Pressure 144/81 H Pulse Oximetry 94 L 98 98 02/27/18 22:00 02/27/18 23:00 02/27/18 23:01 Temperature Pulse Rate 68 60 63 Respiratory Rate 35 H 22 25 H Blood Pressure 173/84 H 146/70 H Pulse Oximetry 92 L 95 95 02/28/18 00:00 02/28/18 00:05 02/28/18 01:00 Temperature 98.6 F Pulse Rate 56 L 56 L Respiratory Rate 19 19 Blood Pressure 141/65 H 141/66 H Pulse Oximetry 92 L 96 93 L 02/28/18 02:00 02/28/18 03:00 02/28/18 03:45 Temperature Pulse Rate 54 L 58 L Respiratory Rate 21 17 Blood Pressure 139/65 149/71 H Pulse Oximetry 90 L 93 L 94 L 02/28/18 04:00 02/28/18 06:00 02/28/18 08:00 Temperature 98.2 F 98.2 F Pulse Rate 55 L 59 L 59 L Respiratory Rate 20 28 H Blood Pressure 145/70 H 165/74 H Pulse Oximetry 92 L 89 L 02/28/18 08:54 02/28/18 09:00 02/28/18 10:00 Temperature Pulse Rate 56 L 60 Respiratory Rate 24 25 H Blood Pressure 170/76 H 175/78 H Pulse Oximetry 92 L 95 90 L 02/28/18 11:00 02/28/18 11:01 02/28/18 12:00 Temperature 99 F Pulse Rate 62 66 57 L Respiratory Rate 37 H 29 H 28 H Blood Pressure 157/79 H 161/76 H Pulse Oximetry 93 L 92 L 91 L 02/28/18 13:00 02/28/18 14:00 02/28/18 14:01 Temperature Pulse Rate 61 57 L 58 L Respiratory Rate 29 H 49 H Blood Pressure 168/74 H 164/74 H Pulse Oximetry 92 L 92 L 94 L 02/28/18 15:00 02/28/18 15:04 02/28/18 16:00 Temperature 98.1 F Pulse Rate 53 L 54 L 56 L Respiratory Rate 19 19 29 H Blood Pressure 160/70 H 157/74 H Pulse Oximetry 90 L 90 L 91 L Intake & Output 02/27/18 02/28/18 02/28/18 18:59 06:59 18:59 Intake Total 580 / 580 100 / 100 100 / 100 Output Total 1035 / 1035 600 / 600 Balance -455 / -455 -500 / -500 100 / 100 Weight 109 kg Intake: IV 100 / 100 100 / 100 100 / 100 Maxipime Inj 1,000 MG In NS Inj 100 / 100 100 / 100 100 / 100 100 ML @ 200 mls/hr IV.SIG Q12H BASIL Rx#:[id number] Oral 480 / 480 Output: Urine 600 / 600 Urine Amount (Catheter) 1035 / 1035 Indwelling Urethral Catheter 1035 / 1035 Other: # Voids 3 Date of Last Bowel Movement 02/27/18 02/27/18 02/28/18 # Bowel Movements 1 - Constitutional no acute distress - Routine HEENT Exam Head: Present: normocephalic Eye: Present: PERRL ENT: Present: mucous membranes moist - Routine Neck Exam Present: full ROM - Routine Respiratory Exam Present: diminished air movement Comments: diminished in the bases, fine crackles noted in the right lower lobe. - Routine Cardiovascular Exam Present: S1, S2, bradycardia. Absent: murmur, gallop, rubs - Routine Abdominal Exam Present: normoactive bowel sounds - Routine Extremities Exam Present: full ROM, pulses intact, normal capillary refill, amputation. Absent: cyanosis, clubbing, edema Comments: RBKA - Routine Skin Exam Present: intact - Routine Neurological Exam Present: oriented X3 - Detailed Neurological Exam: Coma Scale Eye Opening: Spontaneous Verbal Response: Oriented Motor Response: Obey commands [place] Coma Scale Total: 15 - Routine Psychiatric Exam Present: normal affect - Urinary Catheter Management Indwelling Urethral Catheter Cath placed during this visit: no Results 02/27/18 05:56 02/28/18 04:22 CBC 02/27/18 Range/Units 05:56 WBC 8.3 (4.0-11.0) th/mm3 RBC 3.57 L (4.50-5.90) mil/mm3 Hgb 10.7 L (13.0-17.0) gm/dL Hct 32.5 L (39.0-51.0) % Plt Count 288 (150-450) th/mm3 Comprehensive Metabolic Panel 02/27/18 02/28/18 Range/Units 05:56 04:22 Sodium 148 H 147 H (136-145) meq/L Potassium 3.9 3.9 (3.5-5.1) meq/L Chloride 112 H 110 H (98-107) meq/L Carbon Dioxide 30.0 32.5 H (21.0-32.0) meq/L BUN 24 H 17 (7-18) mg/dL Creatinine 1.01 0.94 (0.60-1.30) mg/dL Calcium 8.6 8.7 (8.5-10.1) mg/dL Intake and Output 02/28/18 02/28/18 02/28/18 06:59 14:59 22:59 Intake Total 100 / 100 Output Total 600 / 600 Balance -600 / -600 100 / 100 Intake: IV 100 / 100 Maxipime Inj 1,000 MG In NS Inj 100 / 100 100 ML @ 200 mls/hr IV.SIG Q12H BASIL Rx#:[id number] Output: Urine 600 / 600 Other: # Voids 3 Date of Last Bowel Movement 02/27/18 02/28/18 02/28/18 Weight 109 kg - Imaging and Cardiology Imaging: Impressions Chest X-Ray 02/28/18 00:00 CONCLUSION: Increasing consolidative changes and effusion on the right Assessment and Plan - Assessment (1) Hypotension Code(s): I95.9 - Hypotension, unspecified Status: Acute (2) Fyoqh-qr-uznbwdm kidney injury Code(s): N17.9 - Acute kidney failure, unspecified; N18.9 - Chronic kidney disease, unspecified Status: Acute (3) History of pneumonia Code(s): Z87.01 - Personal history of pneumonia (recurrent) Status: Acute (4) Urinary tract infection Code(s): N39.0 - Urinary tract infection, site not specified Status: Acute (5) Hyperkalemia Code(s): E87.5 - Hyperkalemia Status: Acute (6) CHF (congestive heart failure) Code(s): I50.9 - Heart failure, unspecified Status: Acute (7) Diabetes Code(s): E11.9 - Type 2 diabetes mellitus without complications Status: Acute - Plan Patient continues to be hypertensive, will increase Lisinopril to 20mg PO QD. Nephrology evaluation in progress, kidney function continues to improve. Chest x-ray done this am to evaluate pulmonary status, pulmonary evaluation in progress. Continue to increase patient's activity as tolerated. OK to transfer patient to step down from a cardiac standpoint. We will continue to monitor the patient during his hospitalization and f/u in office in 1-2 weeks after discharge from hospital. The patient was seen and evaluated by Dr. Garcia who participated in care, management and decision making. (1) Hypotension Qualifiers: Hypotension type: hypotension due to hypovolemia Qualified Code(s): I95.89 - Other hypotension; E86.1 - Hypovolemia (2) Amzce-sn-znambtd kidney injury Qualifiers: Acute renal failure type: unspecified (4) Urinary tract infection Qualifiers: Urinary tract infection type: acute cystitis Hematuria presence: without hematuria Qualified Code(s): N30.00 - Acute cystitis without hematuria
[2018-02-28] MEDS: traZODone 100 MG Tablet PO SCH (20:06)
--- NOTE | 2018-02-28 20:09 | P.PNPL ---
Subjective Interval history: 72 YOWM with COPD Ac on ch renal failure, overdiureased Requiring 5LNC On NC No Wheezing No CP CXr increased Rt pl effusion Physical Exam Vital signs: Vital Signs 02/27/18 20:52 02/27/18 20:53 02/27/18 21:00 Temperature Pulse Rate 94 H 55 L Respiratory Rate 21 27 H Blood Pressure Pulse Oximetry 94 L 98 02/27/18 21:01 02/27/18 22:00 02/27/18 23:00 Temperature Pulse Rate 63 68 60 Respiratory Rate 32 H 35 H 22 Blood Pressure 144/81 H 173/84 H Pulse Oximetry 98 92 L 95 02/27/18 23:01 02/28/18 00:00 02/28/18 00:05 Temperature 98.6 F Pulse Rate 63 56 L Respiratory Rate 25 H 19 Blood Pressure 146/70 H 141/65 H Pulse Oximetry 95 92 L 96 02/28/18 01:00 02/28/18 02:00 02/28/18 03:00 Temperature Pulse Rate 56 L 54 L 58 L Respiratory Rate 19 21 17 Blood Pressure 141/66 H 139/65 149/71 H Pulse Oximetry 93 L 90 L 93 L 02/28/18 03:45 02/28/18 04:00 02/28/18 06:00 Temperature 98.2 F Pulse Rate 55 L 59 L Respiratory Rate 20 Blood Pressure 145/70 H Pulse Oximetry 94 L 92 L 02/28/18 08:00 02/28/18 08:54 02/28/18 09:00 Temperature 98.2 F Pulse Rate 59 L 56 L Respiratory Rate 28 H 24 Blood Pressure 165/74 H 170/76 H Pulse Oximetry 89 L 92 L 95 02/28/18 10:00 02/28/18 11:00 02/28/18 11:01 Temperature Pulse Rate 60 62 66 Respiratory Rate 25 H 37 H 29 H Blood Pressure 175/78 H 157/79 H Pulse Oximetry 90 L 93 L 92 L 02/28/18 12:00 02/28/18 13:00 02/28/18 14:00 Temperature 99 F Pulse Rate 57 L 61 57 L Respiratory Rate 28 H 29 H 49 H Blood Pressure 161/76 H 168/74 H Pulse Oximetry 91 L 92 L 92 L 02/28/18 14:01 02/28/18 15:00 02/28/18 15:04 Temperature Pulse Rate 58 L 53 L 54 L Respiratory Rate 19 19 Blood Pressure 164/74 H 160/70 H Pulse Oximetry 94 L 90 L 90 L 02/28/18 16:00 02/28/18 17:00 02/28/18 18:00 Temperature 98.1 F Pulse Rate 56 L 55 L 55 L Respiratory Rate 29 H 30 H 27 H Blood Pressure 157/74 H 154/89 H 164/77 H Pulse Oximetry 91 L 92 L 91 L Intake & Output 02/28/18 02/28/18 03/01/18 06:59 18:59 06:59 Intake Total 100 / 100 600 / 600 Output Total 600 / 600 570 / 570 Balance -500 / -500 30 Weight 109 kg Intake: IV 100 / 100 100 / 100 Maxipime Inj 1,000 MG In NS Inj 100 / 100 100 / 100 100 ML @ 200 mls/hr IV.SIG Q12H BASIL Rx#:[id number] Oral 500 / 500 Output: Urine 600 / 600 570 / 570 Other: # Voids 3 # Incontinent Voids 1 Date of Last Bowel Movement 02/27/18 02/28/18 # Bowel Movements 2 GENERAL: Obese WM, mild sob SKIN: Warm and dry. HEAD: Normocephalic. EYES: No scleral icterus. No injection or drainage. NECK: Supple, trachea midline. No JVD or lymphadenopathy. CARDIOVASCULAR: Regular rate and rhythm without murmurs, gallops, or rubs. RESPIRATORY: Breath sounds equal bilaterally. No accessory muscle use. Decreased BS rt GASTROINTESTINAL: Abdomen soft, non-tender, nondistended. MUSCULOSKELETAL: No cyanosis, or edema. BACK: Nontender without obvious deformity. No CVA tenderness. - Urinary Catheter Management Indwelling Urethral Catheter Cath placed during this visit: no Assessment and Plan - Plan IMPRESSION: 1. Chronic obstructive pulmonary disease with mild exacerbation. 2. Acute on chronic renal failure, possible over diuresis. 3. Hyperkalemia, improved. 4. Right BKA. 5. Pleural effusion. PLAN: Supplement 02 aerosol nebs Cont Abx SQ Heparin monitor renal functions Resume home meds, Neurontin 300 mg tid Trazodone 150 mg q HS US guided rt Thoracentesis
[2018-03-01] MEDS: Artificial Tears Opth Drops 15 ML Bottle EACH EYE SCH ×6 (03:50→23:08)
[2018-03-01] MEDS: Insulin NovoLOG Aspart Correctional Sugar Inj SQ SCH ×5 (03:50→21:39)
[2018-03-01 06:36] LABS: Calcium 8.7 mg/dL (8.5-10.1); Carbon Dioxide 32.6 meq/L (21.0-32.0); Potassium 3.7 meq/L (3.5-5.1)
[2018-03-01] MEDS ORDERED: Lisinopril 20 MG Tablet PO SCH (09:00)
[2018-03-01] MEDS: Fluconazole 100 MG Tablet PO SCH (09:12)
[2018-03-01] MEDS: Spironolactone 25 MG Tablet PO SCH (09:12)
[2018-03-01] MEDS: Furosemide 20 MG Tablet PO SCH (09:13)
[2018-03-01] MEDS: Atenolol 25 MG Tablet PO SCH (09:13)
[2018-03-01] MEDS: amLODIPine 10 MG Tablet PO SCH (09:13)
[2018-03-01] MEDS: Gabapentin 300 MG Capsule PO SCH ×3 (09:13→17:56)
[2018-03-01] MEDS: Senna/Docusate Sodium 8.6/50 MG Tablet PO SCH ×2 (10:41→21:39)
--- NOTE | 2018-03-01 10:58 | P.PNCA ---
Subjective Interval history: Patient denies any CP, pressure, palpitations, dizziness or edema. Patient does complain of mild SOB. Medications and Allergies Allergies Allergy/AdvReac Type Severity Reaction Status Date / Time codeine Allergy Mild Constipatio Verified 02/23/18 17:36 n Home Medications Medication Instructions Recorded Confirmed Type amoxicillin-pot clavulanate 1 tab PO Q12H 02/23/18 02/23/18 History [Augmentin] atenolol [Tenormin] 50 mg PO DAILY 02/23/18 02/23/18 History budesonide-formoterol [Symbicort] 2 puff INHALATION BID 02/23/18 02/23/18 History clopidogrel [Plavix] 75 mg PO DAILY 02/23/18 02/23/18 History cyanocobalamin (vitamin B-12) 1,000 mcg IM QMONTH 02/23/18 02/23/18 History dexamethasone sodium phosphate 4 mg IV QWEEK 02/23/18 02/23/18 History doxazosin 2 mg PO DAILY 02/23/18 02/23/18 History fexofenadine [Shiloh Allergy] 60 mg PO BID 02/23/18 02/23/18 History furosemide [Lasix] 40 mg PO BID 02/23/18 02/23/18 History gabapentin 300 mg PO TID 02/23/18 02/23/18 History glipizide 5 mg PO DAILY 02/23/18 02/23/18 History guaifenesin [Mucinex] 600 mg PO Q12H 02/23/18 02/23/18 History ipratropium-albuterol 3 ml INHALATION QID 02/23/18 02/23/18 History lisinopril 10 mg PO DAILY 02/23/18 02/23/18 History melatonin 3 mg PO HS PRN 02/23/18 02/23/18 History montelukast 10 mg PO QPM 02/23/18 02/23/18 History oxycodone-acetaminophen [Percocet] 1 tab PO Q4H PRN 02/23/18 02/23/18 History pantoprazole [Protonix] 40 mg PO DAILY 02/23/18 02/23/18 History potassium chloride 20 meq PO BID 02/23/18 02/23/18 History propranolol 40 mg PO BID 02/23/18 02/23/18 History ropinirole [Requip] 2 mg PO HS 02/23/18 02/23/18 History sertraline [Zoloft] 50 mg PO DAILY 02/23/18 02/23/18 History trazodone 150 mg PO DAILY 02/23/18 02/23/18 History Active Medications: Active Medications Al Hydroxide/Mg Hydroxide (Milk Of Magnesia Liq) 30 ml PO Q12H PRN PRN Reason: Mild Constipation Albuterol (Albuterol Neb (Prn)) 2.5 mg NEB Q2HR NEB PRN PRN Reason: SHORTNESS OF BREATH/WHEEZING Amlodipine Besylate (Norvasc) 10 mg PO DAILY [facility] Last Admin: 03/01/18 09:13 Dose: 10 mg Apixaban (Eliquis) 10 mg PO BID [facility] Stop: 03/04/18 23:59 Last Admin: 03/01/18 10:41 Dose: Not Given Artificial Tears (Tears Naturale Opth Drops) 1 drop EACH EYE Q4H [facility] Last Admin: 03/01/18 10:41 Dose: 1 drop Atenolol (Tenormin) 25 mg PO DAILY [facility] Last Admin: 03/01/18 09:13 Dose: 25 mg Bisacodyl (Dulcolax Supp) 10 mg RECTAL DAILY PRN PRN Reason: SEVERE CONSITIPATION Dextrose (D50w Vial) 50 ml IV.PUSH UNSCH PRN PRN Reason: PER HYPOGLYCEMIA PROTOCOL Fluconazole (Diflucan) 150 mg PO DAILY [facility] Last Admin: 03/01/18 09:12 Dose: 150 mg Furosemide (Lasix) 20 mg PO DAILY [facility] Last Admin: 03/01/18 09:13 Dose: 20 mg Gabapentin (Neurontin) 300 mg PO TID [facility] Last Admin: 03/01/18 09:13 Dose: 300 mg Glucagon (Glucagon Inj) 1 mg OTHER PRN PRN PRN Reason: for Hypoglycemia Protocol Cefepime HCl 1,000 mg/ Sodium (Chloride) 100 mls @ 200 mls/hr IV.SIG Q12H [facility] Last Admin: 03/01/18 09:13 Dose: 200 mls/hr Insulin Aspart (Novolog Insulin Correctional Sugar Inj) 0 unit SQ ACHS AND 3AM BASIL; Protocol Last Admin: 03/01/18 09:28 Dose: Not Given Lactulose (Lactulose Liq) 30 ml PO DAILY PRN PRN Reason: SEVERE CONSITIPATION Lisinopril (Prinivil) 20 mg PO DAILY [facility] Last Admin: 03/01/18 09:13 Dose: 20 mg Miscellaneous (Pill Splitter) 1 each OTHER UNSCH PRN PRN Reason: SEE LABEL COMMENTS Ondansetron HCl (Zofran Inj) 4 mg IV.PUSH Q6H PRN PRN Reason: NAUSEA OR VOMITING Last Admin: 02/27/18 17:24 Dose: 4 mg Oxycodone/Acetaminophen (Percocet 5/325 Mg) 1 tab PO Q6H PRN PRN Reason: PAIN SCALE 6 TO 10 Last Admin: 02/28/18 17:07 Dose: 1 tab Pantoprazole Sodium (Protonix) 40 mg PO DAILY [facility] Last Admin: 03/01/18 09:13 Dose: 40 mg Senna/Docusate Sodium (Jo-Colace) 1 tab PO BID [facility] Last Admin: 03/01/18 10:41 Dose: Not Given Sennosides (Senokot) 17.2 mg PO Q12H PRN PRN Reason: Moderate Constipation Sodium Chloride (Ns Flush) 2 ml IV.FLUSH BID [facility] Last Admin: 03/01/18 10:41 Dose: 2 ml Sodium Chloride (Ns Flush) 2 ml IV.FLUSH PRN PRN PRN Reason: FLUSH AFTER USING IV ACCESS Last Admin: 02/25/18 08:39 Dose: 2 ml Spironolactone (Aldactone) 25 mg PO DAILY [facility] Last Admin: 03/01/18 09:12 Dose: 25 mg Trazodone HCl (Desyrel) 150 mg PO [facility] Last Admin: 02/28/18 20:06 Dose: 150 mg Physical Exam Vital signs: Vital Signs 02/28/18 11:00 02/28/18 11:01 02/28/18 12:00 Temperature 99 F Pulse Rate 62 66 57 L Respiratory Rate 37 H 29 H 28 H Blood Pressure 157/79 H 161/76 H Pulse Oximetry 93 L 92 L 91 L 02/28/18 13:00 02/28/18 14:00 02/28/18 14:01 Temperature Pulse Rate 61 57 L 58 L Respiratory Rate 29 H 49 H Blood Pressure 168/74 H 164/74 H Pulse Oximetry 92 L 92 L 94 L 02/28/18 15:00 02/28/18 15:04 02/28/18 16:00 Temperature 98.1 F Pulse Rate 53 L 54 L 56 L Respiratory Rate 19 19 29 H Blood Pressure 160/70 H 157/74 H Pulse Oximetry 90 L 90 L 91 L 02/28/18 17:00 02/28/18 18:00 02/28/18 19:00 Temperature Pulse Rate 55 L 55 L 55 L Respiratory Rate 30 H 27 H 29 H Blood Pressure 154/89 H 164/77 H Pulse Oximetry 92 L 91 L 92 L 02/28/18 19:01 02/28/18 20:00 02/28/18 20:59 Temperature 98.2 F Pulse Rate 56 L 56 L Respiratory Rate 28 H 33 H Blood Pressure 152/70 H 162/72 H Pulse Oximetry 93 L 90 L 92 L 02/28/18 21:00 02/28/18 21:01 02/28/18 22:00 Temperature Pulse Rate 56 L 56 L 48 L Respiratory Rate 26 H 28 H 16 Blood Pressure 148/69 H Pulse Oximetry 91 L 91 L 93 L 02/28/18 22:01 02/28/18 23:00 03/01/18 00:00 Temperature 98.4 F Pulse Rate 49 L 45 L 46 L Respiratory Rate 16 16 15 Blood Pressure 119/60 121/58 L 134/65 Pulse Oximetry 94 L 92 L 95 03/01/18 01:00 03/01/18 02:00 03/01/18 02:01 Temperature Pulse Rate 45 L 48 L 50 L Respiratory Rate 14 25 H 20 Blood Pressure 130/62 154/74 H Pulse Oximetry 93 L 93 L 95 03/01/18 03:00 03/01/18 03:01 03/01/18 04:00 Temperature 98.6 F Pulse Rate 47 L 48 L 49 L Respiratory Rate 15 16 14 Blood Pressure 133/63 Pulse Oximetry 94 L 96 92 L 03/01/18 04:01 03/01/18 05:00 03/01/18 05:01 Temperature Pulse Rate 49 L 48 L 48 L Respiratory Rate 15 16 16 Blood Pressure 165/72 H 141/66 H Pulse Oximetry 94 L 93 L 94 L 03/01/18 06:00 03/01/18 06:01 03/01/18 08:21 Temperature Pulse Rate 57 L 59 L Respiratory Rate 24 24 Blood Pressure 189/86 H Pulse Oximetry 92 L 93 L 94 L Intake & Output 02/28/18 03/01/18 03/01/18 18:59 06:59 18:59 Intake Total 600 / 600 500 / 500 Output Total 570 / 570 375 / 375 Balance 30 / 30 125 / 125 Weight 107 kg Intake: IV 100 / 100 100 / 100 Maxipime Inj 1,000 MG In NS Inj 100 / 100 100 / 100 100 ML @ 200 mls/hr IV.SIG Q12H BASIL Rx#:[id number] Oral 500 / 500 400 / 400 Output: Urine 570 / 570 375 / 375 Other: # Incontinent Voids 1 Date of Last Bowel Movement 02/28/18 02/28/18 # Bowel Movements 2 0 - Constitutional no acute distress - Routine HEENT Exam Head: Present: normocephalic Eye: Present: PERRL ENT: Present: mucous membranes moist - Routine Neck Exam Present: full ROM - Routine Respiratory Exam Present: decreased breath sounds, crackles - Routine Cardiovascular Exam Present: S1, S2, bradycardia. Absent: gallop, rubs - Routine Abdominal Exam Present: normoactive bowel sounds - Routine Extremities Exam Present: full ROM, pulses intact, normal capillary refill, amputation. Absent: cyanosis, clubbing, edema Comments: RBKA - Routine Skin Exam Present: intact - Routine Neurological Exam Present: oriented X3 - Detailed Neurological Exam: Coma Scale Eye Opening: Spontaneous Verbal Response: Oriented Motor Response: Obey commands [place] Coma Scale Total: 15 - Routine Psychiatric Exam Present: normal affect - Urinary Catheter Management Indwelling Urethral Catheter Cath placed during this visit: no Results 02/27/18 05:56 03/01/18 05:20 Comprehensive Metabolic Panel 02/28/18 03/01/18 Range/Units 04:22 05:20 Sodium 147 H 145 (136-145) meq/L Potassium 3.9 3.7 (3.5-5.1) meq/L Chloride 110 H 106 (98-107) meq/L Carbon Dioxide 32.5 H 32.6 H (21.0-32.0) meq/L BUN 17 18 (7-18) mg/dL Creatinine 0.94 0.91 (0.60-1.30) mg/dL Calcium 8.7 8.7 (8.5-10.1) mg/dL Intake and Output 0103/01/18 03/01/18 22:59 06:59 14:59 Intake Total 500 / 500 500 / 500 Output Total 570 / 570 375 / 375 Balance -70 / -70 125 / 125 Intake: IV 100 / 100 Maxipime Inj 1,000 MG In NS Inj 100 / 100 100 ML @ 200 mls/hr IV.SIG Q12H BASIL Rx#:[id number] Oral 500 / 500 400 / 400 Output: Urine 570 / 570 375 / 375 Other: # Incontinent Voids 1 Date of Last Bowel Movement 02/28/18 02/28/18 # Bowel Movements 2 0 Weight 107 kg - Imaging and Cardiology Imaging: Impressions Chest X-Ray 02/28/18 00:00 CONCLUSION: Increasing consolidative changes and effusion on the right Assessment and Plan - Assessment (1) Hypotension Code(s): I95.9 - Hypotension, unspecified Status: Acute (2) Tdcph-ok-kllxejr kidney injury Code(s): N17.9 - Acute kidney failure, unspecified; N18.9 - Chronic kidney disease, unspecified Status: Acute (3) History of pneumonia Code(s): Z87.01 - Personal history of pneumonia (recurrent) Status: Acute (4) Urinary tract infection Code(s): N39.0 - Urinary tract infection, site not specified Status: Acute (5) Hyperkalemia Code(s): E87.5 - Hyperkalemia Status: Acute (6) CHF (congestive heart failure) Code(s): I50.9 - Heart failure, unspecified Status: Acute (7) Diabetes Code(s): E11.9 - Type 2 diabetes mellitus without complications Status: Acute - Plan Patient is scheduled for a thoracentesis, pulmonary evaluation and treatment in progress. Continue CHF treatment including diuretics. Patient continues to be hypertensive, we will increase his lisinopril to 40mg daily and recheck the BMP daily. Continue to increase patient's activity as tolerated. OK to transfer patient to step down from a cardiac standpoint. We will continue to monitor the patient during his hospitalization and f/u in office in 1-2 weeks after discharge from the hospital. The patient was seen and evaluated by Dr. Garcia who participated in care, management and decision making. - Attending Attestation Patient seen and examined. I reviewed and agree with the evaluation and plan as presented. Continue diuresis. Thoracentesis as planned. Increase activity, PT. Hopefully will be ready for discharge back to [facility] within 48-72 hrs. (1) Hypotension Qualifiers: Hypotension type: hypotension due to hypovolemia Qualified Code(s): I95.89 - Other hypotension; E86.1 - Hypovolemia (2) Ypkio-is-rtpqnnd kidney injury Qualifiers: Acute renal failure type: unspecified (4) Urinary tract infection Qualifiers: Urinary tract infection type: acute cystitis Hematuria presence: without hematuria Qualified Code(s): N30.00 - Acute cystitis without hematuria
[2018-03-01 11:40] LABS: INR 1.4 Ratio; Prothrombin Time 14.6 sec (9.8-11.6)
--- NOTE | 2018-03-01 16:50 | P.PNIM ---
Subjective Interval history: Patient in no acute distress while on supplemental oxygen. Physical Exam Vital signs: Vital Signs 02/28/18 17:00 02/28/18 18:00 02/28/18 19:00 Temperature Pulse Rate 55 L 55 L 55 L Respiratory Rate 30 H 27 H 29 H Blood Pressure 154/89 H 164/77 H Pulse Oximetry 92 L 91 L 92 L 02/28/18 19:01 02/28/18 20:00 02/28/18 20:59 Temperature 98.2 F Pulse Rate 56 L 56 L Respiratory Rate 28 H 33 H Blood Pressure 152/70 H 162/72 H Pulse Oximetry 93 L 90 L 92 L 02/28/18 21:00 02/28/18 21:01 02/28/18 22:00 Temperature Pulse Rate 56 L 56 L 48 L Respiratory Rate 26 H 28 H 16 Blood Pressure 148/69 H Pulse Oximetry 91 L 91 L 93 L 02/28/18 22:01 02/28/18 23:00 03/01/18 00:00 Temperature 98.4 F Pulse Rate 49 L 45 L 46 L Respiratory Rate 16 16 15 Blood Pressure 119/60 121/58 L 134/65 Pulse Oximetry 94 L 92 L 95 03/01/18 01:00 03/01/18 02:00 03/01/18 02:01 Temperature Pulse Rate 45 L 48 L 50 L Respiratory Rate 14 25 H 20 Blood Pressure 130/62 154/74 H Pulse Oximetry 93 L 93 L 95 03/01/18 03:00 03/01/18 03:01 03/01/18 04:00 Temperature 98.6 F Pulse Rate 47 L 48 L 49 L Respiratory Rate 15 16 14 Blood Pressure 133/63 Pulse Oximetry 94 L 96 92 L 03/01/18 04:01 03/01/18 05:00 03/01/18 05:01 Temperature Pulse Rate 49 L 48 L 48 L Respiratory Rate 15 16 16 Blood Pressure 165/72 H 141/66 H Pulse Oximetry 94 L 93 L 94 L 03/01/18 06:00 03/01/18 06:01 03/01/18 07:00 Temperature 98.9 F Pulse Rate 57 L 59 L 59 L Respiratory Rate 24 24 22 Blood Pressure 189/86 H Pulse Oximetry 92 L 93 L 92 L 03/01/18 07:01 03/01/18 08:00 03/01/18 08:21 Temperature Pulse Rate 60 56 L Respiratory Rate 28 H 26 H Blood Pressure 177/84 H 160/77 H Pulse Oximetry 92 L 91 L 94 L 03/01/18 09:00 03/01/18 10:00 03/01/18 11:00 Temperature Pulse Rate 55 L 59 L 53 L Respiratory Rate 21 24 27 H Blood Pressure 169/79 H 187/81 H Pulse Oximetry 91 L 93 L 93 L 03/01/18 11:01 03/01/18 12:00 03/01/18 12:01 Temperature Pulse Rate 55 L 53 L 53 L Respiratory Rate 27 H 27 H 23 Blood Pressure 167/77 H 164/77 H Pulse Oximetry 92 L 93 L 93 L 03/01/18 13:00 03/01/18 14:00 03/01/18 14:01 Temperature Pulse Rate 53 L 51 L 51 L Respiratory Rate 27 H 26 H 26 H Blood Pressure 176/79 H 156/76 H Pulse Oximetry 91 L 92 L 93 L 03/01/18 16:00 Temperature Pulse Rate 55 L Respiratory Rate 14 Blood Pressure Pulse Oximetry Intake & Output 02/28/18 03/01/18 03/01/18 18:59 06:59 18:59 Intake Total 600 / 600 500 / 500 100 / 100 Output Total 570 / 570 375 / 375 Balance 30 / 30 125 / 125 100 / 100 Weight 107 kg Intake: IV 100 / 100 100 / 100 100 / 100 Maxipime Inj 1,000 MG In NS Inj 100 / 100 100 / 100 100 / 100 100 ML @ 200 mls/hr IV.SIG Q12H BASIL Rx#:[id number] Oral 500 / 500 400 / 400 Output: Urine 570 / 570 375 / 375 Other: # Incontinent Voids 1 Date of Last Bowel Movement 02/28/18 02/28/18 02/28/18 # Bowel Movements 2 0 Narrative: Patient is awake and alert x 3 S1S2 Decreased breath sounds at the right base. Right bka, 1+ edema of the left lower ext neuro, no focal neurological deficits - Urinary Catheter Management Indwelling Urethral Catheter Cath placed during this visit: no Results - Labs CBC & Chem 7: 02/27/18 05:56 03/01/18 05:20 Laboratory Results - last 24 hr 02/28/18 02/28/18 03/01/18 16:49 19:49 03:20 PT INR Sodium Potassium Chloride Carbon Dioxide Anion Gap BUN Creatinine Estimated GFR POC Glucose 114 H 131 H 118 H Random Glucose Calcium 03/01/18 03/01/18 03/01/18 05:20 09:18 10:56 PT 14.6 H INR 1.4 Sodium 145 Potassium 3.7 Chloride 106 Carbon Dioxide 32.6 H Anion Gap 6 BUN 18 Creatinine 0.91 Estimated GFR 82 L POC Glucose 115 H Random Glucose 113 H Calcium 8.7 03/01/18 12:23 PT INR Sodium Potassium Chloride Carbon Dioxide Anion Gap BUN Creatinine Estimated GFR POC Glucose 122 H Random Glucose Calcium Assessment and Plan - Assessment (1) Xfkxr-bo-mhlwcfx kidney injury Code(s): N17.9 - Acute kidney failure, unspecified; N18.9 - Chronic kidney disease, unspecified Status: Acute (2) Hyperkalemia Code(s): E87.5 - Hyperkalemia Status: Acute (3) CHF (congestive heart failure) Code(s): I50.9 - Heart failure, unspecified Status: Acute (4) Diabetes Code(s): E11.9 - Type 2 diabetes mellitus without complications Status: Acute - Plan 72 y/o Male admitted for hypotension and Acute Kidney Injury. Patient was found to have b/l pleural effusions worse on the right. 1. Hypotension resolved, pt now Hypertensive Continue amlodipine, atenolol dose increased, continue Lisinopril I will continue to monitor the blood pressure and adjust the medications as needed. Patient is stable and will be transferred to the [facility] floor today. 2. Left upper ext DVT Patient had an u/s which showed an occlusive thrombus of the cephalic vein. Started on eliquis 10mg bid for 7 days then 5mg daily. Eliquis held today for thoracentesis scheduled tomorrow am. 3. BETSEY on CKD prerenal 2/2 volume depletion overdiuresis Serum cr 6.1 on admission, wnl BETSEY resolved, likely 2/2 to low blood pressure. U/s kidneys shows echogenicity suggestive of CKD. Nephrology following. 4. Acute Hypoxic respiratory failure 2/2 b/l pleural effusions. 5. COPD on 3L baseline oxygen Patient requiring 6 L of supplemental oxygen, which is more supplemental oxygen over the past few days. Titrate off of supplemental oxygen, keep oxygen sat above 92%, patient uses 2-3 L at baseline. CXR from the 02/24/18 shows b/l pleural effusions, worse on the right. Patient given a dose of lasix yesterday. Will give another dose today. Repeat cxr looks worse. Patient scheduled for thoracentesis tomorrow am. Continue breathing txs as needed. DVT prophylaxis, pt on eliquis for dvt....held for thoracentesis tomorrow. (1) Qwkyi-yq-qwjtmwi kidney injury Qualifiers: Acute renal failure type: unspecified
--- NOTE | 2018-03-01 20:02 | P.PNPL ---
Subjective Interval history: 72 YOWM with COPD Ac on ch renal failure, overdiureased Requiring 5LNC On NC No Wheezing No CP, sleeps betetr CXr increased Rt pl effusion Eliquis on hold Physical Exam Vital signs: Vital Signs 02/28/18 20:59 02/28/18 21:00 02/28/18 21:01 Temperature Pulse Rate 56 L 56 L Respiratory Rate 26 H 28 H Blood Pressure 148/69 H Pulse Oximetry 92 L 91 L 91 L 02/28/18 22:00 02/28/18 22:01 02/28/18 23:00 Temperature Pulse Rate 48 L 49 L 45 L Respiratory Rate 16 16 16 Blood Pressure 119/60 121/58 L Pulse Oximetry 93 L 94 L 92 L 03/01/18 00:00 03/01/18 01:00 03/01/18 02:00 Temperature 98.4 F Pulse Rate 46 L 45 L 48 L Respiratory Rate 15 14 25 H Blood Pressure 134/65 130/62 Pulse Oximetry 95 93 L 93 L 03/01/18 02:01 03/01/18 03:00 03/01/18 03:01 Temperature Pulse Rate 50 L 47 L 48 L Respiratory Rate 20 15 16 Blood Pressure 154/74 H 133/63 Pulse Oximetry 95 94 L 96 03/01/18 04:00 03/01/18 04:01 03/01/18 05:00 Temperature 98.6 F Pulse Rate 49 L 49 L 48 L Respiratory Rate 14 15 16 Blood Pressure 165/72 H Pulse Oximetry 92 L 94 L 93 L 03/01/18 05:01 03/01/18 06:00 03/01/18 06:01 Temperature Pulse Rate 48 L 57 L 59 L Respiratory Rate 16 24 24 Blood Pressure 141/66 H 189/86 H Pulse Oximetry 94 L 92 L 93 L 03/01/18 07:00 03/01/18 07:01 03/01/18 08:00 Temperature 98.9 F Pulse Rate 59 L 60 56 L Respiratory Rate 22 28 H 26 H Blood Pressure 177/84 H 160/77 H Pulse Oximetry 92 L 92 L 91 L 03/01/18 08:21 03/01/18 09:00 03/01/18 10:00 Temperature Pulse Rate 55 L 59 L Respiratory Rate 21 24 Blood Pressure 169/79 H 187/81 H Pulse Oximetry 94 L 91 L 93 L 03/01/18 11:00 03/01/18 11:01 03/01/18 12:00 Temperature Pulse Rate 53 L 55 L 53 L Respiratory Rate 27 H 27 H 27 H Blood Pressure 167/77 H Pulse Oximetry 93 L 92 L 93 L 03/01/18 12:01 03/01/18 13:00 03/01/18 14:00 Temperature Pulse Rate 53 L 53 L 51 L Respiratory Rate 23 27 H 26 H Blood Pressure 164/77 H 176/79 H Pulse Oximetry 93 L 91 L 92 L 03/01/18 14:01 03/01/18 15:00 03/01/18 16:00 Temperature 97.6 F Pulse Rate 51 L 49 L 51 L Respiratory Rate 26 H 26 H 30 H Blood Pressure 156/76 H 160/76 H Pulse Oximetry 93 L 90 L 91 L 03/01/18 16:01 03/01/18 17:00 03/01/18 17:01 Temperature Pulse Rate 52 L 54 L 54 L Respiratory Rate 31 H 29 H 29 H Blood Pressure 171/78 H 149/70 H Pulse Oximetry 92 L 95 93 L 03/01/18 18:00 Temperature Pulse Rate 57 L Respiratory Rate 32 H Blood Pressure 143/69 H Pulse Oximetry 88 L Intake & Output 03/01/18 03/01/18 03/02/18 06:59 18:59 06:59 Intake Total 500 / 500 700 / 700 Output Total 375 / 375 700 / 700 Balance 125 / 125 0 / 0 Weight 107 kg Intake: IV 100 / 100 100 / 100 Maxipime Inj 1,000 MG In NS Inj 100 / 100 100 / 100 100 ML @ 200 mls/hr IV.SIG Q12H BASIL Rx#:[id number] Oral 400 / 400 600 / 600 Output: Urine 375 / 375 700 / 700 Other: Date of Last Bowel Movement 02/28/18 03/01/18 # Bowel Movements 0 # Incontinent Bowel Movements 1 GENERAL: Obese WM, NAD SKIN: Warm and dry. HEAD: Normocephalic. EYES: No scleral icterus. No injection or drainage. NECK: Supple, trachea midline. No JVD or lymphadenopathy. CARDIOVASCULAR: Regular rate and rhythm without murmurs, gallops, or rubs. RESPIRATORY: Breath sounds equal bilaterally. No accessory muscle use. Decreased BS rt GASTROINTESTINAL: Abdomen soft, non-tender, nondistended. MUSCULOSKELETAL: No cyanosis, or edema. BACK: Nontender without obvious deformity. No CVA tenderness. - Urinary Catheter Management Indwelling Urethral Catheter Cath placed during this visit: no Assessment and Plan - Plan IMPRESSION: 1. Chronic obstructive pulmonary disease with mild exacerbation. 2. Acute on chronic renal failure, possible over diuresis. 3. Hyperkalemia, improved. 4. Right BKA. 5. Pleural effusion. PLAN: Supplement 02 aerosol nebs Cont Abx SQ Heparin monitor renal functions Resume home meds, Neurontin 300 mg tid Trazodone 150 mg q HS US guided rt Thoracentesis in AM
[2018-03-01] MEDS: traZODone 100 MG Tablet PO SCH (21:05)
[2018-03-02] MEDS: Artificial Tears Opth Drops 15 ML Bottle EACH EYE SCH ×6 (03:25→22:40)
[2018-03-02] MEDS: Insulin NovoLOG Aspart Correctional Sugar Inj SQ SCH ×5 (03:35→20:23)
[2018-03-02 07:22] LABS: Calcium 8.6 mg/dL (8.5-10.1); Carbon Dioxide 34.4 meq/L (21.0-32.0); Potassium 3.8 meq/L (3.5-5.1)
[2018-03-02] MEDS: Furosemide 20 MG Tablet PO SCH (08:56)
[2018-03-02] MEDS: Lisinopril 20 MG Tablet PO SCH (08:56)
[2018-03-02] MEDS: Gabapentin 300 MG Capsule PO SCH ×3 (08:56→17:05)
[2018-03-02] MEDS: amLODIPine 10 MG Tablet PO SCH (08:56)
[2018-03-02] MEDS: Spironolactone 25 MG Tablet PO SCH (08:56)
[2018-03-02] MEDS: Atenolol 25 MG Tablet PO SCH (09:00)
--- NOTE | 2018-03-02 10:22 | US ---
EXAM DATE: 03/02/2018 10:20 AM EST AGE/SEX: 72 years / Male INDICATIONS: Right pleural effusion. CLINICAL DATA: This is the patient's initial encounter. Patient reports that signs and symptoms have been present for 1 day and indicates a pain score of 0/10. MEDICAL/SURGICAL HISTORY: . Renal insufficiency, chronic. Chronic obstructive pulmonary disease . Hypertension. Diabetes. CHF. Acute kidney injury. . Below the knee amputation. COMPARISON: No prior exams available for comparison. FLUID: Total volume of 18 cc of clear, green fluid was removed. Fluid was sent to lab for ordered studies. . . TECHNIQUE: Ultrasound guidance for thoracentesis. Thoracentesis. The risks, benefits, and alternatives to ultrasound guided thoracentesis were explained to the patien t in lay simple terms, including the risk of bleeding and infection. Written and verbal informed con sent was obtained. Appropriate area for right thoracentesis was marked under ultrasound guidance with the patient in the upright position. Overlying skin was prepped and draped in the usual sterile fashion and with local anesthetic, a dermatotomy was made with an 11 blade scalpel. A 6 Persian thoracentesis catheter was placed in the pleural space and fluid was removed. Catheter was then removed and a sterile dressing applied. There were no immediate complications. The patient tolerated the procedure well and the lef t the ultrasound suite in stable condition. Chest radiograph is to be obtained. FINDINGS: Minimal fluid CONCLUSION: Uncomplicated thoracentesis. Electronically signed by: Alfred Tatum MD Board Certified Radiologist 03/02/2018 10:21 AM EST
--- NOTE | 2018-03-02 10:24 | XR ---
EXAM DATE: 03/02/2018 10:21 AM EST AGE/SEX: 72 years / Male INDICATIONS: Status post right sided thoracentesis. CLINICAL DATA: This is the patient's initial encounter. Patient reports that signs and symptoms have been present for 1 day and indicates a pain score of 0/10. MEDICAL/SURGICAL HISTORY: Chronic obstructive pulmonary disease. Congestive heart failure. Di abetes. Hypertension. None. COMPARISON: [facility] [place], CHEST 1V SINGLE AP, 02/28/2018. . FINDINGS: There is persistent dense consolidation and significant effusion involving the right chest. Mild flores hilar and left base parenchymal opacity also noted. Visualized cardiac contours are grossly unchanged . CONCLUSION: No significant interval change Electronically signed by: Alfred Tatum MD Board Certified Radiologist 03/02/2018 10:23 AM EST
[2018-03-02] MEDS: Senna/Docusate Sodium 8.6/50 MG Tablet PO SCH ×2 (10:41→20:24)
[2018-03-02 11:02] LABS: Total Protein,Pleural Fluid 3.1 gm/dL
[2018-03-02 11:52] LABS: Lymphocytes,Pleural Fluid 93 %; Monocytes,Pleural Fluid 1 %; Neutrophils,Pleural Fluid 4 %; RBC,Pleural Fluid 7312 /mm3 (0-0)
--- NOTE | 2018-03-02 13:24 | P.PNIM ---
Subjective Interval history: Patient sitting upright in bed. He says he wants to go back to the ID because he will lose his bed. He says he is currently comfortable on supplemental oxygen. Physical Exam Vital signs: Vital Signs 03/01/18 14:00 03/01/18 14:01 03/01/18 15:00 Temperature Pulse Rate 51 L 51 L 49 L Respiratory Rate 26 H 26 H 26 H Blood Pressure 156/76 H 160/76 H Pulse Oximetry 92 L 93 L 90 L 03/01/18 16:00 03/01/18 16:01 03/01/18 17:00 Temperature 97.6 F Pulse Rate 51 L 52 L 54 L Respiratory Rate 30 H 31 H 29 H Blood Pressure 171/78 H Pulse Oximetry 91 L 92 L 95 03/01/18 17:01 03/01/18 18:00 03/01/18 19:00 Temperature Pulse Rate 54 L 57 L 53 L Respiratory Rate 29 H 32 H 30 H Blood Pressure 149/70 H 143/69 H 150/71 H Pulse Oximetry 93 L 88 L 88 L 03/01/18 19:45 03/01/18 20:00 03/01/18 21:00 Temperature 96.6 F L Pulse Rate 53 L 55 L Respiratory Rate 26 H 29 H Blood Pressure 155/71 H Pulse Oximetry 92 L 92 L 90 L 03/01/18 21:01 03/01/18 21:50 03/01/18 22:00 Temperature Pulse Rate 58 L 44 L Respiratory Rate 29 H 16 17 Blood Pressure 166/77 H Pulse Oximetry 92 L 93 L 03/01/18 22:01 03/01/18 23:00 03/01/18 23:01 Temperature Pulse Rate 45 L 46 L 45 L Respiratory Rate 16 33 H 20 Blood Pressure 134/63 156/72 H Pulse Oximetry 94 L 93 L 96 03/02/18 00:00 03/02/18 00:01 03/02/18 01:00 Temperature 98.4 F Pulse Rate 42 L 42 L 44 L Respiratory Rate 15 15 15 Blood Pressure 131/62 153/71 H Pulse Oximetry 94 L 95 92 L 03/02/18 02:00 03/02/18 02:01 03/02/18 03:00 Temperature Pulse Rate 43 L 43 L 49 L Respiratory Rate 14 14 29 H Blood Pressure 138/65 165/78 H Pulse Oximetry 93 L 95 90 L 03/02/18 04:00 03/02/18 04:01 03/02/18 05:00 Temperature 98.6 F Pulse Rate 49 L 47 L 53 L Respiratory Rate 21 19 23 Blood Pressure 154/73 H Pulse Oximetry 92 L 94 L 89 L 03/02/18 05:01 03/02/18 06:00 03/02/18 06:01 Temperature Pulse Rate 52 L 60 60 Respiratory Rate 32 H 26 H 29 H Blood Pressure 140/66 183/86 H Pulse Oximetry 89 L 91 L 92 L 03/02/18 07:00 03/02/18 07:01 03/02/18 08:00 Temperature Pulse Rate 51 L 51 L 51 L Respiratory Rate 23 23 23 Blood Pressure 162/75 H 187/81 H Pulse Oximetry 95 95 94 L 03/02/18 08:07 03/02/18 09:00 03/02/18 09:01 Temperature Pulse Rate 55 L 57 L Respiratory Rate 33 H 37 H Blood Pressure 193/88 H Pulse Oximetry 95 96 92 L 03/02/18 09:50 03/02/18 10:00 03/02/18 10:26 Temperature 98.0 F Pulse Rate 62 61 60 Respiratory Rate 24 27 H 27 H Blood Pressure 180/83 H 146/72 H Pulse Oximetry 92 L 92 L 87 L 03/02/18 10:30 03/02/18 10:45 03/02/18 11:00 Temperature Pulse Rate 60 56 L 52 L Respiratory Rate 29 H 28 H 24 Blood Pressure 156/77 H 145/71 H 146/73 H Pulse Oximetry 88 L 91 L 93 L 03/02/18 11:15 03/02/18 11:30 Temperature Pulse Rate 50 L 51 L Respiratory Rate 22 38 H Blood Pressure 148/73 H 151/74 H Pulse Oximetry 93 L 93 L Intake & Output 03/01/18 03/02/18 03/02/18 18:59 06:59 18:59 Intake Total 700 / 700 220 / 220 100 / 100 Output Total 700 / 700 175 / 175 Balance 0 / 0 45 / 45 100 / 100 Weight 104.2 kg Intake: IV 100 / 100 100 / 100 100 / 100 Maxipime Inj 1,000 MG In NS Inj 100 / 100 100 / 100 100 / 100 100 ML @ 200 mls/hr IV.SIG Q12H [facility] Rx#:[id number] Oral 600 / 600 120 / 120 Output: Urine 700 / 700 175 / 175 Other: Date of Last Bowel Movement 03/01/18 03/01/18 # Bowel Movements 0 # Incontinent Bowel Movements 1 Narrative: Patient is awake and alert x 3 S1S2 Decreased breath sounds at the right base. Right bka, 1+ edema of the left lower ext neuro, no focal neurological deficits - Urinary Catheter Management Indwelling Urethral Catheter Cath placed during this visit: no Results - Labs CBC & Chem 7: 02/27/18 05:56 03/02/18 05:04 Laboratory Results - last 24 hr 03/01/18 03/01/18 03/02/18 16:49 19:47 03:34 Sodium Potassium Chloride Carbon Dioxide Anion Gap BUN Creatinine Estimated GFR POC Glucose 129 H 149 H 108 Random Glucose Calcium Pleural RBC Pleural Nuc Cells Pleural Neutrophils Pleural Lymphocytes Pleural Monocytes Pleural Histocytes Pleural Total Protein Pleural LDH Pleural Glucose 03/02/18 03/02/18 03/02/18 05:04 10:00 10:00 Sodium 144 Potassium 3.8 Chloride 106 Carbon Dioxide 34.4 H Anion Gap 4 L BUN 16 Creatinine 0.89 Estimated GFR 84 L POC Glucose Random Glucose 115 H Calcium 8.6 Pleural RBC 7312 H Pleural Nuc Cells 514 H Pleural Neutrophils 4 Pleural Lymphocytes 93 Pleural Monocytes 1 Pleural Histocytes 2 Pleural Total Protein 3.1 Pleural LDH 237 Pleural Glucose 101 03/02/18 12:17 Sodium Potassium Chloride Carbon Dioxide Anion Gap BUN Creatinine Estimated GFR POC Glucose 165 H Random Glucose Calcium Pleural RBC Pleural Nuc Cells Pleural Neutrophils Pleural Lymphocytes Pleural Monocytes Pleural Histocytes Pleural Total Protein Pleural LDH Pleural Glucose - Imaging Impressions Chest X-Ray 03/02/18 00:00 CONCLUSION: No significant interval change Thoracentesis Ultrasound 03/02/18 00:00 CONCLUSION: Uncomplicated thoracentesis. Assessment and Plan - Assessment (1) [id number] kidney injury Code(s): N17.9 - Acute kidney failure, unspecified; N18.9 - Chronic kidney disease, unspecified Status: Acute (2) Hyperkalemia Code(s): E87.5 - Hyperkalemia Status: Acute (3) CHF (congestive heart failure) Code(s): I50.9 - Heart failure, unspecified Status: Acute (4) Diabetes Code(s): E11.9 - Type 2 diabetes mellitus without complications Status: Acute - Plan 72 y/o Male admitted for hypotension and Acute Kidney Injury. Patient was found to have b/l pleural effusions worse on the right. 1. Hypotension resolved, pt now Hypertensive Continue amlodipine, atenolol dose increased, continue Lisinopril I will continue to monitor the blood pressure and adjust the medications as needed. Patient is stable and will be transferred to the [facility] floor today. 2. Left upper ext DVT Patient had an u/s which showed an occlusive thrombus of the cephalic vein. Started on eliquis 10mg bid for 7 days then 5mg daily. Eliquis restarted for tonight. 3. BETSEY on CKD prerenal 2/2 volume depletion overdiuresis Serum cr 6.1 on admission, wnl BETSEY resolved, likely 2/2 to low blood pressure. U/s kidneys shows echogenicity suggestive of CKD. Nephrology following. 4. Acute Hypoxic respiratory failure 2/2 b/l pleural effusions. 5. COPD on 3L baseline oxygen Patient requiring 5L of supplemental oxygen, which is more supplemental oxygen over the past few days. Patient underwent thoracentesis today with only 18cc of greenish fluid. Titrate off of supplemental oxygen, keep oxygen sat above 92%, patient uses 2-3 L at baseline. CXR from the 02/24/18 shows b/l pleural effusions, worse on the right. CT chest ordered. Will discuss with Dr. Julio today regarding the patient's right sided effusion seen on cxr. Continue breathing txs as needed. DVT prophylaxis, pt on eliquis for dvt. (1) Khlnr-[id number] kidney injury Qualifiers: Acute renal failure type: unspecified
--- NOTE | 2018-03-02 14:40 | P.PNCA ---
Subjective Interval history: Patient denies any CP, pressure, palpitations, dizziness, edema or SOB. Medications and Allergies Allergies Allergy/AdvReac Type Severity Reaction Status Date / Time codeine Allergy Mild Constipatio Verified 02/23/18 17:36 n Home Medications Medication Instructions Recorded Confirmed Type amoxicillin-pot clavulanate 1 tab PO Q12H 02/23/18 02/23/18 History [Augmentin] atenolol [Tenormin] 50 mg PO DAILY 02/23/18 02/23/18 History budesonide-formoterol [Symbicort] 2 puff INHALATION BID 02/23/18 02/23/18 History clopidogrel [Plavix] 75 mg PO DAILY 02/23/18 02/23/18 History cyanocobalamin (vitamin B-12) 1,000 mcg IM QMONTH 02/23/18 02/23/18 History dexamethasone sodium phosphate 4 mg IV QWEEK 02/23/18 02/23/18 History doxazosin 2 mg PO DAILY 02/23/18 02/23/18 History fexofenadine [Shiloh Allergy] 60 mg PO BID 02/23/18 02/23/18 History furosemide [Lasix] 40 mg PO BID 02/23/18 02/23/18 History gabapentin 300 mg PO TID 02/23/18 02/23/18 History glipizide 5 mg PO DAILY 02/23/18 02/23/18 History guaifenesin [Mucinex] 600 mg PO Q12H 02/23/18 02/23/18 History ipratropium-albuterol 3 ml INHALATION QID 02/23/18 02/23/18 History lisinopril 10 mg PO DAILY 02/23/18 02/23/18 History melatonin 3 mg PO HS PRN 02/23/18 02/23/18 History montelukast 10 mg PO QPM 02/23/18 02/23/18 History oxycodone-acetaminophen [Percocet] 1 tab PO Q4H PRN 02/23/18 02/23/18 History pantoprazole [Protonix] 40 mg PO DAILY 02/23/18 02/23/18 History potassium chloride 20 meq PO BID 02/23/18 02/23/18 History propranolol 40 mg PO BID 02/23/18 02/23/18 History ropinirole [Requip] 2 mg PO HS 02/23/18 02/23/18 History sertraline [Zoloft] 50 mg PO DAILY 02/23/18 02/23/18 History trazodone 150 mg PO DAILY 02/23/18 02/23/18 History Active Medications: Active Medications Al Hydroxide/Mg Hydroxide (Milk Of Magnesia Liq) 30 ml PO Q12H PRN PRN Reason: Mild Constipation Albuterol (Albuterol Neb (Prn)) 2.5 mg NEB Q2HR NEB PRN PRN Reason: SHORTNESS OF BREATH/WHEEZING Amlodipine Besylate (Norvasc) 10 mg PO DAILY [facility] Last Admin: 03/02/18 08:56 Dose: 10 mg Apixaban (Eliquis) 10 mg PO BID [facility] Stop: 03/04/18 23:59 Last Admin: 03/01/18 10:41 Dose: Not Given Artificial Tears (Tears Naturale Opth Drops) 1 drop EACH EYE Q4H [facility] Last Admin: 03/02/18 14:18 Dose: 1 drop Atenolol (Tenormin) 50 mg PO DAILY [facility] Last Admin: 03/02/18 09:00 Dose: 50 mg Bisacodyl (Dulcolax Supp) 10 mg RECTAL DAILY PRN PRN Reason: SEVERE CONSITIPATION Dextrose (D50w Vial) 50 ml IV.PUSH UNSCH PRN PRN Reason: PER HYPOGLYCEMIA PROTOCOL Furosemide (Lasix) 20 mg PO DAILY [facility] Last Admin: 03/02/18 08:56 Dose: 20 mg Gabapentin (Neurontin) 300 mg PO TID [facility] Last Admin: 03/02/18 14:18 Dose: 300 mg Glucagon (Glucagon Inj) 1 mg OTHER PRN PRN PRN Reason: for Hypoglycemia Protocol Cefepime HCl 1,000 mg/ Sodium (Chloride) 100 mls @ 200 mls/hr IV.SIG Q12H [facility] Last Infusion: 03/02/18 10:41 Dose: Infused Insulin Aspart (Novolog Insulin Correctional Sugar Inj) 0 unit SQ ACHS AND 3AM BASIL; Protocol Last Admin: 03/02/18 14:18 Dose: Not Given Lactulose (Lactulose Liq) 30 ml PO DAILY PRN PRN Reason: SEVERE CONSITIPATION Lisinopril (Prinivil) 40 mg PO DAILY [facility] Last Admin: 03/02/18 08:56 Dose: 40 mg Miscellaneous (Pill Splitter) 1 each OTHER UNSCH PRN PRN Reason: SEE LABEL COMMENTS Ondansetron HCl (Zofran Inj) 4 mg IV.PUSH Q6H PRN PRN Reason: NAUSEA OR VOMITING Last Admin: 02/27/18 17:24 Dose: 4 mg Oxycodone/Acetaminophen (Percocet 5/325 Mg) 1 tab PO Q6H PRN PRN Reason: PAIN SCALE 6 TO 10 Last Admin: 03/02/18 14:18 Dose: 1 tab Pantoprazole Sodium (Protonix) 40 mg PO DAILY [facility] Last Admin: 03/02/18 08:56 Dose: 40 mg Senna/Docusate Sodium (Jo-Colace) 1 tab PO BID [facility] Last Admin: 03/02/18 10:41 Dose: Not Given Sennosides (Senokot) 17.2 mg PO Q12H PRN PRN Reason: Moderate Constipation Sodium Chloride (Ns Flush) 2 ml IV.FLUSH BID [facility] Last Admin: 03/02/18 08:59 Dose: 2 ml Sodium Chloride (Ns Flush) 2 ml IV.FLUSH PRN PRN PRN Reason: FLUSH AFTER USING IV ACCESS Last Admin: 02/25/18 08:39 Dose: 2 ml Spironolactone (Aldactone) 25 mg PO DAILY [facility] Last Admin: 03/02/18 08:56 Dose: 25 mg Trazodone HCl (Desyrel) 150 mg PO HS [facility] Last Admin: 03/01/18 21:05 Dose: 150 mg Physical Exam Vital signs: Vital Signs 03/01/18 15:00 03/01/18 16:00 03/01/18 16:01 Temperature 97.6 F Pulse Rate 49 L 51 L 52 L Respiratory Rate 26 H 30 H 31 H Blood Pressure 160/76 H 171/78 H Pulse Oximetry 90 L 91 L 92 L 03/01/18 17:00 03/01/18 17:01 03/01/18 18:00 Temperature Pulse Rate 54 L 54 L 57 L Respiratory Rate 29 H 29 H 32 H Blood Pressure 149/70 H 143/69 H Pulse Oximetry 95 93 L 88 L 03/01/18 19:00 03/01/18 19:45 03/01/18 20:00 Temperature 96.6 F L Pulse Rate 53 L 53 L Respiratory Rate 30 H 26 H Blood Pressure 150/71 H 155/71 H Pulse Oximetry 88 L 92 L 92 L 03/01/18 21:00 03/01/18 21:01 03/01/18 21:50 Temperature Pulse Rate 55 L 58 L Respiratory Rate 29 H 29 H 16 Blood Pressure 166/77 H Pulse Oximetry 90 L 92 L 03/01/18 22:00 03/01/18 22:01 03/01/18 23:00 Temperature Pulse Rate 44 L 45 L 46 L Respiratory Rate 17 16 33 H Blood Pressure 134/63 Pulse Oximetry 93 L 94 L 93 L 03/01/18 23:01 03/02/18 00:00 03/02/18 00:01 Temperature 98.4 F Pulse Rate 45 L 42 L 42 L Respiratory Rate 20 15 15 Blood Pressure 156/72 H 131/62 Pulse Oximetry 96 94 L 95 03/02/18 01:00 03/02/18 02:00 03/02/18 02:01 Temperature Pulse Rate 44 L 43 L 43 L Respiratory Rate 15 14 14 Blood Pressure 153/71 H 138/65 Pulse Oximetry 92 L 93 L 95 03/02/18 03:00 03/02/18 04:00 03/02/18 04:01 Temperature 98.6 F Pulse Rate 49 L 49 L 47 L Respiratory Rate 29 H 21 19 Blood Pressure 165/78 H 154/73 H Pulse Oximetry 90 L 92 L 94 L 03/02/18 05:00 03/02/18 05:01 03/02/18 06:00 Temperature Pulse Rate 53 L 52 L 60 Respiratory Rate 23 32 H 26 H Blood Pressure 140/66 Pulse Oximetry 89 L 89 L 91 L 03/02/18 06:01 03/02/18 07:00 03/02/18 07:01 Temperature Pulse Rate 60 51 L 51 L Respiratory Rate 29 H 23 23 Blood Pressure 183/86 H 162/75 H Pulse Oximetry 92 L 95 95 03/02/18 08:00 03/02/18 08:07 03/02/18 09:00 Temperature Pulse Rate 51 L 55 L Respiratory Rate 23 33 H Blood Pressure 187/81 H Pulse Oximetry 94 L 95 96 03/02/18 09:01 03/02/18 09:50 03/02/18 10:00 Temperature 98.0 F Pulse Rate 57 L 62 51 L Respiratory Rate 37 H 24 27 H Blood Pressure 193/88 H 180/83 H Pulse Oximetry 92 L 92 L 92 L 03/02/18 10:26 03/02/18 10:30 03/02/18 10:45 Temperature Pulse Rate 60 60 56 L Respiratory Rate 27 H 29 H 28 H Blood Pressure 146/72 H 156/77 H 145/71 H Pulse Oximetry 87 L 88 L 91 L 03/02/18 11:00 03/02/18 11:15 03/02/18 11:30 Temperature Pulse Rate 52 L 50 L 51 L Respiratory Rate 24 22 38 H Blood Pressure 146/73 H 148/73 H 151/74 H Pulse Oximetry 93 L 93 L 93 L Intake & Output 03/01/18 03/02/18 03/02/18 18:59 06:59 18:59 Intake Total 700 / 700 220 / 220 100 / 100 Output Total 700 / 700 175 / 175 Balance 0 / 0 45 / 45 100 / 100 Weight 104.2 kg Intake: IV 100 / 100 100 / 100 100 / 100 Maxipime Inj 1,000 MG In NS Inj 100 / 100 100 / 100 100 / 100 100 ML @ 200 mls/hr IV.SIG Q12H [facility] Rx#:[id number] Oral 600 / 600 120 / 120 Output: Urine 700 / 700 175 / 175 Other: Date of Last Bowel Movement 03/01/18 03/01/18 03/01/18 # Bowel Movements 0 # Incontinent Bowel Movements 1 - Constitutional no acute distress - Routine HEENT Exam Head: Present: normocephalic Eye: Present: PERRL ENT: Present: mucous membranes moist - Routine Neck Exam Present: full ROM - Routine Respiratory Exam Present: CTA bilaterally Comments: diminished bases - Routine Cardiovascular Exam Present: S1, S2, bradycardia - Routine Abdominal Exam Present: normoactive bowel sounds - Routine Extremities Exam Present: full ROM, pulses intact, normal capillary refill. Absent: cyanosis, clubbing, edema Comments: RBKA - Routine Skin Exam Present: intact - Routine Neurological Exam Present: oriented X3 - Detailed Neurological Exam: Coma Scale Eye Opening: Spontaneous Verbal Response: Oriented Motor Response: Obey commands [place] Coma Scale Total: 15 - Routine Psychiatric Exam Present: normal affect - Urinary Catheter Management Indwelling Urethral Catheter Cath placed during this visit: no Results 02/27/18 05:56 03/02/18 05:04 Coagulation 03/01/18 Range/Units 10:56 PT 14.6 H (9.8-11.6) sec Comprehensive Metabolic Panel 03/01/18 03/02/18 Range/Units 05:20 05:04 Sodium 145 144 (136-145) meq/L Potassium 3.7 3.8 (3.5-5.1) meq/L Chloride 106 106 (98-107) meq/L Carbon Dioxide 32.6 H 34.4 H (21.0-32.0) meq/L BUN 18 16 (7-18) mg/dL Creatinine 0.91 0.89 (0.60-1.30) mg/dL Calcium 8.7 8.6 (8.5-10.1) mg/dL Intake and Output 03/01/18 03/02/18 03/02/18 22:59 06:59 14:59 Intake Total 700 / 700 120 / 120 100 / 100 Output Total 700 / 700 175 / 175 Balance 0 / 0 -55 / -55 100 / 100 Intake: IV 100 / 100 100 / 100 Maxipime Inj 1,000 MG In NS Inj 100 / 100 100 / 100 100 ML @ 200 mls/hr IV.SIG Q12H [facility] Rx#:[id number] Oral 600 / 600 120 / 120 Output: Urine 700 / 700 175 / 175 Other: Date of Last Bowel Movement 03/01/18 03/01/18 03/01/18 # Bowel Movements 0 # Incontinent Bowel Movements 1 Weight 104.2 kg - Imaging and Cardiology Imaging: Impressions Chest X-Ray 03/02/18 00:00 CONCLUSION: No significant interval change Thoracentesis Ultrasound 03/02/18 00:00 CONCLUSION: Uncomplicated thoracentesis. Assessment and Plan - Assessment (1) Hypotension Code(s): I95.9 - Hypotension, unspecified Status: Acute (2) Clrvk-up-sacwfgj kidney injury Code(s): N17.9 - Acute kidney failure, unspecified; N18.9 - Chronic kidney disease, unspecified Status: Acute (3) History of pneumonia Code(s): Z87.01 - Personal history of pneumonia (recurrent) Status: Acute (4) Urinary tract infection Code(s): N39.0 - Urinary tract infection, site not specified Status: Acute (5) Hyperkalemia Code(s): E87.5 - Hyperkalemia Status: Acute (6) CHF (congestive heart failure) Code(s): I50.9 - Heart failure, unspecified Status: Acute (7) Diabetes Code(s): E11.9 - Type 2 diabetes mellitus without complications Status: Acute - Plan Patient remains hypertensive, continue to adjust antihypertensive tx. Thoracentesis done yesterday, 18cc of fluid removed and sent to Lab, pulmonary evaluation in progress. There have been no new cardiac issues at this time. We will continue to monitor patient during hospitalization. Continue to increase patient's activity as tolerated. OK to transfer patient to step down from a cardiac standpoint. We will continue to monitor the patient during his hospitalization and f/u in office in 1-2 weeks after discharge from the hospital. The patient was seen and evaluated by Dr. Garcia who participated in care, management and decision making. - Attending Attestation Patient seen and examined. I reviewed and agree with the evaluation and plan as presented. Continue diuresis and antihypertensive tx. OK to transfer to floor with tele. Plan to discharge within 48-72 hrs back to [facility]. (1) Hypotension Qualifiers: Hypotension type: hypotension due to hypovolemia Qualified Code(s): I95.89 - Other hypotension; E86.1 - Hypovolemia (2) Fhyoo-hm-fwrnsvi kidney injury Qualifiers: Acute renal failure type: unspecified (4) Urinary tract infection Qualifiers: Urinary tract infection type: acute cystitis Hematuria presence: without hematuria Qualified Code(s): N30.00 - Acute cystitis without hematuria
--- NOTE | 2018-03-02 17:48 | P.PNPL ---
Subjective Interval history: 72 YOWM with COPD Ac on ch renal failure, overdiureased Requiring 5LNC On NC No Wheezing No CP, sleeps betetr Went for US guided TC, only 18cc fluid removed Physical Exam Vital signs: Vital Signs 03/01/18 18:00 03/01/18 19:00 03/01/18 19:45 Temperature Pulse Rate 57 L 53 L Respiratory Rate 32 H 30 H Blood Pressure 143/69 H 150/71 H Pulse Oximetry 88 L 88 L 92 L 03/01/18 20:00 03/01/18 21:00 03/01/18 21:01 Temperature 96.6 F L Pulse Rate 53 L 55 L 58 L Respiratory Rate 26 H 29 H 29 H Blood Pressure 155/71 H 166/77 H Pulse Oximetry 92 L 90 L 92 L 03/01/18 21:50 03/01/18 22:00 03/01/18 22:01 Temperature Pulse Rate 44 L 45 L Respiratory Rate 16 17 16 Blood Pressure 134/63 Pulse Oximetry 93 L 94 L 03/01/18 23:00 03/01/18 23:01 03/02/18 00:00 Temperature 98.4 F Pulse Rate 46 L 45 L 42 L Respiratory Rate 33 H 20 15 Blood Pressure 156/72 H Pulse Oximetry 93 L 96 94 L 03/02/18 00:01 03/02/18 01:00 03/02/18 02:00 Temperature Pulse Rate 42 L 44 L 43 L Respiratory Rate 15 15 14 Blood Pressure 131/62 153/71 H Pulse Oximetry 95 92 L 93 L 03/02/18 02:01 03/02/18 03:00 03/02/18 04:00 Temperature 98.6 F Pulse Rate 43 L 49 L 49 L Respiratory Rate 14 29 H 21 Blood Pressure 138/65 165/78 H Pulse Oximetry 95 90 L 92 L 03/02/18 04:01 03/02/18 05:00 03/02/18 05:01 Temperature Pulse Rate 47 L 53 L 52 L Respiratory Rate 19 23 32 H Blood Pressure 154/73 H 140/66 Pulse Oximetry 94 L 89 L 89 L 03/02/18 06:00 03/02/18 06:01 03/02/18 07:00 Temperature Pulse Rate 60 60 51 L Respiratory Rate 26 H 29 H 23 Blood Pressure 183/86 H Pulse Oximetry 91 L 92 L 95 03/02/18 07:01 03/02/18 08:00 03/02/18 08:07 Temperature Pulse Rate 51 L 51 L Respiratory Rate 23 23 Blood Pressure 162/75 H 187/81 H Pulse Oximetry 95 94 L 95 03/02/18 09:00 03/02/18 09:01 03/02/18 09:50 Temperature 98.0 F Pulse Rate 55 L 57 L 62 Respiratory Rate 33 H 37 H 24 Blood Pressure 193/88 H 180/83 H Pulse Oximetry 96 92 L 92 L 03/02/18 10:00 03/02/18 10:26 03/02/18 10:30 Temperature Pulse Rate 51 L 60 60 Respiratory Rate 27 H 27 H 29 H Blood Pressure 146/72 H 156/77 H Pulse Oximetry 92 L 87 L 88 L 03/02/18 10:45 03/02/18 11:00 03/02/18 11:15 Temperature Pulse Rate 56 L 52 L 50 L Respiratory Rate 28 H 24 22 Blood Pressure 145/71 H 146/73 H 148/73 H Pulse Oximetry 91 L 93 L 93 L 03/02/18 11:30 03/02/18 11:45 03/02/18 12:00 Temperature Pulse Rate 51 L 48 L 48 L Respiratory Rate 38 H 21 24 Blood Pressure 151/74 H 152/74 H 168/81 H Pulse Oximetry 93 L 96 93 L 03/02/18 12:15 03/02/18 12:31 03/02/18 12:45 Temperature Pulse Rate 48 L 51 L 48 L Respiratory Rate 31 H 25 H 25 H Blood Pressure 154/72 H 178/84 H 167/82 H Pulse Oximetry 93 L 93 L 94 L 03/02/18 13:00 03/02/18 13:01 03/02/18 13:15 Temperature Pulse Rate 51 L 53 L 48 L Respiratory Rate 38 H 30 H 30 H Blood Pressure 162/77 H 160/75 H Pulse Oximetry 94 L 93 L 94 L 03/02/18 13:30 03/02/18 13:45 03/02/18 14:00 Temperature Pulse Rate 52 L 50 L 51 L Respiratory Rate 31 H 29 H 30 H Blood Pressure 157/70 H 144/64 H 147/67 H Pulse Oximetry 92 L 90 L 93 L 03/02/18 14:15 03/02/18 14:30 03/02/18 14:45 Temperature Pulse Rate 50 L 50 L 50 L Respiratory Rate 29 H 32 H 32 H Blood Pressure 154/74 H 148/71 H 146/70 H Pulse Oximetry 93 L 92 L 93 L 03/02/18 15:00 03/02/18 15:15 03/02/18 15:30 Temperature Pulse Rate 52 L 50 L 57 L Respiratory Rate 29 H 27 H 29 H Blood Pressure 155/75 H 149/72 H 161/77 H Pulse Oximetry 89 L 93 L 92 L 03/02/18 15:45 03/02/18 16:00 Temperature 98.3 F Pulse Rate 50 L 50 L Respiratory Rate 24 27 H Blood Pressure 156/74 H 143/70 H Pulse Oximetry 94 L 94 L Intake & Output 03/01/18 03/02/18 03/02/18 18:59 06:59 18:59 Intake Total 700 / 700 220 / 220 100 / 100 Output Total 700 / 700 175 / 175 Balance 0 / 0 45 / 45 100 / 100 Weight 104.2 kg Intake: IV 100 / 100 100 / 100 100 / 100 Maxipime Inj 1,000 MG In NS Inj 100 / 100 100 / 100 100 / 100 100 ML @ 200 mls/hr IV.SIG Q12H [facility] Rx#:[id number] Oral 600 / 600 120 / 120 Output: Urine 700 / 700 175 / 175 Other: Date of Last Bowel Movement 03/01/18 03/01/18 03/02/18 # Bowel Movements 0 # Incontinent Bowel Movements 1 GENERAL: WBWn NAD SKIN: Warm and dry. HEAD: Normocephalic. EYES: No scleral icterus. No injection or drainage. NECK: Supple, trachea midline. No JVD or lymphadenopathy. CARDIOVASCULAR: Regular rate and rhythm without murmurs, gallops, or rubs. RESPIRATORY: Breath sounds equal bilaterally. No accessory muscle use. GASTROINTESTINAL: Abdomen soft, non-tender, nondistended. MUSCULOSKELETAL: No cyanosis, or edema. BACK: Nontender without obvious deformity. No CVA tenderness. - Urinary Catheter Management Indwelling Urethral Catheter Cath placed during this visit: no Assessment and Plan - Plan IMPRESSION: 1. Chronic obstructive pulmonary disease with mild exacerbation. 2. Acute on chronic renal failure, possible over diuresis. 3. Hyperkalemia, improved. 4. Right BKA. 5. Pleural effusion. PLAN: Supplement 02 aerosol nebs Cont Abx SQ Heparin monitor renal functions Resume home meds, Neurontin 300 mg tid Trazodone [address] Chest to evalute Rt lung hazziness/ effusion
[2018-03-02] MEDS: traZODone 100 MG Tablet PO SCH (20:22)
--- NOTE | 2018-03-02 21:25 | CT ---
EXAM DATE: 03/02/2018 9:18 PM EST AGE/SEX: 72 years / Male INDICATIONS: Cough CLINICAL DATA: This is the patient's initial encounter. Patient reports that signs and symptoms have been present for 4 - 6 days and indicates a pain score of 8/10. MEDICAL/SURGICAL HISTORY: Renal disease. Chronic obstructive pulmonary disease. Hypertension. . B elow Knee Amputation RADIATION DOSE: 17.49 CTDI (mGy) COMPARISON: [facility] [place], CT ABDOMEN & PELVIS W/O CONTRAST, 02/23/2018. . TECHNIQUE: Multiple contiguous axial images were obtained through the chest without contrast. Image s were obtained in suspended respiration using multiple row detector helical technique. Using automa al exposure control and adjustment of the mA and/or kV according to patient size, radiation dose was kept as low as reasonably achievable to obtain optimal diagnostic quality images. DICOM format imag e data is available electronically for review and comparison. FINDINGS: Lung: Patchy groundglass opacities in the upper lobes bilaterally. Dense airspace consolidation in t he inferior lower lobes bilaterally, more prominently on the right. Pleura: Trace left and small slightly loculated right pleural effusions which appear simple in densi ty. Mediastinum: Coronary artery calcifications. Heart is otherwise unremarkable without significant per icardial effusion. Scattered mediastinal nodes with the largest measuring up to 14 mm in the right pa ratracheal region. Osseous Structures: No abnormal focal lytic or blastic bony lesions. Degenerative spondylosis of the thoracic spine with anterior flowing osteophytes in the lower thoracic spine. Soft Tissues: Soft tissues are unremarkable. No significant axillary adenopathy. Other: Visulaized upper abdomen is grossly unremarkable. CONCLUSION: 1. Patchy groundglass bilateral upper lobe airspace disease with more confluent airspace consolidati on in the inferior lower lobes, most notably on the right. Differential considerations include aspira tion, multilobar pneumonia and atypical infection. 2. Trace left and small slightly loculated but simple density pleural effusions. 3. Nonspecific mediastinal adenopathy, likely reactive/infectious in etiology. 4. Prominent coronary artery calcifications. Electronically signed by: Jonatan Hood MD Board Certified Radiologist 03/02/2018 9:24 PM EST
[2018-03-03] MEDS: Artificial Tears Opth Drops 15 ML Bottle EACH EYE SCH ×6 (02:27→22:32)
[2018-03-03] MEDS: Insulin NovoLOG Aspart Correctional Sugar Inj SQ SCH ×5 (02:27→21:01)
[2018-03-03 05:24] LABS: Anion Gap 5 meq/L (5-15); Blood Urea Nitrogen 13 mg/dL (7-18); Calcium 8.3 mg/dL (8.5-10.1); Carbon Dioxide 32.7 meq/L (21.0-32.0); Chloride 105 meq/L (98-107); Glomerular Filtration Rate Greater Than 89 mL/min (>89); Glucose,Random 115 mg/dL (74-106); Potassium 3.6 meq/L (3.5-5.1); Sodium 143 meq/L (136-145)
[2018-03-03] MEDS: Lisinopril 20 MG Tablet PO SCH (08:05)
[2018-03-03] MEDS: Spironolactone 25 MG Tablet PO SCH (08:05)
[2018-03-03] MEDS: Senna/Docusate Sodium 8.6/50 MG Tablet PO SCH ×2 (08:05→20:40)
[2018-03-03] MEDS: Furosemide 40 MG Tablet PO SCH (08:05)
[2018-03-03] MEDS: amLODIPine 10 MG Tablet PO SCH (08:06)
[2018-03-03] MEDS: Atenolol 25 MG Tablet PO SCH (08:06)
[2018-03-03] MEDS: Gabapentin 300 MG Capsule PO SCH ×3 (08:06→17:58)
--- NOTE | 2018-03-03 17:20 | P.PNIM ---
Subjective Interval history: Patient is awake and alert. He is requesting to be discharged today. No other complaints. Physical Exam Vital signs: Vital Signs 03/02/18 20:00 03/02/18 20:07 03/02/18 22:00 Temperature 97.9 F Pulse Rate 45 L 43 L Respiratory Rate 20 Blood Pressure 151/78 H Pulse Oximetry 96 95 03/03/18 00:00 03/03/18 01:48 03/03/18 02:00 Temperature 98.3 F Pulse Rate 42 L 46 L Respiratory Rate 13 Blood Pressure 115/55 L Pulse Oximetry 91 L 93 L 03/03/18 04:00 03/03/18 04:17 03/03/18 06:00 Temperature 98.7 F Pulse Rate 45 L 47 L Respiratory Rate 19 Blood Pressure 160/73 H Pulse Oximetry 97 99 03/03/18 08:00 03/03/18 10:00 03/03/18 12:00 Temperature 98 F 98.2 F Pulse Rate 48 L 49 L 49 L Respiratory Rate 19 19 Blood Pressure 155/76 H 150/70 H Pulse Oximetry 97 97 03/03/18 14:00 03/03/18 15:24 03/03/18 15:28 Temperature Pulse Rate 49 L Respiratory Rate 14 Blood Pressure Pulse Oximetry 91 L Intake & Output 03/02/18 03/03/18 03/03/18 18:59 06:59 18:59 Intake Total 100 / 100 220 / 220 100 / 100 Output Total 400 / 400 Balance 100 / 100 -180 / -180 100 / 100 Weight 105 kg Intake: IV 100 / 100 100 / 100 100 / 100 Maxipime Inj 1,000 MG In NS Inj 100 / 100 100 / 100 100 / 100 100 ML @ 200 mls/hr IV.SIG Q12H [facility] Rx#:[id number] Oral 120 / 120 Output: Urine Amount (Catheter) 400 / 400 Condom 400 / 400 Other: Date of Last Bowel Movement 03/02/18 03/02/18 03/02/18 # Bowel Movements 0 Narrative: Patient is awake and alert x 3 S1S2 Decreased breath sounds at the right base. Right bka, 1+ edema of the left lower ext neuro, no focal neurological deficits - Urinary Catheter Management Indwelling Urethral Catheter Cath placed during this visit: no Condom Cath placed during this visit: no Results - Labs CBC & Chem 7: 02/27/18 05:56 03/03/18 03:39 Laboratory Results - last 24 hr 03/02/18 03/03/18 03/03/18 20:20 02:26 03:39 Sodium 143 Potassium 3.6 Chloride 105 Carbon Dioxide 32.7 H Anion Gap 5 BUN 13 Creatinine 0.83 Estimated GFR Greater than 89 POC Glucose 128 H 134 H Random Glucose 115 H Calcium 8.3 L 03/03/18 03/03/18 08:02 13:44 Sodium Potassium Chloride Carbon Dioxide Anion Gap BUN Creatinine Estimated GFR POC Glucose 115 H 150 H Random Glucose Calcium Microbiology 03/02/18 10:00 Fluid - Pleural fluid Gram Stain - Final 03/02/18 10:00 Fluid - Pleural fluid Body Fluid Culture - Preliminary No growth in 24 hours - Imaging Impressions Chest CT 03/02/18 00:00 CONCLUSION: 1. Patchy groundglass bilateral upper lobe airspace disease with more confluent airspace consolidation in the inferior lower lobes, most notably on the right. Differential considerations include aspiration, multilobar pneumonia and atypical infection. 2. Trace left and small slightly loculated but simple density pleural effusions. 3. Nonspecific mediastinal adenopathy, likely reactive/infectious in etiology. 4. Prominent coronary artery calcifications. Assessment and Plan - Assessment (1) Slkvt-ca-qelqoid kidney injury Code(s): N17.9 - Acute kidney failure, unspecified; N18.9 - Chronic kidney disease, unspecified Status: Acute (2) Hyperkalemia Code(s): E87.5 - Hyperkalemia Status: Acute (3) CHF (congestive heart failure) Code(s): I50.9 - Heart failure, unspecified Status: Acute (4) Diabetes Code(s): E11.9 - Type 2 diabetes mellitus without complications Status: Acute - Plan 72 y/o Male admitted for hypotension and Acute Kidney Injury. Patient was found to have b/l pleural effusions worse on the right. 1. Hypotension resolved, pt now Hypertensive Continue amlodipine, Atenolol held due to bradycardia, HR in 40s, continue Lisinopril I will continue to monitor the blood pressure and adjust the medications as needed. Patient is stable and will be transferred to the [facility] floor today. 2. Left upper ext DVT Patient had an u/s which showed an occlusive thrombus of the cephalic vein. Started on eliquis 10mg bid for 7 days then 5mg daily. Eliquis restarted for tonight. 3. BETSEY on CKD prerenal 2/2 volume depletion overdiuresis Serum cr 6.1 on admission, wnl BETSEY resolved, likely 2/2 to low blood pressure. U/s kidneys shows echogenicity suggestive of CKD. Nephrology following. 4. Acute Hypoxic respiratory failure 2/2 b/l pleural effusions. 5. COPD on 3L baseline oxygen Patient requiring 5L of supplemental oxygen, which is more supplemental oxygen over the past few days. Patient underwent thoracentesis yesterday with only 18cc of greenish fluid. Titrate off of supplemental oxygen, keep oxygen sat above 92%, patient uses 2-3 L at baseline. Repeat ct chest shows patchy infiltrates worse on the right. Will follow up with Pulmonary regarding the findings. Continue breathing txs as needed. Continue antibiotics. Patient is requesting to be discharged back [place] the [place] because of his bed situation there and he does not want to lose it. DVT prophylaxis, pt on eliquis for dvt. (1) Mwybd-ev-mjzzimj kidney injury Qualifiers: Acute renal failure type: unspecified
[2018-03-03] MEDS: traZODone 100 MG Tablet PO SCH (20:36)
--- NOTE | 2018-03-04 01:41 | P.PN ---
Subjective Interval history: ALERT NAD ON O2 Physical Exam Vital signs: Vital Signs 03/03/18 01:48 03/03/18 02:00 03/03/18 04:00 Temperature 98.7 F Pulse Rate 46 L 45 L Respiratory Rate 19 Blood Pressure 160/73 H Pulse Oximetry 93 L 97 03/03/18 04:17 03/03/18 06:00 03/03/18 08:00 Temperature 98 F Pulse Rate 47 L 48 L Respiratory Rate 19 Blood Pressure 155/76 H Pulse Oximetry 99 97 03/03/18 10:00 03/03/18 12:00 03/03/18 14:00 Temperature 98.2 F Pulse Rate 49 L 49 L 49 L Respiratory Rate 19 Blood Pressure 150/70 H Pulse Oximetry 97 03/03/18 15:24 03/03/18 15:28 03/03/18 16:00 Temperature 98.7 F Pulse Rate 47 L Respiratory Rate 14 18 Blood Pressure 147/70 H Pulse Oximetry 91 L 97 03/03/18 18:00 03/03/18 19:00 03/03/18 19:01 Temperature Pulse Rate 49 L 49 L 48 L Respiratory Rate 36 H 28 H Blood Pressure 134/70 Pulse Oximetry 87 L 86 L 03/03/18 19:30 03/03/18 20:00 03/03/18 20:30 Temperature 98.1 F Pulse Rate 46 L 45 L 44 L Respiratory Rate 23 25 H 22 Blood Pressure 144/67 H 143/66 H 140/65 Pulse Oximetry 95 96 96 03/03/18 20:53 03/03/18 21:00 03/03/18 21:31 Temperature Pulse Rate 41 L 41 L Respiratory Rate 20 14 Blood Pressure 141/66 H 138/65 Pulse Oximetry 97 96 98 03/03/18 21:34 03/03/18 22:26 03/04/18 00:00 Temperature 98.3 F 98.1 F Pulse Rate 41 L 42 L Respiratory Rate 20 16 17 Blood Pressure 138/64 138/66 Pulse Oximetry 99 95 Intake & Output 03/03/18 03/03/18 03/04/18 06:59 18:59 06:59 Intake Total 220 / 220 100 / 100 100 / 100 Output Total 400 / 400 Balance -180 / -180 100 / 100 100 / 100 Weight 105 kg 101.8 kg Intake: IV 100 / 100 100 / 100 100 / 100 Maxipime Inj 1,000 MG In NS Inj 100 / 100 100 / 100 100 / 100 100 ML @ 200 mls/hr IV.SIG Q12H [facility] Rx#:[id number] Oral 120 / 120 Output: Urine Amount (Catheter) 400 / 400 Condom 400 / 400 Other: Date of Last Bowel Movement 03/02/18 03/02/18 03/02/18 # Bowel Movements 0 Narrative: alert and oriented x 3 S1S2 decreased breath sounds at bases b/l abd soft, nontender, normal bowel sounds right bka, 1+ edema of b/l lower exts No focal neuro deficits. - Urinary Catheter Management Indwelling Urethral Catheter Cath placed during this visit: no Condom Cath placed during this visit: no Results - Labs CBC & Chem 7: 02/27/18 05:56 03/03/18 03:39 Laboratory Results - last 24 hr 03/03/18 03/03/18 03/03/18 02:26 03:39 08:02 Sodium 143 Potassium 3.6 Chloride 105 Carbon Dioxide 32.7 H Anion Gap 5 BUN 13 Creatinine 0.83 Estimated GFR Greater than 89 POC Glucose 134 H 115 H Random Glucose 115 H Calcium 8.3 L 03/03/18 03/03/18 03/03/18 13:44 17:52 20:54 Sodium Potassium Chloride Carbon Dioxide Anion Gap BUN Creatinine Estimated GFR POC Glucose 150 H 153 H 91 Random Glucose Calcium Microbiology 03/02/18 10:00 Fluid - Pleural fluid Gram Stain - Final 03/02/18 10:00 Fluid - Pleural fluid Body Fluid Culture - Preliminary No growth in 24 hours Assessment and Plan - Plan PNEUMONIA PLEURAL EFFUSION, WITH LOCULATION PLAN O2 ANTIBX THORACENTESIS IF POSSIBLE
[2018-03-04] MEDS: Insulin NovoLOG Aspart Correctional Sugar Inj SQ SCH ×5 (03:00→21:32)
[2018-03-04] MEDS: Artificial Tears Opth Drops 15 ML Bottle EACH EYE SCH ×5 (03:01→18:04)
[2018-03-04] MEDS: amLODIPine 10 MG Tablet PO SCH (08:34)
[2018-03-04] MEDS: Senna/Docusate Sodium 8.6/50 MG Tablet PO SCH ×2 (08:34→21:23)
[2018-03-04] MEDS: Gabapentin 300 MG Capsule PO SCH ×3 (08:34→17:29)
[2018-03-04] MEDS: Lisinopril 20 MG Tablet PO SCH (08:34)
[2018-03-04] MEDS: Spironolactone 25 MG Tablet PO SCH (08:35)
[2018-03-04] MEDS: Furosemide 40 MG Tablet PO SCH (08:35)
--- NOTE | 2018-03-04 08:44 | P.AMA ---
AMA Note - Diagnosis (1) Mfodc-qk-ezevxil kidney injury (2) Hyperkalemia (3) CHF (congestive heart failure) (4) Diabetes AMA Statement: Patient Andrea Cotton has decided to leave the hospital against medical advice. This patient has the capacity to refuse care and understands the risks of leaving, including permanent disability and/or , and has had an opportunity to ask questions about his/her condition. The patient has been informed that he/she may return for care at any time, and follow up has been arranged/advised. Discharge Disposition: Against Medical Advice Patient Condition on Discharge: Stable
--- NOTE | 2018-03-04 08:56 | P.DS ---
Date of admission: 02/23/18 18:58 Primary care physician: Shahrzad Nevarez MD Brief History from admission: This patient is a 72-year-old male with a diagnosis of diabetes mellitus type 2 , hypertension, CHF with preserved ejection fraction, chronic kidney disease. The patient was recently discharged from [facility] after being treated for questionable pneumonia and CHF exacerbation. He was sent back to his [place] [facility] where he was found to have weakness as well as low blood pressure. He was also found to be bradycardic with a heart rate in the 50s. Prior to admission he was on 2 beta-blockers including propanolol and atenolol. He was also in acute kidney injury with an elevated serum creatinine of 6, and hyperkalemia. The patient's diuretics were held and he was started on IV fluids. At baseline the patient uses 3 L of supplemental oxygen, the patient was hypoxic requiring up to 6 L of supplemental oxygen during hospitalization. DS: Diagnosis - Discharge Diagnosis (1) Oqsjk-te-tstqkfy kidney injury Status: Acute (2) Hyperkalemia Status: Acute (3) CHF (congestive heart failure) Status: Acute (4) Diabetes Status: Acute DS: Summary Hospital Course: 1. Hypotension likely secondary to overdiuresis, and antihypertensives resolved 2. Bradycardia 3. Acute kidney injury prerenal, secondary to volume depletion 4. COPD on 3 L baseline oxygen 5. Acute hypoxic respiratory failure secondary to bilateral pleural effusions worse on the right This patient is a 72-year-old male with a diagnosis of diabetes mellitus type 2 , hypertension, CHF with preserved ejection fraction, chronic kidney disease. The patient was recently discharged from [facility] after being treated for questionable pneumonia and CHF exacerbation. He was [place] back [place] [facility] where he was found to have weakness as well as low blood pressure. He was also found to be bradycardic with a heart rate in the 50s. Prior to admission he was on 2 beta-blockers including propanolol and atenolol. He was also in acute kidney injury with an elevated serum creatinine of 6, and hyperkalemia. The patient's diuretics were held and he was started on IV fluids. At baseline the patient uses 3 L of supplemental oxygen, the patient was hypoxic requiring up to 6 L of supplemental oxygen during hospitalization. After the initiation of IV fluids the patient's serum creatinine improved as did his hyperkalemia. Cardiology was consulted to evaluate the patient. After holding the beta-nedra as the patient's heart rate did improve. He still has occasional episodes of bradycardia and his beta blockers will be held on discharge. He should follow-up with his primary care doctor as well as cardiology outpatient in 1-2 weeks. The patient's hypotension also resolved and he is now hypertensive. He can be continued on amlodipine, hydralazine will be added to the patient's medication regimen which potentially help the bradycardia as well. He can follow-up with his primary care doctor and his antihypertensive medications can be adjusted as needed. Lisinopril was also restarted to his medication regimen and that dose was increased after his acute kidney injury resolved. Patient is currently back to his baseline of 3 L of supplemental oxygen with O2 saturation around 95%. CT scan of the chest during this admission showed right- sided pleural effusion, pulmonary was following the patient while he was in house. A thoracentesis was performed however only approximately 18 cc of fluid was removed during the thoracentesis. Cultures from pleural fluid are pending. The patient was kept on antibiotics throughout the hospitalization. He has been on antibiotics for 10 days and will not be discharged on any p.o. antibiotics for now. Further workup was recommended to the patient however at this time he is refusing to undergo any further workup or any other procedures. The risks of leaving AGAINST MEDICAL ADVICE were discussed with the patient however he does not want to undergo any further workup or any invasive procedures. He will be sent back to the [facility] today. The plan was discussed with the patient in person as well as the patient 's son Ralph over the phone. The patient says if he changes his mind over the next few days he will come back to the hospital. 6. Left upper extremity DVT Patient had a left upper extremity ultrasound which showed an occlusive thrombus of the cephalic vein. He has been started on Eliquis 10 mg twice daily for 1 more day then 5 mg p.o. twice daily. - Time Spent with Patient Total time spent providing and/or coordinating discharge services: Greater than 30 minutes - Quality: VTE Deep Vein Thrombosis/Pulmonary Embolism Present on Admission: No Exam Vital signs: Vital Signs 03/03/18 10:00 03/03/18 12:00 03/03/18 14:00 Temperature 98.2 F Pulse Rate 49 L 49 L 49 L Respiratory Rate 19 Blood Pressure 150/70 H Pulse Oximetry 97 01/12/19 15:24 03/03/18 15:28 03/03/18 16:00 Temperature 98.7 F Pulse Rate 47 L Respiratory Rate 14 18 Blood Pressure 147/70 H Pulse Oximetry 91 L 97 03/03/18 18:00 03/03/18 19:00 03/03/18 19:01 Temperature Pulse Rate 49 L 49 L 48 L Respiratory Rate 36 H 28 H Blood Pressure 134/70 Pulse Oximetry 87 L 86 L 03/03/18 19:30 03/03/18 20:00 03/03/18 20:30 Temperature 98.1 F Pulse Rate 46 L 45 L 44 L Respiratory Rate 23 25 H 22 Blood Pressure 144/67 H 143/66 H 140/65 Pulse Oximetry 95 96 96 03/03/18 20:53 03/03/18 21:00 03/03/18 21:31 Temperature Pulse Rate 41 L 41 L Respiratory Rate 20 14 Blood Pressure 141/66 H 138/65 Pulse Oximetry 97 96 98 03/03/18 21:34 03/03/18 22:26 03/04/18 00:00 Temperature 98.3 F 98.1 F Pulse Rate 41 L 42 L Respiratory Rate 20 16 17 Blood Pressure 138/64 138/66 Pulse Oximetry 99 95 03/04/18 04:00 03/04/18 07:54 Temperature 98.0 F 97.1 F L Pulse Rate 48 L 49 L Respiratory Rate 17 18 Blood Pressure 160/72 H 167/76 H Pulse Oximetry 95 96 Intake & Output 03/03/18 03/04/18 03/04/18 18:59 06:59 18:59 Intake Total 100 / 100 220 / 220 Output Total 200 / 200 Balance 100 / 100 20 / 20 Weight 101.8 kg Intake: IV 100 / 100 100 / 100 Maxipime Inj 1,000 MG In NS Inj 100 / 100 100 / 100 100 ML @ 200 mls/hr IV.SIG Q12H [facility] Rx#:[id number] Oral 120 / 120 Output: Urine 200 / 200 Other: Date of Last Bowel Movement 03/02/18 03/02/18 Narrative: Patient is awake and alert x 3 S1S2 Decreased breath sounds at the right base. Right bka, 1+ edema of the left lower ext neuro, no focal neurological deficits Results Procedures completed during hospitalization: Thoracentesis Labs on day of discharge: Labs from last 24 hours 03/04/18 03/03/18 03/03/18 07:48 20:54 17:52 POC Glucose 99 91 153 H 03/03/18 13:44 POC Glucose 150 H Preliminary micro results at discharge 03/02/18 10:00 Body Fluid Culture - Preliminary Fluid - Pleural fluid No growth in 24 hours - Impressions ITS Impressions Abdomen/Pelvis CT 02/23/18 00:00 CONCLUSION: 1. No acute findings within the abdomen and pelvis. Previous cholecystectomy. Mild renal cortical atrophy. Valdez catheter in the bladder. Small fat- containing umbilical hernia. 2. Dense consolidation right lung base with probable partially loculated right pleural effusion. Abdomen/Bladder Ultrasound 02/24/18 11:56 CONCLUSION: 1. Negative renal sonogram. Venous Doppler Study 02/26/18 00:00 CONCLUSION: 1. Negative for deep vein thrombosis 2. 1.9 cm complex thyroid nodule Chest CT 03/02/18 00:00 CONCLUSION: 1. Patchy groundglass bilateral upper lobe airspace disease with more confluent airspace consolidation in the inferior lower lobes, most notably on the right. Differential considerations include aspiration, multilobar pneumonia and atypical infection. 2. Trace left and small slightly loculated but simple density pleural effusions. 3. Nonspecific mediastinal adenopathy, likely reactive/infectious in etiology. 4. Prominent coronary artery calcifications. Chest X-Ray 03/02/18 00:00 CONCLUSION: No significant interval change Thoracentesis Ultrasound 03/02/18 00:00 CONCLUSION: Uncomplicated thoracentesis. Discharge Plan - Discharge Disposition Patient Disposition: Against Medical Advice - Discharge Condition Condition: Stable - Discharge Order Discharge Orders: AMA Discharge (Routine); Ordered 03/04/18 Ordered By: Indira Mendosa Discharge Order (Routine); Ordered 03/04/18 Ordered By: Indira Mendosa - Physicians Team Primary Care Provider: Shahrzad Nevarez Attending Provider: Indira Mendosa Other Providers: Ignacio Ledesma MD ; Ephraim Thacker MD ; Dragan Julio MD
--- NOTE | 2018-03-04 18:32 | P.PN ---
Subjective Interval history: ALERT NO SOB Physical Exam Vital signs: Vital Signs 03/03/18 19:00 03/03/18 19:01 03/03/18 19:30 Temperature Pulse Rate 49 L 48 L 46 L Respiratory Rate 36 H 28 H 23 Blood Pressure 134/70 144/67 H Pulse Oximetry 87 L 86 L 95 03/03/18 20:00 03/03/18 20:30 03/03/18 20:53 Temperature 98.1 F Pulse Rate 45 L 44 L Respiratory Rate 25 H 22 Blood Pressure 143/66 H 140/65 Pulse Oximetry 96 96 97 03/03/18 21:00 03/03/18 21:31 03/03/18 21:34 Temperature Pulse Rate 41 L 41 L Respiratory Rate 20 14 20 Blood Pressure 141/66 H 138/65 Pulse Oximetry 96 98 03/03/18 22:26 03/04/18 00:00 03/04/18 04:00 Temperature 98.3 F 98.1 F 98.0 F Pulse Rate 41 L 42 L 48 L Respiratory Rate 16 17 17 Blood Pressure 138/64 138/66 160/72 H Pulse Oximetry 99 95 95 03/04/18 07:54 03/04/18 08:00 03/04/18 09:07 Temperature 97.1 F L Pulse Rate 49 L Respiratory Rate 18 Blood Pressure 167/76 H Pulse Oximetry 96 96 92 L 03/04/18 12:00 03/04/18 16:00 Temperature 98.0 F 98.8 F Pulse Rate 57 L 54 L Respiratory Rate 19 19 Blood Pressure 117/58 L 111/60 Pulse Oximetry 92 L 97 Intake & Output 03/03/18 03/04/18 03/04/18 18:59 06:59 18:59 Intake Total 100 / 100 220 / 220 820 / 820 Output Total 200 / 200 600 / 600 Balance 100 / 100 20 / 20 220 / 220 Weight 101.8 kg Intake: IV 100 / 100 100 / 100 100 / 100 Maxipime Inj 1,000 MG In NS Inj 100 / 100 100 / 100 100 / 100 100 ML @ 200 mls/hr IV.SIG Q12H [facility] Rx#:[id number] Oral 120 / 120 720 / 720 Output: Urine 200 / 200 600 / 600 Other: # Incontinent Voids 3 Date of Last Bowel Movement 03/02/18 03/02/18 03/02/18 Narrative: Patient is awake and alert x 3 S1S2 Decreased breath sounds at the right base. Right bka, 1+ edema of the left lower ext neuro, no focal neurological deficits - Urinary Catheter Management Indwelling Urethral Catheter Cath placed during this visit: no Condom Cath placed during this visit: no Results - Labs CBC & Chem 7: 02/27/18 05:56 03/03/18 03:39 Laboratory Results - last 24 hr 03/03/18 03/04/18 03/04/18 20:54 07:48 12:20 POC Glucose 91 99 157 H 03/04/18 17:28 POC Glucose 130 H Microbiology 03/02/18 10:00 Fluid - Pleural fluid Gram Stain - Final 03/02/18 10:00 Fluid - Pleural fluid Body Fluid Culture - Preliminary No growth in 48 hours - Procedures Thoracentesis Assessment and Plan - Plan PNEUMONIA PLEURAL EFFUSION, WITH LOCULATION PLAN O2 ANTIBX THORACENTESIS IF POSSIBLE
[2018-03-04] MEDS: traZODone 100 MG Tablet PO SCH (21:23)
[2018-03-05] MEDS: Artificial Tears Opth Drops 15 ML Bottle EACH EYE SCH ×4 (02:01→14:45)
[2018-03-05] MEDS: Insulin NovoLOG Aspart Correctional Sugar Inj SQ SCH ×4 (02:02→17:32)
[2018-03-05] MEDS: Gabapentin 300 MG Capsule PO SCH ×3 (09:17→17:32)
[2018-03-05] MEDS: Spironolactone 25 MG Tablet PO SCH (09:17)
[2018-03-05] MEDS: Lisinopril 20 MG Tablet PO SCH (09:17)
[2018-03-05] MEDS: Senna/Docusate Sodium 8.6/50 MG Tablet PO SCH (09:17)
[2018-03-05] MEDS: amLODIPine 10 MG Tablet PO SCH (09:17)
[2018-03-05] MEDS: Furosemide 40 MG Tablet PO SCH (09:17)
--- NOTE | 2018-03-05 16:16 | P.PNCA ---
Subjective Interval history: Patient denies any CP, pressure, palpitations, dizziness, edema or SOB. Patient states that he is feeling fine. Medications and Allergies Allergies Allergy/AdvReac Type Severity Reaction Status Date / Time codeine Allergy Mild Constipatio Verified 02/23/18 17:36 n Home Medications Medication Instructions Recorded Confirmed Type amoxicillin-pot clavulanate 1 tab PO Q12H 02/23/18 02/23/18 History [Augmentin] atenolol [Tenormin] 50 mg PO DAILY 02/23/18 02/23/18 History budesonide-formoterol [Symbicort] 2 puff INHALATION BID 02/23/18 02/23/18 History clopidogrel [Plavix] 75 mg PO DAILY 02/23/18 02/23/18 History cyanocobalamin (vitamin B-12) 1,000 mcg IM QMONTH 02/23/18 02/23/18 History dexamethasone sodium phosphate 4 mg IV QWEEK 02/23/18 02/23/18 History doxazosin 2 mg PO DAILY 02/23/18 02/23/18 History fexofenadine [Shiloh Allergy] 60 mg PO BID 02/23/18 02/23/18 History furosemide [Lasix] 40 mg PO BID 02/23/18 02/23/18 History gabapentin 300 mg PO TID 02/23/18 02/23/18 History glipizide 5 mg PO DAILY 02/23/18 02/23/18 History guaifenesin [Mucinex] 600 mg PO Q12H 02/23/18 02/23/18 History ipratropium-albuterol 3 ml INHALATION QID 02/23/18 02/23/18 History lisinopril 10 mg PO DAILY 02/23/18 02/23/18 History melatonin 3 mg PO HS PRN 02/23/18 02/23/18 History montelukast 10 mg PO QPM 02/23/18 02/23/18 History oxycodone-acetaminophen [Percocet] 1 tab PO Q4H PRN 02/23/18 02/23/18 History pantoprazole [Protonix] 40 mg PO DAILY 02/23/18 02/23/18 History potassium chloride 20 meq PO BID 02/23/18 02/23/18 History propranolol 40 mg PO BID 02/23/18 02/23/18 History ropinirole [Requip] 2 mg PO HS 02/23/18 02/23/18 History sertraline [Zoloft] 50 mg PO DAILY 02/23/18 02/23/18 History trazodone 150 mg PO DAILY 02/23/18 02/23/18 History carboxymethylcellulose sodium 1 drop EACH EYE QID 03/04/18 03/05/18 History [Refresh Plus] Active Medications: Active Medications Al Hydroxide/Mg Hydroxide (Milk Of Magnesia Liq) 30 ml PO Q12H PRN PRN Reason: Mild Constipation Albuterol (Albuterol Neb (Prn)) 2.5 mg NEB Q2HR NEB PRN PRN Reason: SHORTNESS OF BREATH/WHEEZING Amlodipine Besylate (Norvasc) 10 mg PO DAILY [facility] Last Admin: 03/05/18 09:17 Dose: 10 mg Artificial Tears (Tears Naturale Opth Drops) 1 drop EACH EYE Q4H [facility] Last Admin: 03/05/18 14:45 Dose: Not Given Bisacodyl (Dulcolax Supp) 10 mg RECTAL DAILY PRN PRN Reason: SEVERE CONSITIPATION Dextrose (D50w Vial) 50 ml IV.PUSH UNSCH PRN PRN Reason: PER HYPOGLYCEMIA PROTOCOL Furosemide (Lasix) 40 mg PO DAILY [facility] Last Admin: 03/05/18 09:17 Dose: 40 mg Gabapentin (Neurontin) 300 mg PO TID [facility] Last Admin: 03/05/18 12:46 Dose: 300 mg Glucagon (Glucagon Inj) 1 mg OTHER PRN PRN PRN Reason: for Hypoglycemia Protocol Cefepime HCl 1,000 mg/ Sodium (Chloride) 100 mls @ 200 mls/hr IV.SIG Q12H [facility] Last Infusion: 03/05/18 09:55 Dose: Infused Insulin Aspart (Novolog Insulin Correctional Sugar Inj) 0 unit SQ ACHS AND 3AM BASIL; Protocol Last Admin: 03/05/18 12:09 Dose: Not Given Lactulose (Lactulose Liq) 30 ml PO DAILY PRN PRN Reason: SEVERE CONSITIPATION Lisinopril (Prinivil) 40 mg PO DAILY [facility] Last Admin: 03/05/18 09:17 Dose: 40 mg Miscellaneous (Pill Splitter) 1 each OTHER UNSCH PRN PRN Reason: SEE LABEL COMMENTS Ondansetron HCl (Zofran Inj) 4 mg IV.PUSH Q6H PRN PRN Reason: NAUSEA OR VOMITING Last Admin: 03/03/18 05:41 Dose: 4 mg Oxycodone/Acetaminophen (Percocet 5/325 Mg) 1 tab PO Q6H PRN PRN Reason: PAIN SCALE 6 TO 10 Last Admin: 03/05/18 15:43 Dose: 1 tab Pantoprazole Sodium (Protonix) 40 mg PO DAILY [facility] Last Admin: 03/05/18 09:17 Dose: 40 mg Senna/Docusate Sodium (Jo-Colace) 1 tab PO BID [facility] Last Admin: 03/05/18 09:17 Dose: 1 tab Sennosides (Senokot) 17.2 mg PO Q12H PRN PRN Reason: Moderate Constipation Sodium Chloride (Ns Flush) 2 ml IV.FLUSH BID [facility] Last Admin: 03/05/18 09:20 Dose: 2 ml Sodium Chloride (Ns Flush) 2 ml IV.FLUSH PRN PRN PRN Reason: FLUSH AFTER USING IV ACCESS Last Admin: 02/25/18 08:39 Dose: 2 ml Spironolactone (Aldactone) 25 mg PO DAILY [facility] Last Admin: 03/05/18 09:17 Dose: 25 mg Trazodone HCl (Desyrel) 150 mg PO HS [facility] Last Admin: 03/04/18 21:23 Dose: 150 mg Physical Exam Vital signs: Vital Signs 03/04/18 20:00 03/05/18 00:00 03/05/18 08:10 Temperature 97.3 F L 98.2 F 98.0 F Pulse Rate 54 L 54 L 56 L Respiratory Rate 16 16 20 Blood Pressure 121/63 131/61 138/66 Pulse Oximetry 96 96 93 L 03/05/18 09:27 03/05/18 10:50 03/05/18 15:15 Temperature 97.9 F 97.8 F Pulse Rate 55 L 56 L Respiratory Rate 20 20 Blood Pressure 138/64 127/59 L Pulse Oximetry 93 L 92 L 95 Intake & Output 03/04/18 03/05/18 03/05/18 18:59 06:59 18:59 Intake Total 820 / 820 100 / 100 100 / 100 Output Total 600 / 600 400 / 400 800 / 800 Balance 220 / 220 -300 / -300 -700 / -700 Weight 101.4 kg Intake: IV 100 / 100 100 / 100 100 / 100 Maxipime Inj 1,000 MG In NS Inj 100 / 100 100 / 100 100 / 100 100 ML @ 200 mls/hr IV.SIG Q12H BASIL Rx#:[id number] Oral 720 / 720 Output: Urine 600 / 600 400 / 400 800 / 800 Other: # Incontinent Voids 3 Date of Last Bowel Movement 03/02/18 - Constitutional no acute distress - Routine HEENT Exam Head: Present: normocephalic Eye: Present: PERRL ENT: Present: mucous membranes moist - Routine Neck Exam Present: full ROM - Routine Respiratory Exam Present: crackles Comments: fine crackles bilateral lower lobes. - Routine Cardiovascular Exam Present: S1, S2. Absent: gallop, rubs - Routine Abdominal Exam Present: normoactive bowel sounds - Routine Extremities Exam Present: full ROM, pulses intact, normal capillary refill. Absent: cyanosis, clubbing, edema Comments: RBKA - Routine Skin Exam Present: intact - Routine Neurological Exam Present: oriented X3 - Detailed Neurological Exam: Coma Scale Eye Opening: Spontaneous Verbal Response: Oriented Motor Response: Obey commands Jose Coma Scale Total: 15 - Routine Psychiatric Exam Present: normal affect - Urinary Catheter Management Indwelling Urethral Catheter Cath placed during this visit: no Condom Cath placed during this visit: no Results 02/27/18 05:56 03/03/18 03:39 Intake and Output 03/05/18 03/05/18 03/05/18 06:59 14:59 22:59 Intake Total 100 / 100 Output Total 400 / 400 800 / 800 Balance -400 / -400 -700 / -700 Intake: IV 100 / 100 Maxipime Inj 1,000 MG In NS Inj 100 / 100 100 ML @ 200 mls/hr IV.SIG Q12H BASIL Rx#:[id number] Output: Urine 400 / 400 800 / 800 Other: Weight 101.4 kg Assessment and Plan - Assessment (1) Hypotension Code(s): I95.9 - Hypotension, unspecified Status: Acute (2) [id number]-[id number] kidney injury Code(s): N17.9 - Acute kidney failure, unspecified; N18.9 - Chronic kidney disease, unspecified Status: Acute (3) History of pneumonia Code(s): Z87.01 - Personal history of pneumonia (recurrent) Status: Acute (4) Urinary tract infection Code(s): N39.0 - Urinary tract infection, site not specified Status: Acute (5) Hyperkalemia Code(s): E87.5 - Hyperkalemia Status: Acute (6) CHF (congestive heart failure) Code(s): I50.9 - Heart failure, unspecified Status: Acute (7) Diabetes Code(s): E11.9 - Type 2 diabetes mellitus without complications Status: Acute - Plan Overall improvement. There are no new cardiac issues at this time. We will continue with current cardiac treatment plan. Patient can be discharged [facility] from a [facility] standpoint. We will see him back in our office in 1-2 weeks after discharge from the hospital. The patient was seen and evaluated by Dr. Garcia who participated in care, management and decision making. - Attending Attestation Patient seen and examined. I reviewed and agree with the evaluation and plan as presented. No new cardiac issues. Anticipate discharge back to [facility] as planned. (1) Hypotension Qualifiers: Qualified Code(s): I95.89 - Other hypotension; E86.1 - Hypovolemia (4) Urinary tract infection Qualifiers: Qualified Code(s): N30.00 - Acute cystitis without hematuria
--- NOTE | 2018-03-05 16:23 | P.PNIM ---
Subjective Interval history: Patient says he feels well this afternoon. He wants to go back to his SNF. Physical Exam Vital signs: Vital Signs 03/04/18 20:00 03/05/18 00:00 03/05/18 08:10 Temperature 97.3 F L 98.2 F 98.0 F Pulse Rate 54 L 54 L 56 L Respiratory Rate 16 16 20 Blood Pressure 121/63 131/61 138/66 Pulse Oximetry 96 96 93 L 03/05/18 09:27 03/05/18 10:50 03/05/18 15:15 Temperature 97.9 F 97.8 F Pulse Rate 55 L 56 L Respiratory Rate 20 20 Blood Pressure 138/64 127/59 L Pulse Oximetry 93 L 92 L 95 Intake & Output 03/04/18 03/05/18 03/05/18 18:59 06:59 18:59 Intake Total 820 / 820 100 / 100 100 / 100 Output Total 600 / 600 400 / 400 800 / 800 Balance 220 / 220 -300 / -300 -700 / -700 Weight 101.4 kg Intake: IV 100 / 100 100 / 100 100 / 100 Maxipime Inj 1,000 MG In NS Inj 100 / 100 100 / 100 100 / 100 100 ML @ 200 mls/hr IV.SIG Q12H BASIL Rx#:[id number] Oral 720 / 720 Output: Urine 600 / 600 400 / 400 800 / 800 Other: # Incontinent Voids 3 Date of Last Bowel Movement 03/02/18 Narrative: Patient is awake and alert x 3 S1S2 Decreased breath sounds at the right base. Right bka, 1+ edema of the left lower ext neuro, no focal neurological deficits - Urinary Catheter Management Indwelling Urethral Catheter Cath placed during this visit: no Condom Cath placed during this visit: no Results - Labs CBC & Chem 7: 02/27/18 05:56 03/03/18 03:39 Laboratory Results - last 24 hr 03/04/18 03/04/18 03/05/18 17:28 21:31 07:50 POC Glucose 130 H 174 H 111 H 03/05/18 12:04 POC Glucose 119 H Microbiology 03/02/18 10:00 Fluid - Pleural fluid Gram Stain - Final 03/02/18 10:00 Fluid - Pleural fluid Body Fluid Culture - Final No growth in 72 hours (aerobically and anaerobically ) - Procedures Thoracentesis Assessment and Plan - Assessment (1) [id number] kidney injury Code(s): N17.9 - Acute kidney failure, unspecified; N18.9 - Chronic kidney disease, unspecified Status: Acute (2) Hyperkalemia Code(s): E87.5 - Hyperkalemia Status: Acute (3) CHF (congestive heart failure) Code(s): I50.9 - Heart failure, unspecified Status: Acute (4) Diabetes Code(s): E11.9 - Type 2 diabetes mellitus without complications Status: Acute - Plan 03/05/18 Patient was re evaluated today. He was kept in house as his bed availability changed at the [facility]. Patient was seen by pulmonology and his symptoms have improved. He is now on 3 L of supplemental oxygen and will be discharged back to the SNF, the pt does not want any other further aggressive management of his right sided pleural effusion. He will be discharged back to the SNF, continue 3L of supplemental oxygen. 1. Hypotension likely secondary to overdiuresis, and antihypertensives resolved 2. Bradycardia 3. Acute kidney injury prerenal, secondary to volume depletion 4. COPD on 3 L baseline oxygen 5. Acute hypoxic respiratory failure secondary to bilateral pleural effusions worse on the right This patient is a 72-year-old male with a diagnosis of diabetes mellitus type 2 , hypertension, CHF with preserved ejection fraction, chronic kidney disease. The patient was recently discharged from [facility] after being treated for questionable pneumonia and CHF exacerbation. He was [facility] back [facility] where he was found to have weakness as well as low blood pressure. He was also found to be bradycardic with a heart rate in the 50s. Prior to admission he was on 2 beta-blockers including propanolol and atenolol. He was also in acute kidney injury with an elevated serum creatinine of 6, and hyperkalemia. The patient's diuretics were held and he was started on IV fluids. At baseline the patient uses 3 L of supplemental oxygen, the patient was hypoxic requiring up to 6 L of supplemental oxygen during hospitalization. After the initiation of IV fluids the patient's serum creatinine improved as did his hyperkalemia. Cardiology was consulted to evaluate the patient. After holding the beta-nedra as the patient's heart rate did improve. He still has occasional episodes of bradycardia and his beta blockers will be held on discharge. He should follow-up with his primary care doctor as well as cardiology outpatient in 1-2 weeks. The patient's hypotension also resolved and he is now hypertensive. He can be continued on amlodipine, hydralazine will be added to the patient's medication regimen which potentially help the bradycardia as well. He can follow-up with his primary care doctor and his antihypertensive medications can be adjusted as needed. Lisinopril was also restarted to his medication regimen and that dose was increased after his acute kidney injury resolved. Patient is currently back to his baseline of 3 L of supplemental oxygen with O2 saturation around 95%. CT scan of the chest during this admission showed right- sided pleural effusion, pulmonary was following the patient while he was in house. A thoracentesis was performed however only approximately 18 cc of fluid was removed during the thoracentesis. Cultures from pleural fluid are pending. The patient was kept on antibiotics throughout the hospitalization. He has been on antibiotics for 10 days and will not be discharged on any p.o. antibiotics for now. Further workup was recommended to the patient however at this time he is refusing to undergo any further workup or any other procedures. The risks of leaving AGAINST MEDICAL ADVICE were discussed with the patient however he does not want to undergo any further workup or any invasive procedures. He will be sent back to the [facility] today. The plan was discussed with the patient in person as well as the patient 's son Ralph over the phone. The patient says if he changes his mind over the next few days he will come back to the hospital. 6. Left upper extremity DVT Patient had a left upper extremity ultrasound which showed an occlusive thrombus of the cephalic vein. He has been started on Eliquis 10 mg twice daily for 1 more day then 5 mg p.o. twice daily (1) [id number]-prwomra kidney injury Qualifiers: Acute renal failure type: unspecified
== END 2018-03-05 18:30 | DRG 682 ==
LOC: NEPC 17:27 → NEDA 18:58 → HIMC 21:15 → N07 03-03 22:10
PROVIDERS: ADMIT Hospitalist; ATTEND Hospitalist
DX: I50.32 Chronic diastolic (congestive) heart failure; I13.0 Hypertensive heart and chronic kidney disease with heart failure and stage 1 through stage 4 chronic kidney disease, or unspecified chronic kidney disease; N17.9 Acute kidney failure, unspecified; R40.2410 Glasgow coma scale score 13-15, unspecified time; T50.2X5A Adverse effect of carbonic-anhydrase inhibitors, benzothiadiazides and other diuretics, initial encounter; E66.9 Obesity, unspecified; J44.1 Chronic obstructive pulmonary disease with (acute) exacerbation; J18.9 Pneumonia, unspecified organism; E86.1 Hypovolemia; R00.1 Bradycardia, unspecified; Z79.4 Long term (current) use of insulin; E86.0 Dehydration; J44.0 Chronic obstructive pulmonary disease with (acute) lower respiratory infection; I27.20 Pulmonary hypertension, unspecified; Z79.899 Other long term (current) drug therapy; N18.9 Chronic kidney disease, unspecified; I82.619 Acute embolism and thrombosis of superficial veins of unspecified upper extremity; J96.01 Acute respiratory failure with hypoxia; B37.49 Other urogenital candidiasis; Z89.511 Acquired absence of right leg below knee; E78.5 Hyperlipidemia, unspecified; Z88.5 Allergy status to narcotic agent; I95.9 Hypotension, unspecified; E11.22 Type 2 diabetes mellitus with diabetic chronic kidney disease; E87.5 Hyperkalemia; Z79.84 Long term (current) use of oral hypoglycemic drugs; Z99.81 Dependence on supplemental oxygen; N30.00 Acute cystitis without hematuria
CPT/HCPCS: 32555; 71010; 71045; 71250; 74176; 76775; 76937; 80048; 80053; 81001; 82550; 82552; 82945; 82948; 82962; 83520; 83605; 83615; 83735; 83880; 84100; 84155; 84157; 84484; 85025; 85027; 85610; 87040; 87070; 87086; 87205; 87641; 88112; 88305; 89051; 90760; 93005; 93306; 93971; 94640; 94664; 94665; 96360; 99291; C1729; J0692; J1644; J1815; J1940; J2405; J7030; J7050; P9612